=== PATIENT | female | born 1945 | race Caucasian/White ===

== ENCOUNTER → 2016-09-18 | Outpatient (CLI) | payer OTHER ==
[~2016-09-18] MED LIST: AMOX500T PO; AMOX875T PO; ASPEC81 PO; ATEN50TA8 PO; ATOR-24 PO; CEPH500C2 PO; ECRCR EXT; FLUT1INH7 INH; FRS/40 PO; LISI-788 PO; LSN20 PO; LVMI SC; METO-452 PO; NICO14DI5 TD; POTA10CA28 PO; SALI0.6510; SNTO30 EXT; VNTHFA/IN INH; VTMD1000 PO
--- NOTE | 2016-09-18 11:51 | DIAGNOSTIC IMAGING REPORT ---
CHEST 2 VIEWS ROUTINE CLINICAL HISTORY: COPD EXACT dyspnea COMPARISON STUDY: No previous studies for comparison. FINDINGS: Small bilateral pleural effusions. Mild cardia megaly. Lungs otherwise appear clear. IMPRESSION: Small bilateral pleural effusions. Mild cardia megaly. Electronically signed by: Humberto Hdz M.D. 09/18/2016 11:50 AM Dictated Date/Time: 09/18/2016 11:50 AM
[2016-09-18 12:50] LABS: BASO % 0.4 %; BASO ABS # 0.04 K/uL (0-0.2); EOS % 2.7 %; HEMATOCRIT 43.5 % (37-47); IG% 0.2 %; LYMPH % 8.7 %; LYMPH ABS # 0.85 K/uL (1.2-3.4); MEAN CELL VOLUME 92.6 fL (80-100); MEAN CORPUSCULAR HEMOGLOBIN 29.6 pg (25-34); MEAN PLATELET VOLUME 8.9 fL (7.4-10.4); MONO % 7.2 %; NEUT % 80.8 %; PLATELET COUNT 296 K/uL (130-400); WHITE BLOOD COUNT 9.81 K/uL (4.8-10.8)
[2016-09-18 13:14] LABS: COMPLETE YES
[2016-09-18 13:20] LABS: BLOOD UREA NITROGEN 9 mg/dl (7-18); GLUCOSE 68 mg/dl (70-99)
[2016-09-18 13:21] LABS: ALB/GLOB RATIO 0.8 (0.9-2); ALKALINE PHOSPHATASE 111 U/L (45-117); ALT/SGPT 25 U/L (12-78); AST/SGOT 28 U/L (15-37); BUN/CREATININE RATIO 18.2 (10-20); CALCIUM 8.2 mg/dl (8.5-10.1); CARBON DIOXIDE 24 mmol/L (21-32); CHLORIDE 99 mmol/L (98-107); CREATININE 0.48 mg/dl (0.60-1.20); POTASSIUM 4.6 mmol/L (3.5-5.1); SODIUM 134 mmol/L (136-145)
== END | disposition home or self-care (01) ==
LOC: C.LABPVFM 11:32
PROVIDERS: ATTEND Nurse Practitioner
DX: J44.1 Chronic obstructive pulmonary disease with (acute) exacerbation (principal); J90 Pleural effusion, not elsewhere classified

== ENCOUNTER 2016-09-19 13:29 | Inpatient (IN) | payer OTHER ==
[~2016-09-19] VITALS: Ht 160 cm; Wt 73.1 kg
[2016-09-19] MEDS ORDERED: FLUT1INH7 INH (13:53)
[2016-09-19] MEDS ORDERED: ATOR-24 PO (13:53)
[2016-09-19] MEDS ORDERED: LISI-788 PO (13:53)
[2016-09-19] MEDS ORDERED: LVMI SC (13:53)
[2016-09-19] MEDS ORDERED: VNTHFA/IN INH (13:53)
[2016-09-19] MEDS ORDERED: ATEN50TA8 PO (13:53)
[2016-09-19] MEDS ORDERED: SODIUM CHLORIDE 0.9% 1000ML 1,000 ML IV STA (13:55)
--- NOTE | 2016-09-19 13:59 | EMERGENCY ROOM VISIT NOTE ---
History Report prepared by Eric: Desire Gill Under the Supervision of: Dr. Kishan Bustillo M.D. First contact with patient: 13:45 Chief Complaint: REFERRED BY DOCTOR Stated Complaint: FAMILY DOCTOR SENT TO ER History of Present Illness The patient is a 71 year old female who presents to the Emergency Room with complaints of persistent bilateral leg swelling for the past two weeks. She currently rates her discomfort as a 5/10 in severity. The patient states that she feels fine other than the swelling in her legs. The patient's daughter states that the patient saw her PCP yesterday and was instructed to come to the emergency department for further evaluation. The patient states that she saw her PCP for her shortness of breath. She states that she has had a productive cough, noting white sputum. The patient's daughter states that the patient has ulcers to her legs, fluid on her lungs, and had an elevated d-dimer at 720. The patient states that she is diabetic and her blood glucose levels have been fluctuating. She reports that she is a smoker, and reports a history of COPD and emphysema. The patient states that she had diarrhea this morning. She reports normal fluid intake. The patient denies any fever, chest pain, nausea, vomiting, or abdominal pain. The patient denies being on any blood thinners. Source of History: patient, family (daughter) Onset: two weeks Position: leg (bilateral) Symptom Intensity: 5/10 Quality: other (swelling) Timing: other (persistent) Associated Symptoms: + SOB, + diarrhea, No fevers, No chest pain, No nausea , No vomiting, No abdominal pain Review of Systems See HPI for pertinent positives & negatives. A total of 10 systems reviewed and were otherwise negative. Past Medical & Surgical Medical Problems: (1) COPD (chronic obstructive pulmonary disease) (2) Diabetes (3) Emphysema lung (4) Shortness of breath Old medical records were reviewed. Nurse's notes were reviewed and I agree with. Family History No pertinent family history stated. Social History Smoking Status: Current Every Day Smoker Drug Use: none Marital Status: Current/Historical Medications Scheduled Atenolol (Tenormin), 50 MG PO QAM Atorvastatin (Lipitor), 40 MG PO DAILY Fluticasone Furoate-Vilanterol (Breo Ellipta 200-25 Mcg/INH), 2 PUFF INH BID Insulin Detemir (Levemir), 46 UNITS SC DAILY Lisinopril/Hctz (Zestoretic 20MG/25MG), 1 TAB PO DAILY Scheduled PRN Albuterol Hfa (Ventolin Hfa), 2-4 PUFFS INH Q6H PRN for Shortness of Breath Allergies Coded Allergies: No Known Allergies (Unverified , 09/19/16) Physical Exam Vital Signs Date Time Temp Pulse Resp B/P (MAP) Pulse Ox O2 Delivery O2 Flow Rate FiO2 09/19/16 17:10 82 18 140/92 98 Room Air 09/19/16 15:11 85 20 139/82 96 Room Air 09/19/16 14:25 86 09/19/16 13:36 37.1 74 17 130/76 94 Room Air Physical Exam General: Well developed well nourished chronically ill appearing older female in no acute distress, breathing comfortably on room air. Normal speech HEENT: Normal cephalic atraumatic. Pupils are equal round and reactive to light. Sclerae anicteric. Extraocular movements are intact. Oropharynx is pink with moist mucous membranes. No swelling of the mouth lips or tongue. Neck: Supple with a midline trachea. No meningeal signs or stiffness, no JVD or bruits. No Stridor. Chest: Clear to auscultation bilaterally. No wheezes or rhonchi. No increased work of breathing. Heart: regular rate and rhythm. Abdomen: Soft nontender, nondistended without rebound guarding or rigidity. Extremities: Mild swelling bilaterally with pinkish discoloration to both legs. Multiple ulcers. No clubbing. No calf tenderness or assymetry. She has a discoloration of both of her legs which is somewhat positional is difficult to feel a pulse. Spine/Back. Non tender to palpation. No CVA tenderness Skin: Good turgor without rashes. Neurologic exam: Cranial nerves two through 12 are intact. Motor and sensation are intact and symmetrical throughout. Medical Decision & Procedures ER Provider Diagnostic Interpretation: Radiology results as stated below per my review and radiologist interpretation: CHEST ONE VIEW PORTABLE HISTORY: Atypical CHEST PAIN COMPARISON: Chest 09/18/2016. FINDINGS: The heart remains mildly enlarged. Small bilateral pleural effusions, unchanged. No pneumothorax. No new focal lung consolidations. No evidence for pulmonary edema. IMPRESSION: No change in the mild cardiomegaly and small bilateral pleural effusions. Electronically signed by: Alvarado Moyer M.D. 09/19/2016 2:24 PM Dictated Date/Time: 09/19/2016 2:[address] ANGIOGRAM OF THE CHEST CLINICAL HISTORY: Difficulty breathing. COMPARISON STUDY: Chest x-ray dated 09/17/2016 TECHNIQUE: Following the IV administration of 93 mL of Optiray-320, CT angiogram of the thorax was performed from the thoracic inlet to the lung bases utilizing the pulmonary embolus protocol. Images are reviewed in the axial, sagittal, and coronal planes. IV contrast was administered without complication. MIP imaging was performed. CT DOSE: 572.56 mGy.cm FINDINGS: No pathologically enlarged axillary mediastinal or hilar lymph nodes were visualized. There is mild ectasia of the a sitting thoracic aorta which measures 36 mm. The heart is enlarged. There are coronary artery calcifications present. There were no pulmonary artery filling defects to indicate acute pulmonary embolism. There are small bilateral pleural effusions. There is lower lobe bronchial wall thickening and mucous plugging. There is edema within the left lateral chest wall. There are T5 and T7 vertebral body compression deformities. IMPRESSION: 1. No evidence of acute pulmonary embolism 2. Bilateral pleural effusions 3. Bronchial wall thickening and lower lobe mucus plugging Electronically signed by: Alexander Fernandez M.D. 09/19/2016 3:57 PM Dictated Date/Time: 09/19/2016 3:53 PM Laboratory Results 09/19/16 14:30 Red Blood Count 4.47, Mean Corpuscular Volume 90.4, Mean Corpuscular Hemoglobin 28.6, Mean Corpuscular Hemoglobin Concent 31.7, Mean Platelet Volume 8.6, Neutrophils (%) (Auto) 80.5, Lymphocytes (%) (Auto) 9.3, Monocytes (%) (Auto) 8.2, Eosinophils (%) (Auto) 1.7, Basophils (%) (Auto) 0.2, Neutrophils # (Auto) 6.66, Lymphocytes # (Auto) 0.77, Monocytes # (Auto) 0.68, Eosinophils # (Auto) 0.14, Basophils # (Auto) 0.02 09/19/16 14:30 Test 09/19/16 14:30 09/19/16 14:35 09/19/16 14:48 09/19/16 18:18 White Blood Count 8.28 K/uL (4.8-10.8) Red Blood Count 4.47 M/uL (4.2-5.4) Hemoglobin 12.8 g/dL (12.0-16.0) Hematocrit 40.4 % (37-47) Mean Corpuscular Volume 90.4 fL (80-100) Mean Corpuscular Hemoglobin 28.6 pg (25-34) Mean Corpuscular Hemoglobin Concent 31.7 g/dl (32-36) Platelet Count 335 K/uL (130-400) Mean Platelet Volume 8.6 fL (7.4-10.4) Neutrophils (%) (Auto) 80.5 % Lymphocytes (%) (Auto) 9.3 % Monocytes (%) (Auto) 8.2 % Eosinophils (%) (Auto) 1.7 % Basophils (%) (Auto) 0.2 % Neutrophils # (Auto) 6.66 K/uL (1.4-6.5) Lymphocytes # (Auto) 0.77 K/uL (1.2-3.4) Monocytes # (Auto) 0.68 K/uL (0.11-0.59) Eosinophils # (Auto) 0.14 K/uL (0-0.5) Basophils # (Auto) 0.02 K/uL (0-0.2) RDW Standard Deviation 51.5 fL (36.4-46.3) RDW Coefficient of Variation 15.6 % (11.5-14.5) Immature Granulocyte % (Auto) 0.1 % Immature Granulocyte # (Auto) 0.01 K/uL (0.00-0.02) Erythrocyte Sedimentation Rate 41 mm/hr (0-21) Anion Gap 8.0 mmol/L (3-11) Estimated GFR () 107.8 Estimated GFR (Non- 93.0 BUN/Creatinine Ratio 17.3 (10-20) Calcium Level 8.8 mg/dl (8.5-10.1) Total Bilirubin 1.6 mg/dl (0.2-1) Direct Bilirubin 0.5 mg/dl (0-0.2) Aspartate Amino Transf (AST/SGOT) 27 U/L (15-37) Alanine Aminotransferase (ALT/SGPT) 22 U/L (12-78) Alkaline Phosphatase 107 U/L (45-117) Total Protein 6.6 gm/dl (6.4-8.2) Albumin 3.0 gm/dl (3.4-5.0) Lipase 86 U/L (73-393) Bedside Lactic Acid Venous 1.15 mmol/L (0.90-1.70) Bedside D-Dimer > 450 ng/mlFEU (0-450) Bedside Troponin I < 0.030 ng/ml (0-0.045) LB-Kqh-N-Type Natriuretic Peptide 5560 pg/ml (0-900) Bedside Glucose 93 mg/dl (70-90) Laboratory studies as stated above per my review. Medications Administered Medications (Trade) Dose Ordered Sig/Kal Route Start Time Stop Time Status Last Admin Dose Admin Sodium Chloride 1,000 ml @ 999 mls/hr Q1H1M STAT IV 09/19/16 13:55 09/19/16 14:55 DC 09/19/16 15:10 999 MLS/HR Piperacillin Sod/ Tazobactam Sod (Zosyn Iv) 4.5 gm NOW STAT IV 09/19/16 16:28 09/19/16 16:30 DC 09/19/16 16:59 4.5 GM Insulin Detemir (Levemir Flexpen/ FlexTouch) 34 unit ONE STAT SC 09/19/16 16:35 09/19/16 16:37 DC 09/19/16 17:01 34 UNIT ECG Indication: SOB/dyspnea Rate (beats per minute): 86 Rhythm: normal sinus Findings: nonspecific-ST abn (Lateral), no acute ischemic change, prolonged QT (514) Comparison ECG Date: no prior available ED Course 1347: Past medical records reviewed. The patient was evaluated in room C8, and a complete history and physical examination were performed. 1355: Ordered Sodium Chloride 1000 ml @ 999 mls/hr IV. 1542: I reevaluated the patient and she is resting comfortably. 1620: I reevaluated the patient and she is resting comfortably. I discussed the exam findings with her and I discussed the treatment plan. She verbalized complete understanding and agreement. She will be evaluated for further treatment. 1628: Ordered Zosyn IV 4.5 gm IV. 1633: I discussed the patients case with Dr. Robertson [facility] [place]. He will evaluate the patient for further treatment. 1635: Ordered Insulin Detemir 34 unit SC. Medical Decision Differentials include, but are not limited to; cellulitis, diabetic complication , CHF, sepsis, electrolyte or metabolic abnormality. Medication Reconciliation: I attest that I have personally reviewed the patient' s current medication list. Blood pressure Screening: Patient was found to have normal blood pressure on screening and does not require follow-up. This patient comes in as described above. She's had several complaints. The main one is her legs she's also had some shortness of breath her doctor encouraged her to come here yesterday and she declined but didn't did show up today. I reviewed her workup from yesterday her d-dimer was mildly elevated. She's had bilateral small pleural effusions I repeated her workup here Her EKG does not suggest acute coronary event. She does have some bilateral pleural effusions. I did a chest CT and she has no evidence of PE but she has these effusions. She has no white count or a lactic acid elevation. She has no significant electrode or metabolic abnormalities. She was given Zosyn 4.5 g IV to cover the possibility of infection/cellulitis/ulcers. I think there is also vascular component and she may need further workup for this as well. these symptoms have been more subacute, I believe. She has no foot pain to suggest acute ischemic event. I have consulted the [facility] team to see her in the ER they will admit her for these measures. Consults Time Called: 1629 Consulting Physician: JULIA Leon Returned Call: 1633 I discussed the patients case with JULIA Leon. He will evaluate the patient for further treatment. Impression Primary Impression: Peripheral edema Additional Impressions: Cellulitis Lower extremity ulceration Diabetes Scribe Attestation The scribe's documentation has been prepared under my direction and personally reviewed by me in its entirety. I confirm that the note above accurately reflects all work, treatment, procedures, and medical decision making performed by me. Departure Information Dispostion Being Evaluated By Hospitalist Nya Chao M.D. (PCP) Problem Qualifiers
--- NOTE | 2016-09-19 14:26 | DIAGNOSTIC IMAGING REPORT ---
CHEST ONE VIEW PORTABLE HISTORY: Atypical CHEST PAIN COMPARISON: Chest 09/18/2016. FINDINGS: The heart remains mildly enlarged. Small bilateral pleural effusions, unchanged. No pneumothorax. No new focal lung consolidations. No evidence for pulmonary edema. IMPRESSION: No change in the mild cardiomegaly and small bilateral pleural effusions. Electronically signed by: Alvarado Moyer M.D. 09/19/2016 2:24 PM Dictated Date/Time: 09/19/2016 2:23 PM
[2016-09-19 14:55] LABS: BASO % 0.2 %; BASO ABS # 0.02 K/uL (0-0.2); COMPLETE YES; EOS % 1.7 %; HEMATOCRIT 40.4 % (37-47); IG% 0.1 %; LYMPH % 9.3 %; LYMPH ABS # 0.77 K/uL (1.2-3.4); MEAN CELL VOLUME 90.4 fL (80-100); MEAN CORPUSCULAR HEMOGLOBIN 28.6 pg (25-34); MEAN CORPUSCULAR HGB CONC 31.7 g/dl (32-36); MEAN PLATELET VOLUME 8.6 fL (7.4-10.4); MONO % 8.2 %; NEUT % 80.5 %; PLATELET COUNT 335 K/uL (130-400); RED BLOOD COUNT 4.47 M/uL (4.2-5.4); WHITE BLOOD COUNT 8.28 K/uL (4.8-10.8)
[2016-09-19 15:11] LABS: POINT OF CARE PRO-BNP 5560 pg/ml (0-900); POINT OF CARE TROPONIN I < 0.030 ng/ml (0-0.045)
[2016-09-19 15:22] LABS: ALT/SGPT 22 U/L (12-78); BLOOD UREA NITROGEN 10 mg/dl (7-18); BUN/CREATININE RATIO 17.3 (10-20); CALCIUM 8.8 mg/dl (8.5-10.1); CARBON DIOXIDE 29 mmol/L (21-32); CHLORIDE 99 mmol/L (98-107); GLUCOSE 109 mg/dl (70-99); POTASSIUM 4.1 mmol/L (3.5-5.1); SODIUM 136 mmol/L (136-145)
[2016-09-19 15:25] LABS: ALKALINE PHOSPHATASE 107 U/L (45-117); AST/SGOT 27 U/L (15-37)
[2016-09-19] MEDS ORDERED: OPTIRAY 320 IV PRN (15:30)
--- NOTE | 2016-09-19 15:59 | DIAGNOSTIC IMAGING REPORT ---
CT ANGIOGRAM OF THE CHEST CLINICAL HISTORY: Difficulty breathing. COMPARISON STUDY: Chest x-ray dated 09/17/2016 TECHNIQUE: Following the IV administration of 93 mL of Optiray-320, CT angiogram of the thorax was performed from the thoracic inlet to the lung bases utilizing the pulmonary embolus protocol. Images are reviewed in the axial, sagittal, and coronal planes. IV contrast was administered without complication. MIP imaging was performed. CT DOSE: 572.56 mGy.cm FINDINGS: No pathologically enlarged axillary mediastinal or hilar lymph nodes were visualized. There is mild ectasia of the a sitting thoracic aorta which measures 36 mm. The heart is enlarged. There are coronary artery calcifications present. There were no pulmonary artery filling defects to indicate acute pulmonary embolism. There are small bilateral pleural effusions. There is lower lobe bronchial wall thickening and mucous plugging. There is edema within the left lateral chest wall. There are T5 and T7 vertebral body compression deformities. IMPRESSION: 1. No evidence of acute pulmonary embolism 2. Bilateral pleural effusions 3. Bronchial wall thickening and lower lobe mucus plugging Electronically signed by: Alexander Fernandez M.D. 09/19/2016 3:57 PM Dictated Date/Time: 09/19/2016 3:53 PM
[2016-09-19] MEDS ORDERED: PIPERACILLIN/TAZOBACTAM 4.5 GM/100ML D5W IV STA (16:28)
[2016-09-19] MEDS ORDERED: INSULIN DETEMIR FLEXPEN/FLEX TOUCH 100 UNITS/ML 3ML SC STA (16:35)
--- NOTE | 2016-09-19 17:24 | History and Physical ---
History & Physical Date & Time of Service: Sep 19, 2016 at 17:22 Chief Complaint: Family Doctor Sent To Er Primary Care Physician: Nya Rodarte M.D. History of Present Illness Source: patient 71F with a PMHx of HTN, HLD, COPD, DM2 on insulin was sent over from her PCPs office for significant dyspnea on exertion and lower extremity ulcerations. Daughter and grandaughter are present at bedside and add to the history. For the past two weeks the patient has been having signficant dyspnea on exertion. According to the pt she was immobile because her left hip was hurting her and causing her to be out of breath. She can no longer go up her stairs at home without getting short of breath. She developed a new onset cough during this period. Pt has an over 60 pack year smoking history (1.5ppd x 40 years). She denies ever having heart problems in the past. Pt has chronic lower extremity ulcerations that have been there for a long time - they are because of her diabetes. Patient is able to ambulate on her own except in the past two weeks her ambulation has been severely limited. ROS: No chest pain, denies being in any pain anywhere, no palpitations, no fevers, no chills, no nausea, no vomiting, +diarrhea today, no dysuria, no rash. PMHx: Staph infection from a cat scratch PSHx: Denies Allergies: NKDA Meds: As documented. 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 Past Medical/Surgical History Medical Problems: (1) COPD (chronic obstructive pulmonary disease) Status: Chronic (2) Diabetes Status: Chronic (3) Emphysema lung Status: Chronic Social History Smoking Status: Current Every Day Smoker Marital Status: Allergies Coded Allergies: No Known Allergies (Unverified , 09/19/16) Home Medications Scheduled Atenolol (Tenormin), 50 MG PO QAM Atorvastatin (Lipitor), 40 MG PO DAILY Fluticasone Furoate-Vilanterol (Breo Ellipta 200-25 Mcg/INH), 2 PUFF INH BID Insulin Detemir (Levemir), 46 UNITS SC DAILY Lisinopril/Hctz (Zestoretic 20MG/25MG), 1 TAB PO DAILY Scheduled PRN Albuterol Hfa (Ventolin Hfa), 2-4 PUFFS INH Q6H PRN for Shortness of Breath Physical Exam Vital Signs Date Time Temp Pulse Resp B/P (MAP) Pulse Ox O2 Delivery O2 Flow Rate FiO2 09/19/16 17:10 82 18 140/92 98 Room Air 09/19/16 15:11 85 20 139/82 96 Room Air 09/19/16 14:25 86 09/19/16 13:36 37.1 74 17 130/76 94 Room Air General Appearance: WD/WN, no apparent distress, + obese Head: normocephalic, atraumatic Eyes: PERRL, EOMI Respiratory/Chest: chest non-tender, no respiratory distress, no accessory muscle use, + pertinent finding (slight crackling in the posterior lung beyer) Cardiovascular: regular rate, rhythm, no murmur, + JVD, + pertinent finding (1 + pitting edema in the LE, cannot palpate DP pulses bilaterally, cyanosis in the toes) Back: no CVA tenderness Extremities/Musculoskelatal: + pertinent finding (numerous circular weeping ulcerations over all aspects of the lower extremities. No tenderness to palpation below the knees bilaterally, ecchymosis over the left calf yet the area is non tender.) Neurologic/Psych: no motor/sensory deficits, alert, normal mood/affect, oriented x 3, + pertinent finding (intact sensation to light touch over the lower extremities bilaterally) Diagnostics Laboratory Results Results Past 24 Hours Test 09/19/16 14:22 09/19/16 14:30 09/19/16 14:35 09/19/16 14:48 Range/Units Bedside Glucose 112 70-90 mg/dl White Blood Count 8.28 4.8-10.8 K/uL Red Blood Count 4.47 4.2-5.4 M/uL Hemoglobin 12.8 12.0-16.0 g/dL Hematocrit 40.4 37-47 % Mean Corpuscular Volume 90.4 80-100 fL Mean Corpuscular Hemoglobin 28.6 25-34 pg Mean Corpuscular Hemoglobin Concent 31.7 32-36 g/dl Platelet Count 335 130-400 K/uL Mean Platelet Volume 8.6 7.4-10.4 fL Neutrophils (%) (Auto) 80.5 % Lymphocytes (%) (Auto) 9.3 % Monocytes (%) (Auto) 8.2 % Eosinophils (%) (Auto) 1.7 % Basophils (%) (Auto) 0.2 % Neutrophils # (Auto) 6.66 1.4-6.5 K/uL Lymphocytes # (Auto) 0.77 1.2-3.4 K/uL Monocytes # (Auto) 0.68 0.11-0.59 K/uL Eosinophils # (Auto) 0.14 0-0.5 K/uL Basophils # (Auto) 0.02 0-0.2 K/uL RDW Standard Deviation 51.5 36.4-46.3 fL RDW Coefficient of Variation 15.6 11.5-14.5 % Immature Granulocyte % (Auto) 0.1 % Immature Granulocyte # (Auto) 0.01 0.00-0.02 K/uL Sodium Level 136 136-145 mmol/L Potassium Level 4.1 3.5-5.1 mmol/L Chloride Level 99 98-107 mmol/L Carbon Dioxide Level 29 21-32 mmol/L Anion Gap 8.0 3-11 mmol/L Blood Urea Nitrogen 10 7-18 mg/dl Creatinine 0.60 0.60-1.20 mg/dl Estimated GFR () 107.8 Estimated GFR (Non- 93.0 BUN/Creatinine Ratio 17.3 10-20 Random Glucose 109 70-99 mg/dl Calcium Level 8.8 8.5-10.1 mg/dl Total Bilirubin 1.6 0.2-1 mg/dl Direct Bilirubin 0.5 0-0.2 mg/dl Aspartate Amino Transf (AST/SGOT) 27 15-37 U/L Alanine Aminotransferase (ALT/SGPT) 22 12-78 U/L Alkaline Phosphatase 107 45-117 U/L Total Protein 6.6 6.4-8.2 gm/dl Albumin 3.0 3.4-5.0 gm/dl Lipase 86 73-393 U/L Bedside Lactic Acid Venous 1.15 0.90-1.70 mmol/L Bedside D-Dimer > 450 0-450 ng/mlFEU Bedside Troponin I < 0.030 0-0.045 ng/ml YL-Rwc-G-Type Natriuretic Peptide 5560 0-900 pg/ml Microbiology Results 09/19/16 Blood Culture, Received Pending 09/19/16 Blood Culture, Received Pending Diagnostic Radiology CT ANGIOGRAM OF THE CHEST CLINICAL HISTORY: Difficulty breathing. COMPARISON STUDY: Chest x-ray dated 09/17/2016 TECHNIQUE: Following the IV administration of 93 mL of Optiray-320, CT angiogram of the thorax was performed from the thoracic inlet to the lung bases utilizing the pulmonary embolus protocol. Images are reviewed in the axial, sagittal, and coronal planes. IV contrast was administered without complication. MIP imaging was performed. CT DOSE: 572.56 mGy.cm FINDINGS: No pathologically enlarged axillary mediastinal or hilar lymph nodes were visualized. There is mild ectasia of the a sitting thoracic aorta which measures 36 mm. The heart is enlarged. There are coronary artery calcifications present. There were no pulmonary artery filling defects to indicate acute pulmonary embolism. There are small bilateral pleural effusions. There is lower lobe bronchial wall thickening and mucous plugging. There is edema within the left lateral chest wall. There are T5 and T7 vertebral body compression deformities. IMPRESSION: 1. No evidence of acute pulmonary embolism 2. Bilateral pleural effusions 3. Bronchial wall thickening and lower lobe mucus plugging CHEST ONE VIEW PORTABLE HISTORY: Atypical CHEST PAIN COMPARISON: Chest 09/18/2016. FINDINGS: The heart remains mildly enlarged. Small bilateral pleural effusions, unchanged. No pneumothorax. No new focal lung consolidations. No evidence for pulmonary edema. IMPRESSION: No change in the mild cardiomegaly and small bilateral pleural effusions. EKG Normal sinus rhythm T wave abnormality, consider lateral ischemia Prolonged QT Abnormal ECG No previous ECGs available Impression Assessment and Plan 71F with a PMHx of Diabetes (on insulin), HTN,HLD, COPD, Staph from Cat bite presents with 1-2 weeks of SOB, significant dyspnea on exertion. BNP >5000. D- Dimer is elevated. CT and X-ray of the chest showed pleural effusions. Pt has crackles in the lower lobes. Giving Lasix now, echo ordered, cards consult appreciated, Arterial dopplers orders, venous doppler ordered. Acute CHF - Fluid in lungs and LE bilaterally. Elevated BNP. - Lasix 20mg IV now + daily. (Lasix naive, only takes HCTZ for BP) - Cards consulted. (Dr. Trevino who's publication specialist for [facility]) - Echo ordered. - c/w Atenolol 50qAM - c/w Lipitor 40mg daily - adding Aspirin 81mg daily. - Monitor Is and Os. Peripheral Skin Ulcerations - Not painful to pt, but weeping and oozing, multiple sites bilaterally. - start Zosyn 3.375mg Q6H - wound care consult appreciated. - bilateral arterial US ordered - I expect significant vasculopathy, consider vascular consult pending results. Left Thigh Ecchymosis Pt has significant risk for clots due to immobility, pt reports new onset bruising in left thigh, will order left extremity US. DM2 - HBA1C was 7.9 in December, f/u HBA1C - Glycemic control consult. - will likely need to be discharged on Basal + Meal coverage for insulin, pt has two family members that are CRNAs that can advise on insulin dosing. COPD - c/w Fluticasone BID + Albuterol PRN for wheezing. Smoking - Time spent at bedside advising benefits of quitting, will order smoking cessation consult. - Consider nicotine patches. HTN - c/w Lisinopril 25mg daily / HCTZ 20mg daily Dispo: Tele, Full Admit, DM2 diet + Low Sodium, PT & OT, DC Planning Eval DVT Proph: Hep SQ TID Code: Full Mr. Magallon is an 87 y/o male with PMHx of GI Bleed 2/2 Gastric Ulcers (5 years ago and 1 year ago), CAD S/P Stent x1, DVT/PE S/P IVC Filter, R Kidney CA, HTN, BPH, and Seizure Disorder who presents to the ED complaining of generalized fatigue and abdominal pain x 3 days. I personally and independently interviewed and examined the patient I reviewed labs and imaging I agree with above mentioned physical exam, History and ROS I discussed and formulated the assessment and plan with Mrs. Mercado 71 F with a PMHx of Diabetes (on insulin), HTN and COPD, p/w 10 days of SOB and significant B/L lower ext cellulitis rest of ROS is as above PE obese, not in acute distress chestdecrease air entry B/L, heart S1/S2 normal abd soft ND NT ext B/L extensive cellulitis , mottling , unable to feel pulse with doppler assessment: Acute CHF unspecified B/L lower Ext cellulitis possible B/L chronic ischemia DMII on insulin HTN COPD Plan: IV lasix, gentle diuresis I/O labs in am empiric Abx for cellulitis consult Dr. Prieto consult ID US lower ext no dvt will do arterial study likely when stable will need MRI feet R/O osteomyelitis Sorin Vicente [facility] [place] Hospitalist Resident Involvement: Resident Care Provided Care Provided: Adult Hospital Medicine
[2016-09-19] MEDS ORDERED: ONDANSETRON INJ 2 MG/ML 2 ML VIAL IV PRN (18:00)
[2016-09-19] MEDS ORDERED: MAGNESIUM HYDROXIDE SUSP 30 ML UDC PO PRN (18:00)
[2016-09-19] MEDS ORDERED: ALUMINUM/MAGNESIUM/SIMETH (MAALOX MAX) 30 ML UDC PO PRN (18:00)
[2016-09-19] MEDS ORDERED: POLYETHYLENE (MIRALAX) 17 GM PACK PO PRN (18:00)
[2016-09-19] MEDS ORDERED: PHARMACY GLYCEMIC MGMT CONSULT PRN (18:17)
[2016-09-19 19:45] VITALS: O2SAT 97
--- NOTE | 2016-09-19 19:48 | DIAGNOSTIC IMAGING REPORT ---
ULTRASOUND BILATERAL LOWER EXTREMITY VENOUS CLINICAL HISTORY: Immobilized patient. Elevated d-dimer. COMPARISON STUDY: No priors. TECHNIQUE: Real-time, grayscale, and color Doppler sonography of the deep veins of the right and left lower extremity was performed from the inguinal crease to the calf. Compression and augmentation were utilized. FINDINGS: There is no sonographic evidence of deep venous thrombosis identified in the right or left lower extremity. The common femoral, superficial femoral, and popliteal veins are patent and normally compressible bilaterally. The greater saphenous vein and the profunda femoris vein at the junction with the common femoral vein are clear in both legs. The visualized calf veins are patent bilaterally. Subcutaneous soft tissue edema is present in both legs. IMPRESSION: There is no sonographic evidence of deep venous thrombosis identified in the right or left lower extremity. Electronically signed by: Vern Stanford M.D. 09/19/2016 7:46 PM Dictated Date/Time: 09/19/2016 7:45 PM
[2016-09-19] MEDS ORDERED: FUROSEMIDE INJ 20 MG in SYRINGE 0 ML IV ONE (20:00)
[2016-09-19] MEDS ORDERED: NICOTINE 7 MG/24 HR TDSY TD ONE (20:00)
[2016-09-19] MEDS ORDERED: PIPERACILL/TAZOBAC CONSULT ACTIVE PRN (20:00)
[2016-09-19 20:02] VITALS: BP 146/83; PULSE 89; TEMP 36.7; O2SAT 97; Ht 160 cm; Wt 73.1 kg
[2016-09-19] MEDS ORDERED: GLUCOSE 40% GEL 15 GM TUBE PO PRN (20:15)
[2016-09-19] MEDS ORDERED: GLUCOSE 10 TABS/TUBE PO PRN (20:15)
[2016-09-19] MEDS ORDERED: GLUCAGON FOR INJ 1 MG VIAL SQ PRN (20:15)
[2016-09-19] MEDS ORDERED: DEXTROSE 50% 50 ML SYR IV PRN (20:15)
[2016-09-19 20:22] LABS: PROTHROMBIN TIME (PATIENT) 11.1 SECONDS (9.0-12.0)
--- NOTE | 2016-09-19 20:34 | Pharmacy Progress Note ---
Glycemic Control Intl Consult Date of Service Sep 19, 2016. Scope Glycemic Pharmacist consulted on 09/19/16 for glycemic control and to write orders per [facility] inpatient glycemic control protocol Objective Weight (Kilograms): 77.700 Accuchecks BSG (last 24hrs): Test 09/19/16 14:22 09/19/16 14:30 09/19/16 18:18 Bedside Glucose 112 mg/dl (70-90) 93 mg/dl (70-90) Random Glucose 109 mg/dl (70-99) Laboratory Data (last 24hrs) Test 09/19/16 14:30 Anion Gap 8.0 mmol/L BUN/Creatinine Ratio 17.3 Blood Urea Nitrogen 10 mg/dl Creatinine 0.60 mg/dl Potassium Level 4.1 mmol/L Sodium Level 136 mmol/L White Blood Count 8.28 K/uL Red Blood Count 4.47 M/uL Hemoglobin 12.8 g/dL Hematocrit 40.4 % Mean Corpuscular Volume 90.4 fL Mean Corpuscular Hemoglobin 28.6 pg Mean Corpuscular Hemoglobin Concent 31.7 g/dl Platelet Count 335 K/uL Mean Platelet Volume 8.6 fL Neutrophils (%) (Auto) 80.5 % Lymphocytes (%) (Auto) 9.3 % Monocytes (%) (Auto) 8.2 % Eosinophils (%) (Auto) 1.7 % Basophils (%) (Auto) 0.2 % Neutrophils # (Auto) 6.66 K/uL Lymphocytes # (Auto) 0.77 K/uL Monocytes # (Auto) 0.68 K/uL Eosinophils # (Auto) 0.14 K/uL Basophils # (Auto) 0.02 K/uL HbA1c Test 09/19/16 14:30 Recent Pertinent Medications Outpatient Anti-diabetic Regimen: * Levemir 46 u daily @1630 * A1c = 7.9 % 12/2015 (per MD's note) The patient is currently receiving: * Basal insulin: Levemir 34 units X 1 in the ER @1630 Risk Factors for Insulin Resistance: * Diet Assessment & Plan ASSESSMENT: * 71 yo diabetic F admitted with acute CHF exacerbation * In ER BSG 93 mg/dL and admitting MD gave one time dose of Levemir 34 units ( reduced from home regimen of 46 units) * Per patient, she always takes her Levemir with supper * Most recent A1c from December, A1c with labs for tomorrow * Plan will be to initiate basal/bolus regimen utilizing patient's weight and known outpatient dosing * ADA & AACE recommend a goal blood sugar range 140-180 mg/dl for the majority of critically ill & non-critically ill patients. However, more stringent targets may be selected in individual cases. PLAN FOR INPATIENT GLYCEMIC CONTROL: * Basal insulin with LEVEMIR 24 units SQ daily@1630 * Correctional Insulin with NOVOLOG per scale ACHS or Q6hrs while NPO * Goal Range: Low 140 mg/dL - High 180 mg/dL (may need tightened tomorrow based on A1c and BSG trend) * Correction Factor: 35 mg/dL/unit * Nutritional / Prandial insulin per carb ratio of 1 unit per 12 grams CHO consumed * Please note that the plan above was derived based on current level of insulin resistance and hospital stress. These recommendations are appropriate for inpatient admission only. Plan of care upon discharge will need to be reassessed to avoid potential outpatient hypo/hyperglycemia. Thank you.
[2016-09-19] MEDS: INSULIN ASPART 100 UNITS/ML 3 ML PEN SC SCH (20:37)
--- NOTE | 2016-09-19 21:29 | Pharmacy Progress Note ---
Pharmacy Abx Initial Consult Date of Service Sep 19, 2016. Pharmacy Dosing Scope Date of Consult: 09/19/16 Pharmacy is consulted to initiate Vancomycin/Zosyn IV dosing therapy, order appropriate labs and adjust drug dose/frequency. Subjective The patient is a 71 year old female admitted on Sep 19, 2016 at 18:17. Objective Height (Feet): 5 Height (Inches): 3.00 Weight (Kilograms): 77.700 Vital Signs (Past 12Hrs) Vital Signs Past 12 Hours Date Time Temp Pulse Resp B/P (MAP) Pulse Ox O2 Delivery O2 Flow Rate FiO2 09/19/16 20:02 36.7 89 18 146/83 97 Room Air 09/19/16 19:00 80 18 140/96 98 Room Air 09/19/16 17:10 82 18 140/92 98 Room Air 09/19/16 15:11 85 20 139/82 96 Room Air 09/19/16 14:25 86 09/19/16 13:36 37.1 74 17 130/76 94 Room Air Lab Results (24Hrs) Laboratory Tests (24 Hours) Test 09/19/16 14:30 Erythrocyte Sedimentation Rate 41 mm/hr (0-21) H White Blood Count 8.28 K/uL (4.8-10.8) Red Blood Count 4.47 M/uL (4.2-5.4) Hemoglobin 12.8 g/dL (12.0-16.0) Hematocrit 40.4 % (37-47) Mean Corpuscular Volume 90.4 fL (80-100) Mean Corpuscular Hemoglobin 28.6 pg (25-34) Mean Corpuscular Hemoglobin Concent 31.7 g/dl (32-36) L Platelet Count 335 K/uL (130-400) Mean Platelet Volume 8.6 fL (7.4-10.4) Neutrophils (%) (Auto) 80.5 % Lymphocytes (%) (Auto) 9.3 % Monocytes (%) (Auto) 8.2 % Eosinophils (%) (Auto) 1.7 % Basophils (%) (Auto) 0.2 % Neutrophils # (Auto) 6.66 K/uL (1.4-6.5) H Lymphocytes # (Auto) 0.77 K/uL (1.2-3.4) L Monocytes # (Auto) 0.68 K/uL (0.11-0.59) H Eosinophils # (Auto) 0.14 K/uL (0-0.5) Basophils # (Auto) 0.02 K/uL (0-0.2) Micro Results Date/Time Source Procedure Growth Status 09/19/16 14:35 Blood Blood Culture Pending Received 09/19/16 14:30 Blood Blood Culture Pending Received Assessment & Plan Assessment 71 year old female initiated on Vancomycin/Zosyn IV for skin/soft tissue infection. Blood cultures pending. Plan Vancomycin IV * Loading dose: 1900 mg (25 mg/kg) * Maintenance dose: 1000 mg IV (~13-15 mg/kg) every 12 hours * Goal trough level for cellulitis: ~15 mcg/mL * Trough level ordered for 09/21/16 @0930 prior to the 1000 dose. Piperacillin/tazobactam * 4.5 g bolus administered over 30 minutes in the ED, then 3.375 g IV extended infusion every 8 hours for CrCl greater than 20 mL/min Pharmacy will continue to follow and will adjust dose/frequency as necessary. Thank you.
[2016-09-19] MEDS ORDERED: VANCOMYCIN CONSULT ACTIVE PRN (21:30)
[2016-09-19] MEDS ORDERED: VANCOMYCIN INJ 1,900 MG in SODIUM CHLORIDE 0.9% 500ML 500 ML IV ONE (21:30)
[2016-09-19] MEDS: PIPERACILL/TAZOBAC IV 3.375 GM in DEXTROSE 5% 100ML 100 ML IV SCH (22:13)
[2016-09-19] MEDS: HEPARIN SOD 5000 UNIT/0.5 ML CARP SQ SCH (22:13)
[2016-09-19 23:42] VITALS: BP 122/66; PULSE 82; TEMP 36.9; O2SAT 95
[2016-09-20] VITALS (11 sets, daily range): BP systolic 120–157; BP diastolic 69–81; PULSE 77–91; TEMP 36.4–37.1; O2SAT 91–97
[2016-09-20] MEDS ORDERED: PIPERACILL/TAZOBAC IV 3.375 GM in DEXTROSE 5% 100ML 100 ML IV SCH ×2
[2016-09-20] MEDS ORDERED: BREO-ELLIPTA~ORDER AWAITING ACTION SCH
[2016-09-20 00:50] LABS: CKMB/CK RATIO 2.1 (0-3.0)
[2016-09-20] MEDS ORDERED: NURSING DECISION MEDICATION ORDER SCH (03:45)
[2016-09-20] MEDS ORDERED: SODIUM CHLORIDE 0.65% NA SOLN 45 ML (OCEAN) ONE (04:03)
[2016-09-20] MEDS: ALBUTEROL HFA 8 GM INHALER INH PRN ×3 (04:05→23:54)
[2016-09-20] MEDS ORDERED: SODIUM CHLORIDE 0.65% NA SOLN 45 ML (OCEAN) PRN (04:30)
[2016-09-20] MEDS: PIPERACILL/TAZOBAC IV 3.375 GM in DEXTROSE 5% 100ML 100 ML IV SCH ×3 (05:35→22:13)
[2016-09-20] MEDS: HEPARIN SOD 5000 UNIT/0.5 ML CARP SQ SCH ×3 (05:43→22:16)
[2016-09-20 06:15] LABS: ESTIMATED AVERAGE GLUCOSE 105 mg/dl; HA1C FLAG Normal (Normal)
[2016-09-20] MEDS ORDERED: PERFLUTREN LIPID MICROSPHERE (DEFINITY) IV ONE (07:17)
[2016-09-20] MEDS: NICOTINE 14 MG/24 HR TDSY TD SCH (07:50)
[2016-09-20] MEDS: ATORVASTATIN 40 MG TAB PO SCH (07:51)
[2016-09-20] MEDS: FLUTICASONE FUROATE-VILANTEROL 200/25 MCG INH INH SCH ×2 (07:51→21:04)
[2016-09-20] MEDS: FUROSEMIDE INJ 20 MG in SYRINGE 0 ML IV SCH (07:51)
[2016-09-20] MEDS: ASPIRIN 81 MG ECTAB PO SCH (07:51)
[2016-09-20 08:05] LABS: BASO % 0.3 %; BASO ABS # 0.02 K/uL (0-0.2); COMPLETE YES; EOS % 2.3 %; HEMATOCRIT 41.1 % (37-47); IG% 0.2 %; LYMPH % 9.7 %; LYMPH ABS # 0.64 K/uL (1.2-3.4); MEAN CELL VOLUME 91.9 fL (80-100); MEAN CORPUSCULAR HEMOGLOBIN 29.3 pg (25-34); MEAN CORPUSCULAR HGB CONC 31.9 g/dl (32-36); MONO % 9.9 %; NEUT % 77.6 %; PLATELET COUNT 290 K/uL (130-400); RED BLOOD COUNT 4.47 M/uL (4.2-5.4); WHITE BLOOD COUNT 6.58 K/uL (4.8-10.8)
[2016-09-20] MEDS: INSULIN ASPART 100 UNITS/ML 3 ML PEN SC SCH ×4 (08:05→21:00)
[2016-09-20 08:37] LABS: ALT/SGPT 23 U/L (12-78); AST/SGOT 27 U/L (15-37); BLOOD UREA NITROGEN 10 mg/dl (7-18); BUN/CREATININE RATIO 15.3 (10-20); CALCIUM 8.9 mg/dl (8.5-10.1); CARBON DIOXIDE 29 mmol/L (21-32); CHLORIDE 98 mmol/L (98-107); CHOLESTEROL 132 mg/dl (0-200); CREATININE 0.68 mg/dl (0.60-1.20); GLUCOSE 101 mg/dl (70-99); MAGNESIUM 2.1 mg/dl (1.8-2.4); POTASSIUM 3.8 mmol/L (3.5-5.1); SODIUM 134 mmol/L (136-145); TRIGLYCERIDES 108 mg/dl (0-150); VERY LOW DENSITY LIPOPROT CALC 22 mg/dl
[2016-09-20 08:40] LABS: ALB/GLOB RATIO 0.8 (0.9-2); ALKALINE PHOSPHATASE 89 U/L (45-117); CHOLESTEROL/HDL RATIO 2.4; CKMB/CK RATIO 2.2 (0-3.0); HDL CHOLESTEROL 56 mg/dl; LDL CHOLESTEROL CALCULATED 54 mg/dl; PHOSPHORUS 3.7 mg/dl (2.5-4.9)
[2016-09-20] MEDS: ALBUT/IPRATROP 3MG/0.5MG NEB 3 ML VIAL INH SCH ×4 (08:56→19:02)
[2016-09-20] MEDS ORDERED: POTASSIUM CHLORIDE 10 MEQ TABCR PO SCH (09:00)
[2016-09-20] MEDS ORDERED: LISINOPRIL/HCTZ 20/25MG TAB PO SCH (09:00)
[2016-09-20] MEDS: ACETAMINOPHEN 325 MG TAB PO PRN (09:05)
[2016-09-20] MEDS: VANCOMYCIN INJ 1,000 MG in SODIUM CHLORIDE 0.9% 250ML 250 ML IV SCH ×2 (09:53→22:13)
--- NOTE | 2016-09-20 10:14 | Clinical Documentation Query ---
QUERY 1 OF [address] DIANA, Please document specificity on CHF once ECHO results are obtained. In your clinical opinion is this patient being managed for: ( ) Acute diastolic CHF ( ) Acute systolic CHF (x ) Acute combined systolic and diastolic CHF ( ) Other explanation of clinical findings (Please Explain) ( ) Unable to determine (Please Define) ( ) Need to Discuss ( ) Not Agree The medical record reflects the following clinical findings, treatment, and risk factors. Clinical Indicators: 71 yo female presenting with persistent bilateral LE edema and shortness of breath. Diagnosed with acute CHF. Treatment: IV lasix, tele, I/O, ECHO results are pending Risk Factors: age, HTN, DM, COPD QUERY 2 OF 2 In your clinical opinion is this patient being managed for: (x ) Chronic kidney disease, stage 1-2 ( ) Other explanation of clinical findings (Please Explain) ( ) Unable to determine (Please Define) ( ) Need to Discuss ( ) Not Agree The medical record reflects the following clinical findings, treatment, and risk factors. Clinical Indicators: Review of historical GFR revealed range of 66.2-100.1, also has hx of urine microalbumin of 36.9-142.6 between 02/2009-09/2011. Treatment: monitor PRP's, pt had been chronically on zestoretic as an outpatient, treat and manage comorbid diseases Risk Factors: DM, COPD, HTN Please clarify and document your clinical opinion in the progress notes and discharge summary. Terms such as "probable", "suspected", "likely", "questionable", "possible", or "still to be ruled out" are acceptable. IF IN AGREEMENT, YOU MUST DOCUMENT ABOVE DIAGNOSTIC STATEMENT IN DAILY PROGRESS NOTES AND DISCHARGE SUMMARY. This document is not part of the patient's record. Thank You, Brynn Grier, GREG [phone]
--- NOTE | 2016-09-20 10:33 | Medical Consult ---
Consultation Date of Consultation: Sep 20, 2016. Attending Physician: Tamara Chakraborty MD Reason for Consultation: Cellulitis History of Present Illness Patient is a 71-year-old female with history of COPD, diabetes, and peripheral arterial disease who presented to the emergency department with complaints of shortness of breath, dyspnea on exertion, edema of the bilateral lower extremities, and lesions on the bilateral lower extremities. She has been having increasing pain in her lower extremities prior to admission as well. The patient has noted a cough. Since admission, the patient did have a chest x- ray which showed mild cardiomegaly and small bilateral pleural effusions. She did have a chest CTA at which showed no evidence of acute PE, but did show bilateral pleural effusions, bronchial wall thickening, and lower lobe mucus plugging. Venous Doppler of the bilateral lower extremities showed no evidence DVT. Blood cultures are pending. Her white blood count on admission was 8.28. ESR was 41, and creatinine was 0.60. She was placed on empiric antibiotic therapy with IV vancomycin and Zosyn. Past Medical/Surgical History Medical Problems: (1) Cellulitis Status: Acute (2) Diabetes Status: Chronic (3) Lower extremity ulceration Status: Acute (4) Peripheral edema Status: Acute Medical Problems: (1) COPD (chronic obstructive pulmonary disease) (2) Diabetes (3) Emphysema lung (4) Shortness of breath Family History Noncontributory Social History Smoking Status: Current Every Day Smoker Drug Use: none Marital Status: Allergies Coded Allergies: No Known Allergies (Unverified , 09/19/16) Home Medications Reported Home Medications Medications Dose Route/Sig Max Daily Dose Days Date Category Ventolin Hfa (Albuterol) 200 Puffs/61565 Mcg Aers 2-4 Puffs INH Q6H PRN 09/19/16 Reported Breo Ellipta 200-25 Mcg/INH (Fluticasone Furoate-Vilanterol) 1 Inh Inh 2 Puff INH BID 09/19/16 Reported Tenormin (Atenolol) 50 Mg Tab 50 Mg PO QAM 09/19/16 Reported Zestoretic 20MG/25MG (HCTZ/Lisinopril) Tab 1 Tab PO DAILY 09/19/16 Reported Lipitor (Atorvastatin Calcium) 40 Mg Tab 40 Mg PO DAILY 09/19/16 Reported Levemir (Insulin Detemir) 100 Units/Ml Inj 46 Units SC DAILY 09/19/16 Reported Current Inpatient Medications Current Inpatient Medications Medications (Trade) Dose Ordered Sig/Kal Route Start Time Stop Time Status Last Admin Dose Admin Ioversol (Optiray 320) 100 ml UD PRN IV 09/19/16 15:30 09/23/16 15:29 Furosemide 20 mg/ Syringe 2 ml @ 4 mls/min DAILY@09 IV 09/20/16 09:00 10/20/16 08:59 09/20/16 07:51 4 MLS/MIN Potassium Chloride (Klor-Con M10) 10 meq QAM PO 09/20/16 09:00 10/20/16 08:59 09/20/16 07:51 10 MEQ Heparin Sodium (Porcine) (Heparin Sq 5000 Unit/0.5ml) 5,000 unit Q8 SQ 09/19/16 22:00 10/19/16 21:59 09/20/16 05:43 5,000 UNIT Acetaminophen (Tylenol Tab) 650 mg Q4H PRN PO 09/19/16 18:00 10/19/16 17:59 09/20/16 09:05 650 MG Al Hydrox/Mg Hydrox/Simethicone (Maalox Max Susp) 15 ml Q4H PRN PO 09/19/16 18:00 10/19/16 17:59 Magnesium Hydroxide (Milk Of Magnesia Susp) 30 ml Q6H PRN PO 09/19/16 18:00 10/19/16 17:59 Polyethylene (Miralax Powder Packet) 17 gm DAILY PRN PO 09/19/16 18:00 10/19/16 17:59 Ondansetron HCl (Zofran Inj) 4 mg Q6H PRN IV 09/19/16 18:00 10/19/16 17:59 09/19/16 20:27 4 MG Albuterol (Ventolin Hfa Inhaler) 2 puffs Q6H PRN INH 09/19/16 18:15 10/19/16 18:14 09/20/16 04:05 2 PUFFS Atenolol (Tenormin Tab) 50 mg QAM PO 09/20/16 09:00 10/20/16 08:59 09/20/16 07:51 50 MG Atorvastatin Calcium (Lipitor Tab) 40 mg DAILY PO 09/20/16 09:00 7/23/17 08:59 09/20/16 07:51 40 MG HCTZ/Lisinopril (Prinzide 20-25MG Tab) 1 tab DAILY PO 09/20/16 09:00 10/20/16 08:59 09/20/16 07:51 1 TAB Miscellaneous Information (Consult Glycemic Management Pharmacy) 1 ea UD PRN N/A 09/19/16 18:17 10/19/16 18:16 Aspirin (Ecotrin Tab) 81 mg DAILY PO 09/20/16 09:00 10/20/16 08:59 09/20/16 07:51 81 MG Piperacillin Sod/ Tazobactam Sod 3.375 gm/Dextrose 115 ml @ 28.75 mls/ hr Q8H IV 09/19/16 22:00 09/29/16 21:59 09/20/16 05:35 28.75 MLS/HR Nicotine (Nicoderm Cq 14MG Patch) 1 patch QAM TD 09/20/16 09:00 10/20/16 08:59 09/20/16 07:50 1 PATCH Miscellaneous (Remove Nicoderm Patch) 1 ea HS N/A 09/20/16 21:00 10/20/16 20:59 Piperacillin Sod/ Tazobactam Sod (Consult) 1 ea UD PRN N/A 09/19/16 20:00 10/19/16 19:59 Insulin Aspart (novoLOG ASPART) SLIDING SCALE ACHS SC 09/19/16 21:00 10/19/16 20:59 09/20/16 08:05 2 UNITS Glucose (Glucose 40% Gel) 15-30 GRAMS 15 GRAMS... UD PRN PO 09/19/16 20:15 10/19/16 20:14 Glucose (Glucose Chew Tab) 4-8 Tablets 4 Tabl... UD PRN PO 09/19/16 20:15 10/19/16 20:14 Dextrose (Dextrose 50% 50ML Syringe) 25-50ML OF 50% DW IV FOR... UD PRN IV 09/19/16 20:15 10/19/16 20:14 Glucagon (Glucagon Inj) 1 mg UD PRN SQ 09/19/16 20:15 10/19/16 20:14 Insulin Detemir (Levemir Flexpen/ FlexTouch) 24 unit DAILY@1630 SC 09/20/16 16:30 10/20/16 16:29 Vancomycin HCl 1000 mg/Sodium Chloride 270 ml @ 125 mls/hr Q12H IV 09/20/16 10:00 09/30/16 09:59 09/20/16 09:53 125 MLS/HR Vancomycin HCl (Consult) 1 ea UD PRN N/A 09/19/16 21:30 10/19/16 21:29 Fluticasone/ Vilanterol (Breo Ellipta 200-25 Mcg/Inh) 2 inha BID INH 09/20/16 09:00 10/20/16 08:59 09/20/16 07:51 2 INHA Albuterol/ Ipratropium (Duoneb) 3 ml QIDR INH 09/20/16 08:00 10/20/16 07:59 09/20/16 08:56 3 ML Sodium Chloride (Banner Nasal Atkinson) 1 sprays PRN PRN NA 09/20/16 04:30 10/20/16 04:29 Review of Systems Constitutional: + weakness, + fatigue, No fever, No chills Eyes: No worsening of vision ENT: No hearing loss Respiratory: + cough, + shortness of breath, + dyspnea on exertion ([employer]ING [employer]- now improved) Cardiovascular: No chest pain, No palpitations Abdomen: + diarrhea (yesterday- none today), No pain, No nausea, No vomiting Musculoskeletal: + swelling (b/l LE), No joint pain, No muscle pain Integumentary: + color change (erythema b/l LE, new skin ulcerations, drainage) Physical Exam Date Time Temp Pulse Resp B/P (MAP) Pulse Ox O2 Delivery O2 Flow Rate FiO2 09/20/16 08:56 91 18 94 Room Air 09/20/16 08:00 94 Room Air 09/20/16 07:25 36.4 81 18 135/75 (95) 94 Room Air 09/20/16 04:25 37.1 77 18 120/69 (86) 95 Room Air 09/20/16 04:00 Room Air 09/20/16 00:00 Room Air 09/19/16 23:42 36.9 82 20 122/66 (84) 95 Room Air 09/19/16 20:02 36.7 89 18 146/83 97 Room Air 09/19/16 19:45 97 Room Air 09/19/16 19:00 80 18 140/96 98 Room Air 09/19/16 17:10 82 18 140/92 98 Room Air 09/19/16 15:11 85 20 139/82 96 Room Air 09/19/16 14:25 86 09/19/16 13:36 37.1 74 17 130/76 94 Room Air General Appearance: no apparent distress, + obese Head: normocephalic, atraumatic Eyes: normal inspection, sclerae normal ENT: hearing grossly normal Neck: supple, trachea midline Respiratory/Chest: chest non-tender, lungs clear, no respiratory distress, no accessory muscle use, + decreased breath sounds (b/l LE) Cardiovascular: regular rate, rhythm Abdomen/GI: normal bowel sounds, non tender, soft Back: normal inspection Extremities/Musculoskelatal: + swelling (mild edema of the b/l LE and feet. No tenderness to palpation) Neurologic/Psych: alert, normal mood/affect Skin: + pertinent finding (Multiple skin ulcerations of the bilateral lower extremities- likely component of vascular disease, but multiple draining ulcerations, pustule on the right anterior tibial surface, and greenish eschar on some.) Laboratory Results ULTRASOUND BILATERAL LOWER EXTREMITY VENOUS CLINICAL HISTORY: Immobilized patient. Elevated d-dimer. COMPARISON STUDY: No priors. TECHNIQUE: Real-time, grayscale, and color Doppler sonography of the deep veins of the right and left lower extremity was performed from the inguinal crease to the calf. Compression and augmentation were utilized. FINDINGS: There is no sonographic evidence of deep venous thrombosis identified in the right or left lower extremity. The common femoral, superficial femoral, and popliteal veins are patent and normally compressible bilaterally. The greater saphenous vein and the profunda femoris vein at the junction with the common femoral vein are clear in both legs. The visualized calf veins are patent bilaterally. Subcutaneous soft tissue edema is present in both legs. IMPRESSION: There is no sonographic evidence of deep venous thrombosis identified in the right or left lower extremity. CT ANGIOGRAM OF THE CHEST CLINICAL HISTORY: Difficulty breathing. COMPARISON STUDY: Chest x-ray dated 09/17/2016 TECHNIQUE: Following the IV administration of 93 mL of Optiray-320, CT angiogram of the thorax was performed from the thoracic inlet to the lung bases utilizing the pulmonary embolus protocol. Images are reviewed in the axial, sagittal, and coronal planes. IV contrast was administered without complication. MIP imaging was performed. CT DOSE: 572.56 mGy.cm FINDINGS: No pathologically enlarged axillary mediastinal or hilar lymph nodes were visualized. There is mild ectasia of the a sitting thoracic aorta which measures 36 mm. The heart is enlarged. There are coronary artery calcifications present. There were no pulmonary artery filling defects to indicate acute pulmonary embolism. There are small bilateral pleural effusions. There is lower lobe bronchial wall thickening and mucous plugging. There is edema within the left lateral chest wall. There are T5 and T7 vertebral body compression deformities. IMPRESSION: 1. No evidence of acute pulmonary embolism 2. Bilateral pleural effusions 3. Bronchial wall thickening and lower lobe mucus plugging Item Value Date Time Blood Culture Received 09/19/16 1435 Blood Pending Blood Culture Received 09/19/16 1430 Blood Pending Last 24 Hours Test 09/19/16 14:22 09/19/16 14:30 09/19/16 14:35 09/19/16 14:48 Bedside Glucose 112 mg/dl White Blood Count 8.28 K/uL Red Blood Count 4.47 M/uL Hemoglobin 12.8 g/dL Hematocrit 40.4 % Mean Corpuscular Volume 90.4 fL Mean Corpuscular Hemoglobin 28.6 pg Mean Corpuscular Hemoglobin Concent 31.7 g/dl Platelet Count 335 K/uL Mean Platelet Volume 8.6 fL Neutrophils (%) (Auto) 80.5 % Lymphocytes (%) (Auto) 9.3 % Monocytes (%) (Auto) 8.2 % Eosinophils (%) (Auto) 1.7 % Basophils (%) (Auto) 0.2 % Neutrophils # (Auto) 6.66 K/uL Lymphocytes # (Auto) 0.77 K/uL Monocytes # (Auto) 0.68 K/uL Eosinophils # (Auto) 0.14 K/uL Basophils # (Auto) 0.02 K/uL RDW Standard Deviation 51.5 fL RDW Coefficient of Variation 15.6 % Immature Granulocyte % (Auto) 0.1 % Immature Granulocyte # (Auto) 0.01 K/uL Erythrocyte Sedimentation Rate 41 mm/hr Prothrombin Time 11.1 SECONDS Prothromb Time International Ratio 1.0 Sodium Level 136 mmol/L Potassium Level 4.1 mmol/L Chloride Level 99 mmol/L Carbon Dioxide Level 29 mmol/L Anion Gap 8.0 mmol/L Blood Urea Nitrogen 10 mg/dl Creatinine 0.60 mg/dl Estimated GFR () 107.8 Estimated GFR (Non- 93.0 BUN/Creatinine Ratio 17.3 Random Glucose 109 mg/dl Estimated Average Glucose 105 mg/dl Hemoglobin A1c 5.3 % Calcium Level 8.8 mg/dl Total Bilirubin 1.6 mg/dl Direct Bilirubin 0.5 mg/dl Aspartate Amino Transf (AST/SGOT) 27 U/L Alanine Aminotransferase (ALT/SGPT) 22 U/L Alkaline Phosphatase 107 U/L Total Protein 6.6 gm/dl Albumin 3.0 gm/dl Lipase 86 U/L Bedside Lactic Acid Venous 1.15 mmol/L Bedside D-Dimer > 450 ng/mlFEU Bedside Troponin I < 0.030 ng/ml BR-Nyi-M-[id number] Natriuretic Peptide 5560 pg/ml Test 09/19/16 18:18 09/19/16 20:37 09/20/16 00:05 09/20/16 05:51 Bedside Glucose 93 mg/dl 88 mg/dl 93 mg/dl Total Creatine Kinase 178 U/L Creatine Kinase MB 3.7 ng/ml Creatine Kinase MB Ratio 2.1 Troponin I 0.019 ng/ml Test 09/20/16 07:13 09/20/16 07:46 Bedside Glucose 139 mg/dl White Blood Count 6.58 K/uL Red Blood Count 4.47 M/uL Hemoglobin 13.1 g/dL Hematocrit 41.1 % Mean Corpuscular Volume 91.9 fL Mean Corpuscular Hemoglobin 29.3 pg Mean Corpuscular Hemoglobin Concent 31.9 g/dl Platelet Count 290 K/uL Mean Platelet Volume 9.0 fL Neutrophils (%) (Auto) 77.6 % Lymphocytes (%) (Auto) 9.7 % Monocytes (%) (Auto) 9.9 % Eosinophils (%) (Auto) 2.3 % Basophils (%) (Auto) 0.3 % Neutrophils # (Auto) 5.11 K/uL Lymphocytes # (Auto) 0.64 K/uL Monocytes # (Auto) 0.65 K/uL Eosinophils # (Auto) 0.15 K/uL Basophils # (Auto) 0.02 K/uL RDW Standard Deviation 53.6 fL RDW Coefficient of Variation 15.9 % Immature Granulocyte % (Auto) 0.2 % Immature Granulocyte # (Auto) 0.01 K/uL Sodium Level 134 mmol/L Potassium Level 3.8 mmol/L Chloride Level 98 mmol/L Carbon Dioxide Level 29 mmol/L Anion Gap 7.0 mmol/L Blood Urea Nitrogen 10 mg/dl Creatinine 0.68 mg/dl Est Creatinine Clear Calc Drug Dose 77.7 ml/min Estimated GFR () 103.4 Estimated GFR (Non- 89.2 BUN/Creatinine Ratio 15.3 Random Glucose 101 mg/dl Calcium Level 8.9 mg/dl Phosphorus Level 3.7 mg/dl Magnesium Level 2.1 mg/dl Total Bilirubin 1.7 mg/dl Aspartate Amino Transf (AST/SGOT) 27 U/L Alanine Aminotransferase (ALT/SGPT) 23 U/L Alkaline Phosphatase 89 U/L Total Creatine Kinase 187 U/L Creatine Kinase MB 4.2 ng/ml Creatine Kinase MB Ratio 2.2 Troponin I < 0.015 ng/ml Total Protein 6.7 gm/dl Albumin 3.0 gm/dl Globulin 3.7 gm/dl Albumin/Globulin Ratio 0.8 Triglycerides Level 108 mg/dl Cholesterol Level 132 mg/dl HDL Cholesterol 56 mg/dl LDL Cholesterol, Calculated 54 mg/dl VLDL Cholesterol, Calculated 22 mg/dl Cholesterol/HDL Ratio 2.4 Assessment & Plan Patient with acute CHF, multiple skin ulcerations of the bilateral lower extremities, and bilateral lower extremity mild cellulitis. Blood cultures are pending. Patient is currently on IV Zosyn and Vancomycin. This is appropriate pending further workup and improvement. Will order wound cultures of right and left lower extremity lesions that are weeping to see if we can isolate an organism/organisms. Feel that she likely will need at least 1-2 more days of IV abx therapy and then PO therapy for at least 7-10 days. We will follow. Case reviewed and agree with above assessment
--- NOTE | 2016-09-20 11:00 | Pharmacy Progress Note ---
Glycemic Control Progress Note Date of Service Sep 20, 2016. Scope Glycemic Pharmacist consulted for glycemic control to write orders per [facility] inpatient glycemic control protocol. Objective Accuchecks BSG (last 24hrs): Test 09/19/16 14:22 09/19/16 14:30 09/19/16 18:18 09/19/16 20:37 Bedside Glucose 112 mg/dl (70-90) 93 mg/dl (70-90) 88 mg/dl (70-90) Random Glucose 109 mg/dl (70-99) Test 09/20/16 05:51 09/20/16 07:13 09/20/16 07:46 Bedside Glucose 93 mg/dl (70-90) 139 mg/dl (70-90) Random Glucose 101 mg/dl (70-99) HbA1c: Test 09/19/16 14:30 Hemoglobin A1c 5.3 % (4.5-5.6) Recent Pertinent Medications The patient is currently receiving: * Basal insulin: Levemir 34 units every 24 hours give at 1630 * Correctional Insulin: Novolog Correction per scale ACHS Goal Range: Low 140 mg/dL - High 180 mg/dL Correction Factor: 35 mg/dL/unit * Prandial insulin: Per carb ratio of 1 unit per 12 grams CHO consumed Outpatient Anti-Diabetic Meds Basal Insulin Assessment & Plan ASSESSMENT: * See progress note from 09/19/16 for more background info, in short: * Pt receiving SQ basal bolus insulin regimen for hyperglycemia secondary to baseline DM , stress/infection, * Pt with excellent outpatient control per recent A1c. Pt may be experiencing hypoglycemia as an outpatient? * Patient is currently receiving an average of 36 units of insulin per day * 34 units of basal insulin * 2 units of prandial/correctional insulin * BSGs ranging 88 - 139 mg/dl over the past 24hrs * Changes needed to insulin regimen: * AM Fasting BSG = 101, 139 mg/dl. This slightly below goal range for patient based on inpatient targets and co-morbidities. Therefore Basal insulin needs decreased * Post-prandial BSGs are in range therefore no changes needed to CF/CR. Pt with tight glycemic control as an outpatient, therefore, lower goal range is warranted. * Total daily dose = 36 units. May need to evenly re-distribute regimen 50%:50 % basal:prandial to prevent hypo/hyperglycemia. Most of regimen is basal insulin but pt with little PO intake since admission. PLAN FOR INPATIENT GLYCEMIC CONTROL: * Basal insulin * Slightly decrease, Levemir 30 units SQ daily at 1630 * Bolus insulin * NovoLog per scale ACHS or Q6hrs while NPO * Goal Range: Low 110 mg/dL - High 140 mg/dL * Correction Factor: 35 mg/dL/unit * Nutritional / Prandial insulin per carb ratio of 1 unit per 12 grams CHO consumed * Please note that the plan above was derived based on current level of insulin resistance and hospital stress. These recommendations are appropriate for inpatient admission only. Plan of care upon discharge will need to be reassessed to avoid potential outpatient hypo/hyperglycemia. Thank you.
--- NOTE | 2016-09-20 11:12 | DIAGNOSTIC IMAGING REPORT ---
CHEST ONE VIEW PORTABLE CLINICAL HISTORY: Congestive failure COMPARISON STUDY: 09/17/2016 FINDINGS: The heart remains mildly enlarged. There are persistent small bilateral pleural effusions. There is no focal pulmonary consolidation. There is no overt failure. There are persistent bibasilar opacities, likely atelectatic[ IMPRESSION: Stable findings. Mild cardiomegaly. Small bilateral pleural effusions. Bibasilar opacities likely atelectatic Electronically signed by: Alexander Fernandez M.D. 09/20/2016 11:10 AM Dictated Date/Time: 09/20/2016 11:09 AM
--- NOTE | 2016-09-20 12:07 | Surgery Consultation ---
Consultation Date of Service Sep 20, 2016. Chief Complaint PAD BLE with ulcers History of Present Illness The patient is a 71 year old female with hx of COPD, HTN, DMII, admitted with SOB and increased cough, seen in consultation today for BLE arterial disease with ulcerations/cellulitis. Pt states these have been present for past few weeks and her son has been taking care of them and dressing them daily, since he is an EMT. She has not sought medical care for these, is not seeing wound care. States she had a "lump" in left proximal thigh about 2 weeks ago and a few days later developed ecchymosis of left thigh/leg. No known injury per pt. No hx of arterial disease in past. Denies claudication or rest pain, however , states she has only been walking "a few steps" for past 2-3 weeks and is unable to give a reason why. Denies pain at this time, KING, fever, chills, chest pain, SOB presently, abd pain, N/V, other complaints. Pt smokes 1 PPD and has multiple pets at home. Vitals Vital Signs Past 12 Hours Date Time Temp Pulse Resp B/P (MAP) Pulse Ox O2 Delivery O2 Flow Rate FiO2 09/20/16 11:05 80 18 94 Room Air 09/20/16 08:56 91 18 94 Room Air 09/20/16 08:00 94 Room Air 09/20/16 07:25 36.4 81 18 135/75 (95) 94 Room Air 09/20/16 04:25 37.1 77 18 120/69 (86) 95 Room Air 09/20/16 04:00 Room Air 09/20/16 00:00 Room Air Allergies Coded Allergies: No Known Allergies (Unverified , 09/19/16) Home Medications Scheduled Atenolol (Tenormin), 50 MG PO QAM Atorvastatin (Lipitor), 40 MG PO DAILY Fluticasone Furoate-Vilanterol (Breo Ellipta 200-25 Mcg/INH), 2 PUFF INH BID Insulin Detemir (Levemir), 46 UNITS SC DAILY Lisinopril/Hctz (Zestoretic 20MG/25MG), 1 TAB PO DAILY Scheduled PRN Albuterol Hfa (Ventolin Hfa), 2-4 PUFFS INH Q6H PRN for Shortness of Breath Problem List Medical Problems: (1) COPD (chronic obstructive pulmonary disease) (2) Diabetes (3) Emphysema lung (4) Shortness of breath Surgical / Medical History Hx Cardiac Surgery: No Hx Abdominal Surgery: No Hx Cancer Surgery: No Hx Thoracic Surgery: No Hx Orthopedic: No Hx Urinary Tract Surgery: No HX Other Surgery: No Past Medical/Surgical History: COPD, Diabetes, Heart Disease, High Cholesterol , Hypertension Family History + HTN, diabetes Social History Smoking Status: Current Every Day Smoker Hx Tobacco Use In Past Year?: Yes Hx Alcohol Use - Type & Amnt: No Hx Substance Use -Type & Amnt: No Review of Systems Constitutional: + malaise, No chills, No fever Skin: + change in color Eyes: No visual changes ENMT: No sore throat Respiratory: + cough, + GUILLEN, + orthopnea, + short of breath, No hemoptysis Cardiovascular: + edema, No chest pain, No chest pressure, No palpitations, No syncope, No intermittent claudication Gastrointestinal: No abdominal pain, No nausea, No vomiting Genitourinary - Female: No dysuria, No hematuria Neurologic: No dizziness, No headache, No numbness, No tingling Physical Exam Constitutional: General Apperance: well-nourished, well-developed, obese Level of Distress: NAD, chronically ill Psychiatric: Mental Status: active & alert, normal mood, normal affect Orientation: oriented except where noted, to time, to place, to person Memory: recent memory normal (vague), remote memory normal Head: normocephalic, atraumatic Eyes: EOM: EOMI ENMT: normal ENT inspection, hearing grossly normal Neck: supple, trachea midline Lungs: Respiratory effort: no dyspnea Auscultation: no rhonchi, decreased breath sounds, expiratory wheezing Cardiovascular: Apical Impulse: not displaced Heart Auscultation: RRR, no rubs, no gallops Peripheral Pulses: Pulses: full and equal, in all extremities except if noted Bruits: none appreciated Carotid Pulse: normal on the left, normal on the right Brachial Pulses: normal on the left, normal on the right Femoral Pulse: decreased on the left, decreased on the right Posterior Tibialis Pulse: pertinent finding (nonpalpable BLE) Dorsalis Pedis Pulse: pertinent finding (Nonpalpable BLE) Abdomen: Bowel Sounds: normal Inspection & Palpation: soft, non-distended, no tenderness, guarding & rebound Musculoskeletal: normal strength (5/5 throughout), normal tone Extremities: Upper Right: no cyanosis, no edema, no varicosities Upper Left: no cyanosis, no edema, no varicosities Lower Right: ulcers, pertinent finding (Mottling and cool toes, delayed cap refill 6 sec. +2 edema to knee. multiple shallow ulcerations with clear drainage, some with animal hair in them. + local cellulitis to all ulcerations. ) Lower Left: ulcers, mottling, pertinent finding (toes cool, delayed cap refill at 6 sec, 2nd toe with dried drainage covered in animal hair. Malodorous , soiled feet. L knee and leg with punctate lesions covered with eschar and periwound erythema. +3 pitting edema from thigh to ankle, old ecchymosis from thigh to lower leg. No hematoma noted ) Neurologic: Cranial Nerves: grossly intact Sensation: grossly intact Assessment and Plan ASSESSMENT and PLAN: Significant PAD Ulcerations/cellulitis BLE Pt with clinical appearance of PAD, although denying sx at this time. Infected lesions/ulcers to be addressed by wound care, abx per medicine/ID. Will review US results before making further recommendations. Pt states she will not have ANY surgery. Will discuss options further after US.
--- NOTE | 2016-09-20 14:00 | ECHOCARDIOGRAM REPORT ---
*NOTICE TO RECEIVING [employer] This information is strictly Confidential and protected under [place] law. [place] law prohibits you from making any further disclosure of this information unless further disclosure is expressly permitted by the written consent of the person to whom it pertains or is authorized by law. A general authorization for the release of medical or other information is not sufficient for this purpose. Hospital accepts no responsibility if the information is made available to any other person, INCLUDING THE PATIENT. Interpretation Summary * Name: CONTRERAS ODEN Study Date: 09/20/2016 06:40 AM BP: 120/69 mmHg * Patient Location: [facility]\S\N280\S\1 HR: 77 * : 1945 (M/d/yyyy) Gender: Female Height: 63 in * Age: 71 yrs Ethnicity: DC * Ordering Physician: Humberto Graham * Referring Physician: Nya Rodarte * Performed By: Jelly Gonzales RDCS * * Reason For Study: CHF * -- Conclusions -- * Left ventricular systolic function is severely reduced. * Grade I diastolic dysfunction, (abnormal relaxation pattern). * The right ventricular systolic function is normal as assessed by tricuspid annular plane systolic excursion (TAPSE) (normal >1.5 cm). Procedure Details * A complete two-dimensional transthoracic echocardiogram was performed (2D, M-mode, Doppler and color flow Doppler). * A contrast injection of Definity was performed to improve assessment of LV function. * Contrast was injected into an intravenous site in the left arm. * One vial of Definity ultrasound contrast was diluted in normal saline to a total volume of 10 ml. A total of '2' ml of solution was administered during imaging. * Lot # [id number] of Definity utilized for procedure. * Expiration date 1 OCT 15. * The attending nurse who injected the contrast agent was Nilsa Antonio RN. Left Ventricle * The left ventricle is normal in size. * There is normal left ventricular wall thickness. * Ejection Fraction = 30-35%. * Left ventricular systolic function is severely reduced. * Grade I diastolic dysfunction, (abnormal relaxation pattern). * There is moderate to severe global hypokinesis of the left ventricle. Right Ventricle * The right ventricle is not well visualized. * The right ventricular systolic function is normal as assessed by tricuspid annular plane systolic excursion (TAPSE) (normal >1.5 cm). Atria * The left atrial size is normal. * Right atrium not well visualized. Mitral Valve * The mitral valve leaflets appear thickened, but open well. * There is no mitral valve stenosis. * Significant mitral regurgitation is absent. Tricuspid Valve * The tricuspid valve is not well visualized. * There is mild tricuspid regurgitation. * Right ventricular systolic pressure is elevated at 30-40mmHg. Aortic Valve * The aortic valve is not well visualized. * No hemodynamically significant valvular aortic stenosis. * There is no significant aortic regurgitation. Pericardium/Pleural * There is no pericardial effusion. MMode 2D Measurements and Calculations IVSd 1.3 cm LVIDd 4.4 cm LVIDs 3.8 cm LVPWd 1.1 cm IVS/LVPW 1.2 FS 13.8 % EDV(Teich) 86.7 ml ESV(Teich) 61.0 ml EF(Teich) 29.6 % EDV(cubed) 84.0 ml ESV(cubed) 53.8 ml EF(cubed) 35.9 % LV mass(C)d 197.4 grams SV(Teich) 25.7 ml SV(cubed) 30.2 ml ACS 2.0 cm asc Aorta Diam 3.2 cm LVAd ap4 40.3 cm\S\2 LVLd ap4 9.2 cm EDV(MOD-sp4) 139.5 ml EDV(sp4-el) 149.3 ml LVAs ap4 32.3 cm\S\2 LVLs ap4 8.4 cm ESV(MOD-sp4) 100.7 ml ESV(sp4-el) 105.6 ml EF(MOD-sp4) 27.8 % EF(sp4-el) 29.3 % LVAd ap2 38.3 cm\S\2 LVLd ap2 9.5 cm EDV(MOD-sp2) 122.5 ml EDV(sp2-el) 131.6 ml LVAs ap2 29.8 cm\S\2 LVLs ap2 8.6 cm ESV(MOD-sp2) 81.3 ml ESV(sp2-el) 87.5 ml EF(MOD-sp2) 33.6 % EF(sp2-el) 33.5 % LVLd %diff 2.6 % EDV(MOD-bp) 134.1 ml LVLs %diff 2.6 % ESV(MOD-bp) 92.2 ml EF(MOD-bp) 31.2 % SV(MOD-sp4) 38.8 ml SV(MOD-sp2) 41.2 ml SV(MOD-bp) 41.9 ml SV(sp4-el) 43.7 ml SV(sp2-el) 44.1 ml Doppler Measurements and Calculations MV E max alysa 102.3 cm/sec MV A max alysa 107.7 cm/sec MV E/A 0.95 MV dec time 0.19 sec Ao V2 max 95.0 cm/sec Ao max PG 3.6 mmHg Ao max PG (full) 1.2 mmHg LV V1 max PG 2.4 mmHg LV V1 max 78.1 cm/sec PA V2 max 70.6 cm/sec PA max PG 2.0 mmHg PA acc slope 316.8 cm/sec\S\2 PA acc time 0.11 sec TR max alysa 258.1 cm/sec PA pr(Accel) 31.5 mmHg
--- NOTE | 2016-09-20 14:26 | DIAGNOSTIC IMAGING REPORT ---
BILATERAL LOWER EXTREMITY ARTERIAL DOPPLER STUDY HISTORY: Leg pain. Evidence of significant peripheral vascular disease COMPARISON STUDY: None. FINDINGS: The right ankle-brachial index measured with the posterior to right leg was 1.1 mm and the dorsalis pedis artery is 1.0. The left ankle-brachial index measured with the posterior tibial artery was 0.84 and the dorsalis pedis artery was 0.93. There are triphasic to biphasic waveforms seen throughout the entire right lower extremity arterial system. Elevated peak systolic velocities within the right superficial femoral artery of 252 cm/s and the dorsalis pedis artery of 306 cm/s. However, these areas do not appear to be significantly stenosed on the images. Biphasic normal velocity waveforms seen within the left common femoral artery. There is focal area of elevated velocities within the distal left superficial femoral artery of 260 cm/s. Biphasic waveforms with slightly diminished velocities within the left popliteal artery. Monophasic waveforms with normal to low velocities within the left anterior tibial, posterior tibial, peroneal and dorsalis pedis arteries. IMPRESSION: 1. Monophasic normal to low velocities within the left calf/foot arteries consistent with diffuse atherosclerotic disease. 2. Suggestion of a focal area of mild stenosis within the distal left superficial femoral artery. 3. Elevated velocities within the proximal right superficial femoral artery and right dorsalis pedis artery. This may be artifact. The provided images do not suggest significant stenosis. Electronically signed by: Alvarado Moyer M.D. 09/20/2016 2:25 PM Dictated Date/Time: 09/20/2016 2:17 PM
[2016-09-20] MEDS ORDERED: INSULIN DETEMIR FLEXPEN/FLEX TOUCH 100 UNITS/ML 3ML SC SCH ×3 (16:30)
--- NOTE | 2016-09-20 17:53 | CARDIOLOGY CONSULTATION ---
DATE OF CONSULTATION: 09/20/2016 REFERRING PHYSICIAN: Dr. Tamara Chakraborty. CHIEF COMPLAINT: Dyspnea. HISTORY OF PRESENT ILLNESS: Mrs. Jalyn Giles is a 71-year-old woman without a known history of cardiac disease who has been experiencing progressive symptoms of lower extremity edema and shortness of breath for several months. It seems these symptoms themselves have accelerated over the past 2 weeks. These symptoms involve the development of significant lower extremity swelling as well as ulcers and sores on her legs bilaterally. The patient has also been progressively more short of breath to the point where even with conversation, she has dyspnea. She has been sleeping in a recliner for several months due to an inability to lay flat. With lying flat, she has significant dyspnea. She denied over dizziness or lightheadedness. She has not had any symptoms of chest discomfort. She has not been aware of any palpitations. Her diet generally consists of Sinhala fries and hotdogs. Interestingly, she stopped her medications several months ago over concerns of these medicines interacting with her nebulizers and inhaled medications. Since yesterday, the patient states that her symptoms have improved. She states that the breathing is much better and she has noticed a significant improvement in her lower extremities as well. She has not reported symptoms of fevers or chills. She has been coughing and has a cough productive of some discolored sputum. She reports having had an element of anorexia until today where her appetite improved significantly. PAST MEDICAL HISTORY: Significant for: 1. COPD. 2. 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 3. Hyperlipidemia. 4. Hypertension. SOCIAL HISTORY: The patient currently lives with her son. She is a current smoker. She denies any alcohol use. FAMILY HISTORY: The patient is adopted. OUTPATIENT MEDICATIONS: 1. Aspirin. 2. Atenolol. 3. Atorvastatin. 4. Insulin. 5. Lisinopril/hydrochlorothiazide. It should be noted that the patient has not been taking her medications for several months. MEDICAL ALLERGIES: No known medical allergies. REVIEW OF SYSTEMS: A complete review of systems was performed and the pertinent positives noted in the history of present illness and the remainder being negative. PHYSICAL EXAMINATION: GENERAL: The patient does not appear in acute distress. She is a pleasant individual who is alert and oriented. Mood and affect appeared normal. She answered all questions appropriately. VITAL SIGNS: Currently included a blood pressure of 157/81 with pulse of 82. HEENT: Sclerae are anicteric. Pupils are equal, reactive to light and accommodation. Extraocular movements were intact. NECK: Palpation of submandibular region did not reveal any significant lymphadenopathy. Carotids are palpable bilaterally. I do not appreciate any bruits on auscultation. There is no evidence of thyromegaly. NEUROLOGIC: Evaluation revealed cranial nerves to be intact. Oral evaluation revealed poor dentition overall. LUNGS: Auscultation of both lungs revealed distant breath sounds with poor excursion. There were crackles at the bases bilaterally. There is no expiratory wheezing. CARDIAC: Revealed her to be in a regular rhythm. I did not appreciate any murmurs on examination. PMI was not markedly displaced on palpation. She did appear to be markedly kyphotic with a barrel chest. ABDOMEN: Distended but no tenderness was appreciated. EXTREMITIES: Evaluation of both wrists revealed radial pulses that were equal in intensity. I do not appreciate any cyanosis or clubbing, although she did have discoloration of her nails, presumably due to tobacco use. Evaluation of her lower extremities revealed tense edema to the hip. There was some erythema in the tibial areas and multiple ulcers on both legs. LABORATORY STUDIES: Obtained today included a sodium 134, potassium of 3.8, BUN was 10, and creatinine was 0.68. Cardiac troponins were less than detectable limit. N-terminal ProBNP was greater than 5000. White cell count was 6.5, hemoglobin was 13.1 and platelet count was 290. IMAGING DATA: The patient did have a CT scan as well as a chest x-ray obtained since admission. There is no evidence of pulmonary embolus. The patient did have bilateral small pleural effusions. There was evidence of cardiomegaly. Venous duplex of the legs did not demonstrate any thrombus. Echocardiogram was performed today which revealed reduced LV systolic function without significant valvular heart disease. ASSESSMENT AND PLAN: 1. Acute on chronic decompensated left ventricular failure: The patient has a long history of progressive pulmonary and peripheral congestion. I believe this is likely secondary to her poor left ventricular systolic function. Her dyspnea and orthopnea certainly consistent with pulmonary vascular congestion. Objective findings would include her elevated N-terminal ProBNP. She has had some improvement with diuresis over the course of the past 24 hours. The patient had previously been on a beta mago and RADHA inhibitor, but stopped these several months ago. At this point, it would seem reasonable to reinstitute her standard heart failure regimen to include lisinopril and Toprol-XL. I think the patient would benefit from continued diuresis. If she has responded well to a daily dose of Lasix, this can be continued until she is obviously euvolemic. The etiology of her heart failure is unclear. She certainly has multiple risk factors for coronary artery disease. She did not, however, report symptoms of chest discomfort leading up to these events and she has no regional wall motion abnormalities on her echocardiogram. It is very possible that this represents a nonischemic etiology. She did not endorse a history of alcohol abuse. I doubt if she has a significant sleep apnea. I will check her thyroid studies in the morning. Certainly, there is the possibility of infiltrative process but this is less likely. I think once the patient is euvolemic, we will obtain an ischemic evaluation likely with perfusion imaging. At this point, I think continued diuresis and institution of medical therapy is the best approach followed by outpatient evaluation.
[2016-09-21] VITALS (9 sets, daily range): BP systolic 122–153; BP diastolic 68–85; PULSE 86–92; TEMP 36.7–36.8; O2SAT 96–98
--- NOTE | 2016-09-21 | Hospitalist Progress Note ---
Hospitalist Progress Note Date of Service Sep 20, 2016. Subjective Pt evaluation today including: conversation w/ patient, conversation w/ family , conversation w/ party plan sales consultant (Cardiology), review of inpatient medication list Pt feeling markedly improved since admission. Much less SOB, can lie flat for the first time in 2 months, legs half the size they were yesterday. Constitutional: No fever Abdomen: No pain All Other Systems: Reviewed and Negative Objective Vital Signs Date Time Temp Pulse Resp B/P (MAP) Pulse Ox O2 Delivery O2 Flow Rate FiO2 09/20/16 20:00 Room Air 09/20/16 19:38 36.7 89 16 138/80 (99) 94 Room Air 09/20/16 19:02 84 16 91 Room Air 09/20/16 16:05 36.8 87 18 124/71 (88) 97 Room Air 09/20/16 16:00 Room Air 09/20/16 12:00 95 Room Air 09/20/16 11:53 36.7 82 18 157/81 (106) 95 Room Air 09/20/16 11:05 80 18 94 Room Air 09/20/16 08:56 91 18 94 Room Air 09/20/16 08:00 94 Room Air 09/20/16 07:25 36.4 81 18 135/75 (95) 94 Room Air 09/20/16 04:25 37.1 77 18 120/69 (86) 95 Room Air 09/20/16 04:00 Room Air 09/20/16 00:00 Room Air 09/19/16 23:42 36.9 82 20 122/66 (84) 95 Room Air Physical Exam General Appearance: no apparent distress, + pertinent finding (smells very strongly of cigarette smoke, is unkempt) Eyes: normal inspection, sclerae normal ENT: hearing grossly normal Neck: trachea midline Respiratory/Chest: no respiratory distress, no accessory muscle use, + crackles (at bases bilat, diminished BS throughout) Cardiovascular: regular rate, rhythm, + pertinent finding (2+ pitting edema all the way from legs to abdomen) Abdomen: normal bowel sounds, non tender, soft ( and obese) Extremities: + swelling (edema as noted baove) Neurologic/Psychiatric: alert, normal mood/affect, oriented x 3 Skin: + rash (multiple superficial open sores on legs and a few on arms and hands with surrounding erythema, no active drainage) Laboratory Results Last 24 Hours Test 09/20/16 00:05 09/20/16 04:50 09/20/16 05:19 09/20/16 05:51 Total Creatine Kinase 178 U/L Creatine Kinase MB 3.7 ng/ml Creatine Kinase MB Ratio 2.1 Troponin I 0.019 ng/ml Bedside Glucose 37 mg/dl 67 mg/dl 93 mg/dl Test 09/20/16 07:13 09/20/16 07:46 09/20/16 11:30 09/20/16 16:41 Bedside Glucose 139 mg/dl 100 mg/dl 133 mg/dl White Blood Count 6.58 K/uL Red Blood Count 4.47 M/uL Hemoglobin 13.1 g/dL Hematocrit 41.1 % Mean Corpuscular Volume 91.9 fL Mean Corpuscular Hemoglobin 29.3 pg Mean Corpuscular Hemoglobin Concent 31.9 g/dl Platelet Count 290 K/uL Mean Platelet Volume 9.0 fL Neutrophils (%) (Auto) 77.6 % Lymphocytes (%) (Auto) 9.7 % Monocytes (%) (Auto) 9.9 % Eosinophils (%) (Auto) 2.3 % Basophils (%) (Auto) 0.3 % Neutrophils # (Auto) 5.11 K/uL Lymphocytes # (Auto) 0.64 K/uL Monocytes # (Auto) 0.65 K/uL Eosinophils # (Auto) 0.15 K/uL Basophils # (Auto) 0.02 K/uL RDW Standard Deviation 53.6 fL RDW Coefficient of Variation 15.9 % Immature Granulocyte % (Auto) 0.2 % Immature Granulocyte # (Auto) 0.01 K/uL Sodium Level 134 mmol/L Potassium Level 3.8 mmol/L Chloride Level 98 mmol/L Carbon Dioxide Level 29 mmol/L Anion Gap 7.0 mmol/L Blood Urea Nitrogen 10 mg/dl Creatinine 0.68 mg/dl Est Creatinine Clear Calc Drug Dose 77.7 ml/min Estimated GFR () 103.4 Estimated GFR (Non- 89.2 BUN/Creatinine Ratio 15.3 Random Glucose 101 mg/dl Calcium Level 8.9 mg/dl Phosphorus Level 3.7 mg/dl Magnesium Level 2.1 mg/dl Total Bilirubin 1.7 mg/dl Aspartate Amino Transf (AST/SGOT) 27 U/L Alanine Aminotransferase (ALT/SGPT) 23 U/L Alkaline Phosphatase 89 U/L Total Creatine Kinase 187 U/L Creatine Kinase MB 4.2 ng/ml Creatine Kinase MB Ratio 2.2 Troponin I < 0.015 ng/ml Total Protein 6.7 gm/dl Albumin 3.0 gm/dl Globulin 3.7 gm/dl Albumin/Globulin Ratio 0.8 Triglycerides Level 108 mg/dl Cholesterol Level 132 mg/dl HDL Cholesterol 56 mg/dl LDL Cholesterol, Calculated 54 mg/dl VLDL Cholesterol, Calculated 22 mg/dl Cholesterol/HDL Ratio 2.4 Test 09/20/16 20:03 09/20/16 22:12 Bedside Glucose 128 mg/dl 201 mg/dl Assessment and Plan This pt is a 71 yo female with a PMHx of Diabetes mellitus II (on insulin), HTN , HLD, COPD, current smoker, who presents with 1-2 weeks of progressively worsening SOB, significant dyspnea on exertion, and leg swelling with development of multiple open sores on legs--> anasarca. She is admitted with new onset acute systolic CHF and LE cellulitis BNP >5000. D-Dimer is elevated. CT chest and chest X-ray showed pleural effusions and cardiomegaly. CTA Chest neg for PE Acute systolic and diastolic CHF- ECHO with EF 30-35%, Grade 1 diastolic dysfunction. 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 -tele monitoring for arrhythmias -eventually will need ischemic evaluation as outpatient -start lisinopril and metoprolol -appreciate Cardiology consult -diurese with lasix IV -replace lytes as needed -continue statin - started Aspirin 81mg daily. - Monitor Is and Os, daily weights Leg wounds secondary to PAD, venous insufficiency, LE edema, with cellulitis. - arterial Doppler with focal stenosis left SFA. Bilateral venous Doppler negative for DVT. No sepsis on admission - continue Zosyn and Vanc and eventually switch to po abx -follow wound cultures -appreciate ID consult - wound care consult appreciated -Appreciate Vascular consult-will see if recommend intervention -continue IV diuresis DM2 - HBA1C 5.3%-very well controlled - Glycemic control consult placed on admission -continue Lantus COPD-stable - c/w Breo Ellipta + Albuterol PRN for wheezing. Smoking - cessation counseling given - Consider nicotine patches. HTN - c/w Lisinopril 25mg daily / HCTZ 20mg daily Spinal compression fractures, Osteoporosis-asymptomatic, seen on chest CT -check Vit D level Dispo: tele currently DVT Proph: Hep SQ TID Code: Full
[2016-09-21] MEDS: HEPARIN SOD 5000 UNIT/0.5 ML CARP SQ SCH ×3 (05:43→21:59)
[2016-09-21 05:44] LABS: HEMATOCRIT 39.8 % (37-47); MEAN CELL VOLUME 91.3 fL (80-100); MEAN CORPUSCULAR HEMOGLOBIN 29.8 pg (25-34); MEAN CORPUSCULAR HGB CONC 32.7 g/dl (32-36); MEAN PLATELET VOLUME 8.8 fL (7.4-10.4); PLATELET COUNT 283 K/uL (130-400); RED BLOOD COUNT 4.36 M/uL (4.2-5.4); WHITE BLOOD COUNT 6.21 K/uL (4.8-10.8)
[2016-09-21] MEDS: PIPERACILL/TAZOBAC IV 3.375 GM in DEXTROSE 5% 100ML 100 ML IV SCH ×3 (05:45→21:54)
[2016-09-21 06:11] LABS: BUN/CREATININE RATIO 22.3 (10-20); CREATININE 0.68 mg/dl (0.60-1.20); MAGNESIUM 1.9 mg/dl (1.8-2.4); POTASSIUM 3.9 mmol/L (3.5-5.1)
[2016-09-21 06:22] LABS: THYROID STIMULATING HORMONE 1.08 uIu/ml (0.300-4.500)
[2016-09-21] MEDS: ALBUT/IPRATROP 3MG/0.5MG NEB 3 ML VIAL INH SCH ×2 (07:04→11:49)
[2016-09-21] MEDS: ATORVASTATIN 40 MG TAB PO SCH (08:06)
[2016-09-21] MEDS: ASPIRIN 81 MG ECTAB PO SCH (08:06)
[2016-09-21] MEDS: LISINOPRIL 20 MG TAB PO SCH (08:07)
[2016-09-21] MEDS: METOPROLOL SUCC 25MG EXT REL TAB PO SCH (08:07)
[2016-09-21] MEDS: FLUTICASONE FUROATE-VILANTEROL 200/25 MCG INH INH SCH ×2 (08:08→21:00)
[2016-09-21] MEDS: FUROSEMIDE INJ 20 MG in SYRINGE 0 ML IV SCH ×3 (08:08→17:49)
[2016-09-21] MEDS: NICOTINE 14 MG/24 HR TDSY TD SCH (08:08)
[2016-09-21] MEDS: INSULIN ASPART 100 UNITS/ML 3 ML PEN SC SCH ×4 (08:35→21:00)
[2016-09-21] MEDS ORDERED: MAGNESIUM SULFATE 1GM / D5W 1 GM in PREMIXED IN D5W 100 ML IV SCH (09:00)
[2016-09-21] MEDS ORDERED: NURSING VERBAL MED ORDER STA (09:14)
[2016-09-21] MEDS ORDERED: VANCOMYCIN TROUGH SCH (09:30)
[2016-09-21] MEDS: COLLAGENASE OINT 30 GM TUBE EXT SCH ×2 (09:41→21:43)
[2016-09-21] MEDS: POTASSIUM CHLORIDE 10 MEQ TABCR PO SCH (09:41)
[2016-09-21] MEDS ORDERED: NURSING VERBAL MED ORDER ONE (10:00)
--- NOTE | 2016-09-21 10:52 | Pharmacy Progress Note ---
Glycemic Control Progress Note Date of Service Sep 21, 2016. Scope Glycemic Pharmacist consulted for glycemic control to write orders per [facility] inpatient glycemic control protocol. Objective Accuchecks BSG (last 24hrs): Test 09/20/16 11:30 09/20/16 16:41 09/20/16 20:03 09/20/16 22:12 Bedside Glucose 100 mg/dl (70-90) 133 mg/dl (70-90) 128 mg/dl (70-90) 201 mg/dl (70-90) Test 09/21/16 05:10 09/21/16 07:24 Random Glucose 76 mg/dl (70-99) Bedside Glucose 78 mg/dl (70-90) HbA1c: Test 09/19/16 14:30 Hemoglobin A1c 5.3 % (4.5-5.6) Recent Pertinent Medications The patient is currently receiving: * Basal insulin: Levemir 30 units every 24 hours give at 1630 * Correctional Insulin: Novolog Correction per scale ACHS Goal Range: Low 110 mg/dL - High 140 mg/dL Correction Factor: 35 mg/dL/unit * Prandial insulin: Per carb ratio of 1 unit per 12 grams CHO consumed Outpatient Anti-Diabetic Meds Basal Insulin --> is likely covering some prandial needs though Assessment & Plan ASSESSMENT: * See progress note from 09/19/16 for more background info, in short: * Pt receiving SQ basal bolus insulin regimen for hyperglycemia secondary to baseline DM , stress/infection, * Pt with excellent outpatient control per recent A1c. Pt may be experiencing hypoglycemia as an outpatient? * Patient is currently receiving an average of 40 units of insulin per day * 30 units of basal insulin * 10 units of prandial/correctional insulin * BSGs ranging 78 - 139 mg/dl over the past 24hrs * Changes needed to insulin regimen: * AM Fasting BSG = 78 mg/dl. This slightly below goal range for patient based on inpatient targets and co-morbidities. Therefore Basal insulin needs decreased * Post-prandial BSGs are in range therefore no changes needed to CF/CR. Pt with tight glycemic control as an outpatient, therefore, lower goal range is warranted. * Total daily dose = 40 units. Working to re-distribute regimen 50%:50% basal: prandial to prevent hypo/hyperglycemia. Most of regimen is basal insulin but pt with little PO intake since admission. PLAN FOR INPATIENT GLYCEMIC CONTROL: * Basal insulin * Slightly decrease, Levemir 27 units SQ daily at 1630 * Bolus insulin * No change, continue: * NovoLog per scale ACHS or Q6hrs while NPO * Goal Range: Low 110 mg/dL - High 140 mg/dL * Correction Factor: 35 mg/dL/unit * Nutritional / Prandial insulin per carb ratio of 1 unit per 12 grams CHO consumed * Please note that the plan above was derived based on current level of insulin resistance and hospital stress. These recommendations are appropriate for inpatient admission only. Plan of care upon discharge will need to be reassessed to avoid potential outpatient hypo/hyperglycemia. Thank you.
[2016-09-21] MEDS: VANCOMYCIN INJ 1,000 MG in SODIUM CHLORIDE 0.9% 250ML 250 ML IV SCH (11:07)
[2016-09-21] MEDS ORDERED: ALBUT/IPRATROP 3MG/0.5MG NEB 3 ML VIAL INH PRN (12:15)
--- NOTE | 2016-09-21 13:15 | Pharmacy Progress Note ---
Pharmacy Abx Dose Progress Nt Date of Service Sep 21, 2016. Pharmacy Dosing Scope The patient is currently receiving the following antimicrobial agents per Pharmacy consult: Vancomycin 1000 mg (~15mg/kg) IV/PO every 12 hours for cellulitis Objective Height (Feet): 5 Height (Inches): 3.00 Weight (Kilograms): 75.300 Vital Signs (Past 12Hrs) Vital Signs Past 12 Hours Date Time Temp Pulse Resp B/P (MAP) Pulse Ox O2 Delivery O2 Flow Rate FiO2 09/21/16 13:04 36.7 88 18 127/68 (87) 97 Room Air 09/21/16 12:10 Room Air 09/21/16 11:49 92 16 96 Room Air 09/21/16 08:20 Room Air 09/21/16 07:58 36.7 86 20 153/85 (107) 98 Room Air 09/21/16 07:04 86 16 96 Room Air 09/21/16 05:03 36.7 91 20 148/78 (101) 97 Room Air 09/21/16 04:00 Room Air Lab Results (24Hrs) Laboratory Tests (24 Hours) Test 09/21/16 05:10 White Blood Count 6.21 K/uL (4.8-10.8) Micro Results Date/Time Source Procedure Growth Status 09/19/16 14:35 Blood Blood Culture - Preliminary NO GROWTH TO DATE. Resulted 09/19/16 14:30 Blood Blood Culture - Preliminary NO GROWTH TO DATE. Resulted 09/20/16 11:15 Ulcer Leg Right Lower Gram Stain - Final Resulted 09/20/16 11:15 Wound Culture - Preliminary Staphylococcus Aureus Resulted 09/20/16 11:15 Ulcer Leg Lower Left Gram Stain - Final Resulted 09/20/16 11:15 Wound Culture - Preliminary Staphylococcus Aureus Resulted Risk Factors for Resistance * Diabetes Type II * Current smoker * COPD Assessment & Plan Assessment 71 year old female receiving Vancomycin for treatment of cellulitis Day # 3 of antimicrobial therapy Plan Vancomycin IV * Trough level of 18 mcg/mL is supratherapeutic. * Change to 900 mg (~12mg/kg) IV every 12 hours * Trough level slightly supratherapeutic prior to serum concentrations reaching steady state; therefore, Vancomycin dose was decreased by 10% in order to decrease serum concentrations to therapeutic levels and prevent Vancomycin accumulation and toxicity. * Goal trough level for cellulitis : ~15 mcg/mL * Trough or random level ordered for: 09/22/16 ~30 minutes before the 2200 dose Pharmacy will continue to follow and will adjust dose/frequency as necessary. Thank you.
[2016-09-21] MEDS: ACETAMINOPHEN 325 MG TAB PO PRN (16:19)
[2016-09-21] MEDS: IPRATROPIUM BROMIDE/ALBUTEROL respimat INH INH SCH ×3 (16:20→21:43)
[2016-09-21] MEDS ORDERED: INSULIN DETEMIR FLEXPEN/FLEX TOUCH 100 UNITS/ML 3ML SC SCH (16:30)
[2016-09-21] MEDS ORDERED: CHOLECALCIFEROL 1000 INTER.UNIT TAB PO ONE (16:51)
--- NOTE | 2016-09-21 17:02 | Hospitalist Progress Note ---
Hospitalist Progress Note Date of Service Sep 21, 2016. Subjective Pt evaluation today including: conversation w/ patient, conversation w/ family Pt very anxious to go home but is willing to stay one more day. She feels much improved, no CP or SOB, leg swelling improved. application security specialist requested Santyl as there are some wounds that have animal hair in them that she can't get out. Pt not motivated to quit smoking, but daughter that lives with her is going to quit and encourage mom to do so as well. ENT: + problem reported (headache and neck pain from the soft pillow, now going away with Tylenol) All Other Systems: Reviewed and Negative Objective Vital Signs Date Time Temp Pulse Resp B/P (MAP) Pulse Ox O2 Delivery O2 Flow Rate FiO2 09/21/16 13:04 36.7 88 18 127/68 (87) 97 Room Air 09/21/16 12:10 Room Air 09/21/16 11:49 92 16 96 Room Air 09/21/16 08:20 Room Air 09/21/16 07:58 36.7 86 20 153/85 (107) 98 Room Air 09/21/16 07:04 86 16 96 Room Air 09/21/16 05:03 36.7 91 20 148/78 (101) 97 Room Air 09/21/16 04:00 Room Air 09/21/16 00:00 Room Air 09/20/16 23:43 36.5 88 18 124/78 (93) 96 Room Air 09/20/16 20:00 Room Air 09/20/16 19:38 36.7 89 16 138/80 (99) 94 Room Air 09/20/16 19:02 84 16 91 Room Air Physical Exam General Appearance: no apparent distress, + pertinent finding (unkempt) Eyes: normal inspection, sclerae normal ENT: hearing grossly normal, + pertinent finding (poor dentition) Neck: trachea midline Respiratory/Chest: no respiratory distress, no accessory muscle use, + decreased breath sounds (significantly throughout, no wheeze) Cardiovascular: regular rate, rhythm, no murmur, + pertinent finding (1-2+ pitting edema bilat LEs to thighs) Abdomen: normal bowel sounds, non tender, soft Extremities: no calf tenderness Neurologic/Psychiatric: alert, normal mood/affect Skin: + rash (multiple superficial wounds on legs, some weeping clear fluid, with minimal surrounding erythema) Laboratory Results Last 24 Hours Test 09/20/16 20:03 09/20/16 22:12 09/21/16 05:10 09/21/16 07:24 Bedside Glucose 128 mg/dl 201 mg/dl 78 mg/dl White Blood Count 6.21 K/uL Red Blood Count 4.36 M/uL Hemoglobin 13.0 g/dL Hematocrit 39.8 % Mean Corpuscular Volume 91.3 fL Mean Corpuscular Hemoglobin 29.8 pg Mean Corpuscular Hemoglobin Concent 32.7 g/dl RDW Standard Deviation 52.4 fL RDW Coefficient of Variation 15.7 % Platelet Count 283 K/uL Mean Platelet Volume 8.8 fL Sodium Level 136 mmol/L Potassium Level 3.9 mmol/L Chloride Level 100 mmol/L Carbon Dioxide Level 31 mmol/L Anion Gap 5.0 mmol/L Blood Urea Nitrogen 15 mg/dl Creatinine 0.68 mg/dl Est Creatinine Clear Calc Drug Dose 77.7 ml/min Estimated GFR () 103.4 Estimated GFR (Non- 89.2 BUN/Creatinine Ratio 22.3 Random Glucose 76 mg/dl Calcium Level 9.0 mg/dl Magnesium Level 1.9 mg/dl 25-Hydroxy Vitamin D Total 8.3 ng/ml Thyroid Stimulating Hormone (TSH) 1.080 uIu/ml Test 09/21/16 09:41 09/21/16 11:21 Vancomycin Level Trough 18.0 mcg/ml Bedside Glucose 114 mg/dl Assessment and Plan This pt is a 71 yo female with a PMHx of Diabetes mellitus II (on insulin), HTN , HLD, COPD, current smoker, who presents with 1-2 weeks of progressively worsening SOB, significant dyspnea on exertion, and leg swelling with development of multiple open sores on legs--> anasarca. She is admitted with new onset acute systolic CHF and LE cellulitis BNP >5000. D-Dimer is elevated. CT chest and chest X-ray showed pleural effusions and cardiomegaly. CTA Chest neg for PE Acute systolic and diastolic CHF- ECHO with EF 30-35%, Grade 1 diastolic dysfunction. 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 I/Os not likely true reflextion of fluid balance. Weight has decreased by almost 4 kg in 24 hrs. Clinically improved -continue tele monitoring for arrhythmias -eventually will need ischemic evaluation as outpatient -started lisinopril and metoprolol -appreciate Cardiology consult -continue to diurese with lasix IV and increase to bid -pt demands to go home tomorrow, will send out with lasix 40mg po qAM -replace potassium daily -continue statin - started Aspirin 81mg daily. - Monitor Is and Os, daily weights Leg wounds secondary to PAD, venous insufficiency, LE edema, with cellulitis. - arterial Doppler with focal stenosis left SFA. Bilateral venous Doppler negative for DVT. No sepsis on admission. Improving with abx Growing Staph from wound cxs, awaiting sensitivities - continue Zosyn in case of mixed organisms in other wounds considering animal hair in wounds, continue Vanc and eventually switch to po abx on discharge tomorrow -follow wound cultures -appreciate ID consult - wound care consult appreciated and will need outpatient Wound Care visits -Appreciate Vascular consult-will see if recommend intervention--> since pt wants to go home tomorrow, will arrange outpatient Vascular f/u -continue diuresis to improve healing DM2 - HBA1C 5.3%-very well controlled - Glycemic control consult placed on admission -continue Lantus COPD-stable - c/w Breo Ellipta + Albuterol PRN for wheezing. Smoking - cessation counseling given again today, she is not quite ready to quit HTN - c/w Lisinopril 20mg daily, started Toprol Spinal compression fractures, Osteoporosis, Vitamin D deficiency-asymptomatic, seen on chest CT; Vit D level severely low at 8 -start Vit D 2000 units daily -will need osteoporosis tx as outpt with PCP Dispo: tele currently, wants to go home tomorrow DVT Proph: Hep SQ TID Code: Full
[2016-09-21] MEDS: EUCERIN CR 120 GM JAR EXT SCH (21:43)
[2016-09-21] MEDS: VANCOMYCIN INJ 900 MG in SODIUM CHLORIDE 0.9% 250ML 250 ML IV SCH (21:53)
[2016-09-22] MEDS: ACETAMINOPHEN 325 MG TAB PO PRN ×2 (00:05→09:47)
[2016-09-22 04:02] VITALS: BP 151/82; PULSE 90; TEMP 36.4; O2SAT 96
[2016-09-22 06:03] LABS: HEMATOCRIT 40.3 % (37-47); MEAN CELL VOLUME 91.6 fL (80-100); MEAN CORPUSCULAR HEMOGLOBIN 30.2 pg (25-34); PLATELET COUNT 303 K/uL (130-400)
[2016-09-22] MEDS: PIPERACILL/TAZOBAC IV 3.375 GM in DEXTROSE 5% 100ML 100 ML IV SCH ×2 (06:07→13:44)
[2016-09-22] MEDS: HEPARIN SOD 5000 UNIT/0.5 ML CARP SQ SCH ×2 (06:10→13:44)
[2016-09-22 06:34] LABS: BUN/CREATININE RATIO 22.5 (10-20); CREATININE 0.7 mg/dl (0.60-1.20); MAGNESIUM 2.1 mg/dl (1.8-2.4)
[2016-09-22 07:14] LABS: CALCIUM 8.9 mg/dl (8.5-10.1)
[2016-09-22 07:29] VITALS: BP 145/84; PULSE 85; TEMP 36.7; O2SAT 96
[2016-09-22 08:00] VITALS: O2SAT 96
[2016-09-22 08:30] VITALS: BP 144/77; PULSE 97
[2016-09-22] MEDS: ASPIRIN 81 MG ECTAB PO SCH (08:33)
[2016-09-22] MEDS: ATORVASTATIN 40 MG TAB PO SCH (08:33)
[2016-09-22] MEDS: METOPROLOL SUCC 25MG EXT REL TAB PO SCH (08:34)
[2016-09-22] MEDS: POTASSIUM CHLORIDE 10 MEQ TABCR PO SCH (08:34)
[2016-09-22] MEDS: FUROSEMIDE INJ 20 MG in SYRINGE 0 ML IV SCH (08:35)
[2016-09-22] MEDS: IPRATROPIUM BROMIDE/ALBUTEROL respimat INH INH SCH ×2 (08:35→12:39)
[2016-09-22] MEDS: NICOTINE 14 MG/24 HR TDSY TD SCH (08:37)
[2016-09-22] MEDS: LISINOPRIL 20 MG TAB PO SCH (08:37)
[2016-09-22] MEDS: FLUTICASONE FUROATE-VILANTEROL 200/25 MCG INH INH SCH (08:38)
[2016-09-22] MEDS: INSULIN ASPART 100 UNITS/ML 3 ML PEN SC SCH ×2 (08:41→12:05)
[2016-09-22] MEDS ORDERED: CHOLECALCIFEROL 1000 INTER.UNIT TAB PO SCH (09:00)
[2016-09-22] MEDS ORDERED: METO-452 PO (09:15)
[2016-09-22] MEDS ORDERED: LSN20 PO (09:15)
[2016-09-22] MEDS ORDERED: ECRCR EXT (09:15)
[2016-09-22] MEDS ORDERED: POTA10CA28 PO (09:15)
[2016-09-22] MEDS ORDERED: AMOX875T PO (09:15)
[2016-09-22] MEDS ORDERED: SALI0.6510 (09:15)
[2016-09-22] MEDS ORDERED: NICO14DI5 TD (09:15)
[2016-09-22] MEDS ORDERED: VTMD1000 PO (09:15)
[2016-09-22] MEDS ORDERED: ASPEC81 PO (09:15)
[2016-09-22] MEDS ORDERED: LVMI SC (09:15)
[2016-09-22] MEDS ORDERED: SNTO30 EXT (09:15)
[2016-09-22] MEDS ORDERED: FRS/40 PO (09:26)
--- NOTE | 2016-09-22 09:26 | Discharge Instructions ---
Discharge Instructions Date of Service Sep 22, 2016. Admission Reason for Admission: CHF,Cellulitis Discharge Discharge Diagnosis / Problem: CHF,cellulitis legs Discharge Goals Goal(s): Improve disease control, Diagnostic testing, Therapeutic intervention Activity Recommendations Activity Limitations: resume your previous activity Exercise/Sports Limitations: gradually increase as tolerated Shower/Bathe: no limitations . Instructions / Follow-Up Instructions / Follow-Up You were admitted with congestive heart failure. You were started on several medications to make your heart healthier and to get rid of excess fluid. It is important that you follow up with your new Community Service Technician for further evaluation. You will eventually need a stress test of the heart as well. You also had cellulitis (infection of the skin and soft tissues) of the legs from multiple wounds. You need to change the dressings daily on your leg wounds and apply creams as prescribed. You will also have a visiting RN and should get follow up with the [facility] as well. You were found to have decreased blood flow in the left leg mostly due to plaque buildup in your leg arteries. You need to follow up with the Vascular Surgeon Dr. Jeffries in his office to further discuss any necessary procedures that need to be done to restore your blood flow to improve wound healing. All of these appointments will be made for you by our Nurse Navigator Jessica Fajardo Jd when she returns on Friday-you should be getting a call from her. THE BEST THING YOU CAN DO FOR YOUR HEALTH IS TO QUIT SMOKING IMMEDIATELY. Please discuss this with your PCP and you can continue to use Nicotine patches. Call your Primary Care doctor if any of the following symptoms or problems start or get worse: * Shortness of breath or difficulty breathing * Wake up at night short of breath * Chest pain * Cough * Swelling of your hands, feet, or legs * More fatigued or tired with your normal activity * Palpitations - sudden fast heart beats WEIGHT * Weigh yourself every morning after using the bathroom. * Use the same scale. * Wear the same amount of clothing. * Write your weight down on a chart. * Call your Primary Care doctor if you gain more than 2-3 pounds in 1-2 days. MEDICATIONS * Use this discharge instruction sheet for medication instructions. * Take your medications at the time your doctor ordered. * Do not skip a dose of your medicines. * If you miss a dose of medicine, take it as soon as possible, but DO NOT DOUBLE A DOSE. * Read your medicine information when you get home. * Know all of the side effects of your medicine. If in doubt, ask your pharmacist * Call your Primary Care doctor's office if you have any side effects. * Be sure all of your doctors know what medicine and herbs you take (including cold, flu, and herbal medicine). Take the following with you to your follow-up doctor appointments: * Weight Chart * Medication List * List of questions Do not drink excessive alcohol, beer or wine. Current Hospital Diet Patient's current hospital diet: Low Sodium Diet (2gm Na), Diabetes Type 2 Diet Discharge Diet Recommended Diet: Low Sodium Diet (2gm Na), Diabetes Type 2 Diet Fluid Restriction: 1500 ml (6 cups) Procedures Procedures Performed: Arterial Doppler lower extremities Venous Doppler lower extremities Echocardiogram Chest xray CT scan chest Pending Studies Studies pending at discharge: no Laboratory Results Last 24 Hours Test 09/21/16 09:41 09/21/16 11:21 09/21/16 16:58 09/21/16 20:19 Vancomycin Level Trough 18.0 mcg/ml Bedside Glucose 114 mg/dl 127 mg/dl 70 mg/dl Test 09/21/16 21:37 09/22/16 05:22 09/22/16 07:07 Bedside Glucose 117 mg/dl 103 mg/dl White Blood Count 7.20 K/uL Red Blood Count 4.40 M/uL Hemoglobin 13.3 g/dL Hematocrit 40.3 % Mean Corpuscular Volume 91.6 fL Mean Corpuscular Hemoglobin 30.2 pg Mean Corpuscular Hemoglobin Concent 33.0 g/dl RDW Standard Deviation 52.3 fL RDW Coefficient of Variation 15.7 % Platelet Count 303 K/uL Mean Platelet Volume 9.0 fL Sodium Level 137 mmol/L Potassium Level 4.0 mmol/L Chloride Level 97 mmol/L Carbon Dioxide Level 33 mmol/L Anion Gap 7.0 mmol/L Blood Urea Nitrogen 16 mg/dl Creatinine 0.70 mg/dl Est Creatinine Clear Calc Drug Dose 72.7 ml/min Estimated GFR () 102.5 Estimated GFR (Non- 88.4 BUN/Creatinine Ratio 22.5 Random Glucose 84 mg/dl Calcium Level 8.9 mg/dl Magnesium Level 2.1 mg/dl Hemoglobin A1c Test 09/19/16 14:30 Range/Units Estimated Average Glucose 105 mg/dl Hemoglobin A1c 5.3 4.5-5.6 % Lipid Panel Test 09/20/16 07:46 Range/Units Triglycerides Level 108 0-150 mg/dl Cholesterol Level 132 0-200 mg/dl HDL Cholesterol 56 mg/dl Cholesterol/HDL Ratio 2.4 LDL Cholesterol, Calculated 54 mg/dl Medical Emergencies . Who to Call and When: Call 911 or go to the Emergency Room if: * If at any time you feel your situation is an emergency * You have tightness or pain in your chest that does not go away with rest or Nitroglycerin * You are very short of breath even with rest . Non-Emergent Contact Non-Emergency issues call your: Primary Care Provider, Community Service Technician Call Non-Emergent contact if: you have a fever, wound has increased drainage, wound has increased redness, wound has increased pain, you have any medication questions . . "Provider Documentation" section prepared by Tamara Chakraborty. . VTE Core Measure Inpt VTE Proph given/why not?: Unfractionated heparin SQ
[2016-09-22] MEDS: VANCOMYCIN INJ 900 MG in SODIUM CHLORIDE 0.9% 250ML 250 ML IV SCH (09:43)
[2016-09-22] MEDS: COLLAGENASE OINT 30 GM TUBE EXT SCH (09:44)
[2016-09-22] MEDS: EUCERIN CR 120 GM JAR EXT SCH (09:44)
[2016-09-22 11:04] VITALS: TEMP 36.7; O2SAT 96
[2016-09-22 11:27] VITALS: BP 135/77; PULSE 88; O2SAT 98
--- NOTE | 2016-09-22 11:39 | Cardiology Follow-Up ---
Subjective Subjective Date of Service: Sep 22, 2016. Pt evaluation today including: conversation w/ patient, physical exam, chart review, lab review, review of studies, conversation w/ nursing consultant, review of inpatient medication list Additional Details: Breathing improved. No chest pain. Swelling improving in lower extremities. Tele reviewed -- no events overnight. Problem List Medical Problems: (1) Cellulitis Status: Acute (2) Diabetes Status: Chronic (3) Lower extremity ulceration Status: Acute (4) Peripheral edema Status: Acute Review of Systems Constitutional: No fever ENT: + problem reported (headache and neck pain from the soft pillow, now going away with Tylenol) Respiratory: No cough Cardiac: No chest pain Abdomen: No pain Heme: No abnormal bleeding/bruising Objective Vital Signs Last Vital Signs Documentation Date Time Temp Pulse Resp B/P (MAP) Pulse Ox O2 Delivery O2 Flow Rate FiO2 09/22/16 11:04 36.7 97 18 96 Room Air 09/22/16 08:30 144/77 (99) Physical Exam: General Appearance: no apparent distress, + pertinent finding (unkempt) ENT: hearing grossly normal, + pertinent finding (poor dentition) Neck: trachea midline Respiratory/Chest: no respiratory distress, no accessory muscle use, + decreased breath sounds (at bases bilaterally right > left) Cardiovascular: regular rate, rhythm, no murmur, + pertinent finding (1-2+ pitting edema bilat LEs to thighs) Abdomen: normal bowel sounds, non tender, soft Extremities: no calf tenderness Neurologic/Psychiatric: alert, normal mood/affect Skin: + rash (multiple superficial wounds on legs, some weeping clear fluid, with minimal surrounding erythema) Assessment and Plan 1. Acute systolic heart failure 2. Severe LV dysfunction EF 30-35% 3. DM2 on insulin 4. Hypertension 5. PAD 6. LE ulcerations Well perfused, weight down 6Kg, respiratory symptoms much improved. Residual pulmonary and systemic venous congestion on exam. Patient strongly prefers to be discharged today. Will need close cardiac follow-up -- Continue lisinopril, toprol XL --> agree with increasing to 50mg daily -- Home on PO lasix 40 mg daily -- F/u with heart failure clinic later this week -- Discussed daily weights, salt restriction -- Plan for outpatient stress at some point. -- Continued wound care as an outpatient. If slow healing in the future, post adequate diuresis may need additional eval for chronic venous insufficiency. Mild arterial insufficiency by ABIs, perfusion should be sufficient for wound healing. -- Continue ASA, statin, smoking cessation. Medications: Current Inpatient Medications Medications (Trade) Dose Ordered Sig/Kal Route Start Time Stop Time Status Last Admin Dose Admin Ioversol (Optiray 320) 100 ml UD PRN IV 09/19/16 15:30 09/23/16 15:29 Heparin Sodium (Porcine) (Heparin Sq 5000 Unit/0.5ml) 5,000 unit Q8 SQ 09/19/16 22:00 10/19/16 21:59 09/22/16 06:10 5,000 UNIT Acetaminophen (Tylenol Tab) 650 mg Q4H PRN PO 09/19/16 18:00 10/19/16 17:59 09/22/16 09:47 650 MG Al Hydrox/Mg Hydrox/Simethicone (Maalox Max Susp) 15 ml Q4H PRN PO 09/19/16 18:00 10/19/16 17:59 Magnesium Hydroxide (Milk Of Magnesia Susp) 30 ml Q6H PRN PO 09/19/16 18:00 10/19/16 17:59 Polyethylene (Miralax Powder Packet) 17 gm DAILY PRN PO 09/19/16 18:00 10/19/16 17:59 Ondansetron HCl (Zofran Inj) 4 mg Q6H PRN IV 09/19/16 18:00 10/19/16 17:59 09/19/16 20:27 4 MG Albuterol (Ventolin Hfa Inhaler) 2 puffs Q6H PRN INH 09/19/16 18:15 10/19/16 18:14 09/20/16 23:54 2 PUFFS Atorvastatin Calcium (Lipitor Tab) 40 mg DAILY PO 09/20/16 09:00 10/20/16 08:59 09/22/16 08:33 40 MG Miscellaneous Information (Consult Glycemic Management Pharmacy) 1 ea UD PRN N/A 09/19/16 18:17 10/19/16 18:16 Aspirin (Ecotrin Tab) 81 mg DAILY PO 09/20/16 09:00 10/20/16 08:59 09/22/16 08:33 81 MG Piperacillin Sod/ Tazobactam Sod 3.375 gm/Dextrose 115 ml @ 28.75 mls/ hr Q8H IV 09/19/16 22:00 09/29/16 21:59 09/22/16 06:07 28.75 MLS/HR Nicotine (Nicoderm Cq 14MG Patch) 1 patch QAM TD 09/20/16 09:00 10/20/16 08:59 09/21/16 08:08 1 PATCH Miscellaneous (Remove Nicoderm Patch) 1 ea HS N/A 09/20/16 21:00 10/20/16 20:59 09/21/16 21:00 1 EA Piperacillin Sod/ Tazobactam Sod (Consult) 1 ea UD PRN N/A 09/19/16 20:00 10/19/16 19:59 Insulin Aspart (novoLOG ASPART) SLIDING SCALE ACHS SC 09/19/16 21:00 10/19/16 20:59 09/22/16 08:41 2 UNITS Glucose (Glucose 40% Gel) 15-30 GRAMS 15 GRAMS... UD PRN PO 09/19/16 20:15 10/19/16 20:14 Glucose (Glucose Chew Tab) 4-8 Tablets 4 Tabl... UD PRN PO 09/19/16 20:15 10/19/16 20:14 Dextrose (Dextrose 50% 50ML Syringe) 25-50ML OF 50% DW IV FOR... UD PRN IV 09/19/16 20:15 10/19/16 20:14 Glucagon (Glucagon Inj) 1 mg UD PRN SQ 09/19/16 20:15 10/19/16 20:14 Vancomycin HCl (Consult) 1 ea UD PRN N/A 09/19/16 21:30 10/19/16 21:29 Fluticasone/ Vilanterol (Breo Ellipta 200-25 Mcg/Inh) 2 inha BID INH 09/20/16 09:00 10/20/16 08:59 09/21/16 08:08 2 INHA Sodium Chloride ([place] Nasal [place]) 1 sprays PRN PRN NA 09/20/16 04:30 10/20/16 04:29 Lisinopril (Zestril Tab) 20 mg QAM PO 09/21/16 09:00 10/21/16 08:59 09/22/16 08:37 20 MG Metoprolol Succinate (Toprol Xl Tab) 25 mg QAM PO 09/21/16 09:00 10/21/16 08:59 09/22/16 08:34 25 MG Potassium Chloride (Klor-Con M10) 20 meq QAM PO 09/21/16 09:00 10/20/16 08:59 09/22/16 08:34 20 MEQ Furosemide 20 mg/ Syringe 2 ml @ 4 mls/min BID17 IV 09/21/16 09:00 10/20/16 08:59 09/22/16 08:35 4 MLS/MIN Collagenase (Santyl Oint) 1 appln BID EXT 09/21/16 09:30 10/21/16 09:29 09/22/16 09:44 1 APPLN Multi-Ingredient Ointment (Eucerin Unscented Cr) 1 appln BID EXT 09/21/16 21:00 10/21/16 20:59 09/22/16 09:44 1 APPLN Vancomycin HCl 900 mg/Sodium Chloride 268 ml @ 125 mls/hr Q12H IV 09/21/16 22:00 09/29/16 21:59 09/22/16 09:43 125 MLS/HR Albuterol/ Ipratropium (Combivent Respimat Inh) 1 puffs QID INH 09/21/16 16:00 10/21/16 15:59 09/22/16 08:35 1 PUFFS Albuterol/ Ipratropium (Duoneb) 3 ml Q2H PRN INH 09/21/16 12:15 10/21/16 12:14 Cholecalciferol (Vitamin D Tab) 2,000 inter.unit QAM PO 09/22/16 09:00 10/22/16 08:59 09/22/16 08:34 2,000 INTER.UNIT Insulin Detemir (Levemir Flexpen/ FlexTouch) 24 unit DAILY@1630 SC 09/22/16 16:30 10/22/16 16:29 Lab Results: 09/22/16 05:22 09/22/16 05:22 Test 09/22/16 05:22 09/22/16 11:18 Red Blood Count 4.40 M/uL (4.2-5.4) Mean Corpuscular Volume 91.6 fL (80-100) Mean Corpuscular Hemoglobin 30.2 pg (25-34) Mean Corpuscular Hemoglobin Concent 33.0 g/dl (32-36) RDW Standard Deviation 52.3 fL (36.4-46.3) RDW Coefficient of Variation 15.7 % (11.5-14.5) Mean Platelet Volume 9.0 fL (7.4-10.4) Anion Gap 7.0 mmol/L (3-11) Est Creatinine Clear Calc Drug Dose 72.7 ml/min Estimated GFR () 102.5 Estimated GFR (Non- 88.4 BUN/Creatinine Ratio 22.5 (10-20) Calcium Level 8.9 mg/dl (8.5-10.1) Magnesium Level 2.1 mg/dl (1.8-2.4) Bedside Glucose 94 mg/dl (70-90)
[2016-09-22] MEDS ORDERED: INSULIN DETEMIR FLEXPEN/FLEX TOUCH 100 UNITS/ML 3ML SC SCH (16:30)
[2016-09-22] MEDS ORDERED: VANCOMYCIN TROUGH SCH (21:30)
--- NOTE | 2016-10-06 16:25 | Discharge Summary ---
Discharge Summary Date of Service Sep 22, 2016. Discharge Summary Admission Date: Sep 19, 2016 at 18:17 Discharge Date: Sep 22, 2016 Discharge Disposition: Home with services Principal Diagnosis: Acute combined systolic and diastolic CHF, Lower extremity cellulitis Problems/Secondary Diagnoses: Diabetes mellitus II on insulin HTN HLD COPD Current smoker Pleural effusions PAD-focal stenosis left SFA Venous insufficiency Leg wounds infected with MSSA, Enterococcus, and GBS Spinal compression fractures Osteoporosis Vitamin D deficiency Procedures: Echo: * Left ventricular systolic function is severely reduced. LVEF 30-35% * Grade I diastolic dysfunction, (abnormal relaxation pattern). * The right ventricular systolic function is normal as assessed by tricuspid annular plane systolic excursion (TAPSE) (normal >1.5 cm). CTA Chest Chest xrays Venous Doppler lower extremities Arterial Doppler Lower extremities Consultations: Cardiology Infectious Disease Medication Reconciliation New Medications: Amoxicillin & Pot Clavulanate (Augmentin 875-125 mg) 1 Tab Tab 875 MG PO BID for 11 Days, #22 TAB Furosemide (Lasix) 40 Mg Tab 40 MG PO QAM for 30 Days, #30 TAB Metoprolol Succinate (Toprol Xl) 50 Mg Tab 1 TAB PO DAILY for 30 Days, #30 TAB 0 Refills Aspirin (Aspirin EC Low Dose) 81 Mg Ectab 81 MG PO DAILY for 30 Days, #30 TAB OTC Cholecalciferol (Vitamin D3) 1,000 Inter.unit Tab 2000 INTER.UNIT PO QAM for 30 Days, TAB OTC Collagenase (Santyl) 250 Unit/Gm Oin 1 APPLN EXT BID for 30 Days, #1 EA Eucerin (Hydrocerin) 360 Appln/120 Gm Cr 1 APPLN EXT BID for 30 Days, #1 EA Lisinopril (Lisinopril) 20 Mg Tab 20 MG PO QAM for 30 Days, #30 TAB Nicotine (Nicoderm Cq 14MG Patch) 14 Mg/24 Hr Dis 1 PATCH TD QAM for 14 Days, #14 EA OTC Potassium Chloride (Micro-K Ext Rel) 10 Meq Capcr 10 MEQ PO QAM for 30 Days, #30 CAP Saline ([place] Nasal [place]) 0.65 % Spr 1 SPRAYS NA PRN PRN for DRYNESS for 30 Days, #1 BTL Changed Medications: Insulin Detemir (Levemir) 100 Units/Ml Inj 25 UNITS SC DAILY for 30 Days (Changed from: 46 UNITS) Continued Medications: Albuterol Hfa (Ventolin Hfa) 200 Puffs/30103 Mcg Aers 2-4 PUFFS INH Q6H PRN for Shortness of Breath Atorvastatin (Lipitor) 40 Mg Tab 40 MG PO DAILY Fluticasone Furoate-Vilanterol (Breo Ellipta 200-25 Mcg/INH) 1 Inh Inh 2 PUFF INH BID Discontinued Medications: Atenolol (Tenormin) 50 Mg Tab 50 MG PO QAM Lisinopril/Hctz (Zestoretic 20MG/25MG) Tab 1 TAB PO DAILY Referrals At Discharge Follow up Referrals: [facility] Transfer[facility] Referral - Within 2 Weeks with William Grier MD Family Practice Referral - Within 1 Week with Nya Rodarte M.D. Surgery Referral - Within a Month with Tom Jeffries M.D. Discharge Exam Feeling much better, has diuresed 6 kg of BW, legs much less swollen but very anxious to get home today. Home health being arranged. Afebrile, denies SOB. Physical Exam General Appearance: no apparent distress, + pertinent finding (unkempt), very pleasant Eyes: normal inspection, sclerae normal ENT: hearing grossly normal, + pertinent finding (poor dentition) Neck: trachea midline Respiratory/Chest: no respiratory distress, no accessory muscle use, + decreased breath sounds ( throughout but improved from previous, no wheeze or crackles) Cardiovascular: regular rate, rhythm, no murmur, + pertinent finding (1-2+ pitting edema bilat LEs to thighs and abdomen) Abdomen: normal bowel sounds, non tender, soft Extremities: no calf tenderness, unable to palpate pedal pulses Neurologic/Psychiatric: alert, normal mood/affect Skin: + rash (multiple superficial wounds on legs, some weeping clear fluid, with minimal surrounding erythema that is improved from previous) Review of Systems: Constitutional: No fever Eyes: No problem reported ENT: No problem reported Respiratory: + cough, No shortness of breath Cardiovascular: + edema, No chest pain Abdomen: No pain, No nausea, No vomiting Musculoskeletal: No problem reported Genitourinary - Female: No problem reported Neurologic: No problem reported Psychiatric: No problem reported Endocrine: No problem reported Hematologic / Lymphatic: No problem reported Integumentary: No problem reported Hospital Course This pt is a 71 yo female with a PMHx of Diabetes mellitus II (on insulin), HTN , HLD, COPD, current smoker, who presents with 1-2 weeks of progressively worsening SOB, significant dyspnea on exertion, and leg swelling with development of multiple open sores on legs--> anasarca. She is admitted with new onset acute systolic CHF and LE cellulitis BNP >5000. D-Dimer is elevated. CT chest and chest X-ray showed pleural effusions and cardiomegaly. CTA Chest neg for PE Acute systolic and diastolic CHF- ECHO with EF 30-35%, Grade 1 diastolic dysfunction. 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 I/Os not likely true reflection of fluid balance. Weight has decreased by 6kg in 48 hrs. Clinically improved -no significant events on tele monitoring for arrhythmias -eventually will need ischemic evaluation as outpatient--> f/u with Cardiology -started lisinopril and metoprolol -appreciate Cardiology consult --diuresed with lasix IV and will dc on po lasix -replace potassium -continue statin - started Aspirin 81mg daily. - daily weights at home, low Na+ diet, fluid restrict Leg wounds secondary to PAD, venous insufficiency, LE edema, with cellulitis. - arterial Doppler with focal stenosis left SFA. Bilateral venous Doppler negative for DVT. No sepsis on admission. Improving with abx Growing MSSA, Enterococcus faecalis, and Gr B Strep from wound cxs - received Zosyn and Vanc while inpatient and will switch to po Augmentin on discharge -appreciate ID consult - wound care consult appreciated and will need outpatient Wound Care visits -Appreciate Vascular consult-will see if recommend intervention--> since pt wants to go home, will arrange outpatient Vascular f/u -continue diuresis to improve healing DM2 - HBA1C 5.3%-very well controlled - Glycemic control consult placed on admission -continue Lantus COPD-stable - c/w Breo Ellipta + Albuterol PRN for wheezing. Smoking - cessation counseling given again today, she is not quite ready to quit HTN - c/w Lisinopril 20mg daily, started Toprol Spinal compression fractures, Osteoporosis, Vitamin D deficiency-asymptomatic, seen on chest CT; Vit D level severely low at 8 -start Vit D 2000 units daily -will need osteoporosis tx as outpt with PCP Dispo: to home DVT Proph: Hep SQ TID provided Code: Full Total Time Spent: Greater than 30 minutes This includes examination of the patient, discharge planning, medication reconciliation, and communication with other providers. Discharge Instructions Please refer to the electronic Patient Visit Report (Discharge Instructions) for additional information. Follow-Up PCP within 1 week Cardiology within 2 weeks Vascular Surgery within 2 weeks Wound Care Clinic within 1 week Additional Copies To Nya Rodarte M.D.; William Grier MD; Humberto Parisi, DO; Tom Jeffries M.D.
[2016-10-10] MEDS ORDERED: AMOX500T PO (11:18)
[2016-10-14] MEDS ORDERED: CEPH500C2 PO (07:46)
== END 2016-09-22 13:00 | disposition home health service (06) | DRG 292 ==
LOC: C.EDB 13:30 → C.MED 18:17 → ENRESERV 18:57
PROVIDERS: ADMIT Internal Medicine; ATTEND Family Medicine
DX: I11.0 Hypertensive heart disease with heart failure (principal); L03.115 Cellulitis of right lower limb; L97.929 Non-pressure chronic ulcer of unspecified part of left lower leg with unspecified severity; L97.919 Non-pressure chronic ulcer of unspecified part of right lower leg with unspecified severity; L03.116 Cellulitis of left lower limb; M80.08XA Age-related osteoporosis with current pathological fracture, vertebra(e), initial encounter for fracture; J44.1 Chronic obstructive pulmonary disease with (acute) exacerbation; I50.41 Acute combined systolic (congestive) and diastolic (congestive) heart failure; I73.9 Peripheral vascular disease, unspecified; E11.622 Type 2 diabetes mellitus with other skin ulcer; E78.5 Hyperlipidemia, unspecified; E11.319 Type 2 diabetes mellitus with unspecified diabetic retinopathy without macular edema; Z79.4 Long term (current) use of insulin; Z79.899 Other long term (current) drug therapy; F17.200 Nicotine dependence, unspecified, uncomplicated

== ENCOUNTER 2019-07-26 03:09 | Inpatient (IN) ==
[2019-07-26] MEDS ORDERED: ALBUT/IPRATROP 3MG/0.5MG NEB 3 ML VIAL NEB STA (03:19)
--- NOTE | 2019-07-26 03:27 | Emergency Department Note ---
History of Present Illness General Chief complaint: Hypoglycemia Stated complaint: Hypoglycemia Time Seen by Provider: 07/26/19 03:18 Source: patient and EMS Mode of arrival: EMS Limitations: patient cooperation History of Present Illness Provider complaint: Hypoglycemia, altered mental status Onset (ago): hour(s) Severity: similar to prior episodes Relieved By: + none Exacerbated By: + movement Associated symptoms: + confusion and + shortness of breath Treatments prior to arrival: other (Oral glucose and IV dextrose solution by EMS) This is a 74-year-old female from home who presents via EMS to an episode of hypoglycemia. Patient here last night for a similar episode and signed out AGAINST MEDICAL ADVICE despite recurrent episodes of hypoglycemia. EMS states family reported to them that they were closely monitoring her all day. She ate supper around 6:00, and sometime after that took her usual dose of insulin. Later on tonight then they began to notice that she seemed slightly confused, and checked her sugar again. EMS reports that her blood sugar at the time they called EMS was 13. Initially BLS gave her 1 tube of oral glucose. They then began transporting the patient and rendezvoused with the paid intern who gave her 250 mL's of D10. He states a recheck of her blood sugar is now 110. Patient awake, alert, and oriented on arrival here. Patient states "the same thing happened". Patient denies any prodromal symptoms to suggest low blood sugar s uch as lightheadedness or dizziness, weakness or fatigue. Patient states she feels slightly short of breath again right now similar to last night and feels she needs a nebulizer treatment. Patient is a current smoker, with a history of COPD, does not wear home oxygen. With movement patient has increased back pain secondary to a fall from 3 weeks ago that she disclosed to me last night. Patient refused any additional imaging last night to rule out other trauma. Patient also refused any other imaging of her chest due to my concern for possible pleural effusions. Pt seen during a time of high acuity and national emergency pandemic while wearing PPE. Home Medications Home Medications Medication Instructions Recorded Confirmed Type insulin syringe-needle U-100 0.5 See Rx Instructions .ROUTE 03/04/19 07/26/19 Rx mL 31 gauge x 5/16" .COMPLEX #90 unspecified amlodipine 5 mg tablet 5 mg PO DAILY #30 tab 06/15/19 07/26/19 Rx furosemide 40 mg tablet 20 mg PO DAILY #15 tab 06/15/19 07/26/19 Rx ipratropium 20 mcg-albuterol 100 1 puffs INH QID #4 gm MDD 6 06/15/19 07/26/19 Rx mcg/actuation mist for inhalation puffs/day metoprolol succinate 50 mg 50 mg PO DAILY #30 tab 06/15/19 07/26/19 Rx tablet,extended release 24 hr potassium chloride 10 mEq 10 meq PO BID #60 cap 06/15/19 07/26/19 Rx capsule,extended release albuterol sulfate 1 - 2 puff INHALATION DIRECTED 07/25/19 07/26/19 History PRN atorvastatin 40 mg PO DAILY 07/25/19 07/26/19 History insulin detemir U-100 [Levemir 43 unit SUBCUT DAILY 07/26/19 07/26/19 History U-100 Insulin] Allergies Allergy/AdvReac Type Severity Reaction Status Date / Time No Known Allergies Allergy Unverified 07/26/19 03:38 Past Med/Surg History Medical History Leg ulcer Tobacco abuse (Acute) Surgical History No history of previous surgery Family History Other No history of previous surgery Social History Preferred Language: Yemeni Communication Ability: Impaired [employer] Required: No Beliefs That Will Affect Care: None Current Living Situation: Family Current Living Situation Comment: lives with son sandi Other Information That Helps Us Care for You: No Feels Safe at Home: Yes Safety Concerns: Feels Safe At This Time Smoking Status: Current every day smoker Tobacco Type: cigarettes ; Do You Dip or Chew Tobacco: No ; Second Hand Exposure: Yes ; Tobacco Cessation Education Requested by Patient: No Hx Alcohol Use: No Hx Substance Use: No Review of Systems See HPI for pertinent positives & negatives. and A total of 10 systems reviewed and were otherwise negative Physical Exam Vital Signs Vital Signs - 24 hr 07/26/19 06:12 Pulse Rate [Right Finger] 117 H Respiratory Rate 28 H Respiratory Effort / Characteristics Labored Respiratory Pattern Agonal Blood Pressure [Right Arm] 191/134 H Blood Pressure Mean [Right Arm] 153 Blood Pressure Position [Right Arm] Lying Pulse Oximetry 96 Oxygen Delivery Method Nasal Cannula Oxygen Flow Rate 3 GENERAL: alert, ill appearing, well nourished, mild distress EYE EXAM: normal conjunctiva, PERRL and EOM's grossly intact OROPHARYNX: no exudate, no erythema, lips, buccal mucosa, and tongue normal and mucous membranes are dry, edentulous NECK: supple, no nuchal rigidity, no adenopathy, non-tender LUNGS: Markedly decreased to auscultation. Normal chest wall mechanics, no w/r/r, mildly increased work of breathing HEART: no murmurs, S1 normal and S2 normal ABDOMEN: abdomen soft, non-tender, normo-active bowel sounds, no masses, no rebound or guarding. BACK: Back is symmetrical on inspection and there is no deformity, no midline tenderness, no CVA tenderness. Kyphosis noted. SKIN: no rashes and no bruising UPPER EXTREMITIES: upper extremities are grossly normal. FROM, nml pulses b/l. Contusion noted to the proximal left upper extremity. No deformity, no bony tenderness. LOWER EXTREMITIES: No pitting edema. FROM, nml pulses b/l. Chronic appearing skin changes noted bilateral lower extremities consistent with recent edema. Slightly increased edema to the left lower extremity compared to the right. Appearance of healing ulcerative lesion noted to the dorsal aspect of the left foot over the left third, fourth, and fifth MTP area. Mild surrounding erythema. No active drainage or bleeding. Cyanosis noted to bilateral toes. Compartments soft bilaterally. No evidence of acute trauma to bilateral lower extremities. NEURO EXAM: Normal sensorium, cranial nerves II-XII grossly intact, normal speech, no gross weakness of arms, no gross weakness of legs. Gross sensation intact. No facial droop. Patient alert and oriented. Course Course 0344: Nursing staff recheck the patient's blood sugar and found it was down to 28. Patient to be given an amp of D50. Pt hypertensive. Pt placed on oxygen via NC. 0435: Pt send to CT. VS stable prior to transport. 0515: Pt returned from CT. VS stable, granddaughter at bedside. CT read pen ding. Pt seems more somnolent. Mildly tachypneic yet. 0540: UPdated pt and granddaughter on results. Patient awake, tracking me with her eyes, will not talk. Patient mildly tachypneic although oxygen saturations 96% on 2 L. Will order repeat BSG and stat ABG. 0555: Called Tanya Jesus the patient's daughter and listed next of kin. She states patient would not want to be intubated, could otherwise be resuscitated with CPR, defibrillation, and medications if need be. Administered Medications Dextrose (Dextrose 50%) 25 - 50 ml IV UD PRN; Protocol PRN Reason: Hypoglycemia Protocol Stop: 08/25/19 09:18 Last Admin: 07/26/19 14:25 Dose: 25 ml Documented by: [id number] Admin: 07/26/19 11:56 Dose: 25 ml Documented by: [id number] Admin: 07/26/19 11:35 Dose: 50 ml Documented by: [id number] Heparin Sodium (Porcine) (Heparin Sodium (Porcine)) 5,000 units SQ Q12 LUCAS Stop: 08/25/19 20:59 Last Admin: 07/26/19 20:10 Dose: 5,000 units Documented by: [id number] Cosigned by: [id number] Furosemide 40 mg/ Albumin (Human) 54 mls @ 54 mls/hr IV BID LUCAS Stop: 07/28/19 20:59 Last Infusion: 07/26/19 21:37 Dose: 0 mls/hr Documented by: [id number] Admin: 07/26/19 20:35 Dose: 54 mls/hr Documented by: [id number] Cefepime HCl 2,000 mg/ Syringe 20 mls @ 5.5 mls/min IV Q8H LUCAS; Protocol Stop: 07/28/19 19:59 Last Admin: 07/27/19 03:42 Dose: 5.5 mls/min Documented by: [id number] Admin: 07/26/19 20:03 Dose: 5.5 mls/min Documented by: [id number] Acetaminophen (Ofirmev) 1,000 mg in 100 mls @ 400 mls/hr IV Q8H PRN PRN Reason: Pain or Fever Stop: 07/29/19 19:43 Last Infusion: 07/26/19 20:37 Dose: 0 mls/hr Documented by: [id number] Admin: 07/26/19 20:15 Dose: 400 mls/hr Documented by: [id number] Ioversol (Optiray 320 125ml) 125 ml IV ONCE PRN PRN Reason: Interaction Checking Stop: 07/30/19 04:57 Last Admin: 07/26/19 04:58 Dose: 118 ml Documented by: [id number] Discontinued Medications Albuterol (Duoneb) 3 ml NEB NOW STA Stop: 07/26/19 03:20 Last Admin: 07/26/19 03:35 Dose: 3 ml Documented by: [id number] Aspirin (Aspirin) 300 mg OK ONE ONE Stop: 07/26/19 19:39 Last Admin: 07/26/19 20:04 Dose: 300 mg Documented by: [id number] Dextrose (Dextrose 50%) 50 ml IV NOW ONE Stop: 07/26/19 03:44 Last Admin: 07/26/19 03:47 Dose: 50 ml Documented by: [id number] Dextrose (Dextrose 50%) 50 ml IV NOW ONE Stop: 07/26/19 04:53 Last Admin: 07/26/19 05:00 Dose: 50 ml Documented by: [id number] Furosemide (Lasix) Confirm Administered Dose 40 mg IV .STK-MED ONE Stop: 07/26/19 09:59 Last Admin: 07/26/19 10:07 Dose: 40 mg Documented by: [id number] Glucagon (Glucagen) 1 mg SQ ONE STA Stop: 07/26/19 13:59 Last Admin: 07/26/19 15:45 Dose: 1 mg Documented by: [id number] Sodium Chloride (Nss 1000ml) 1,000 mls @ 125 mls/hr IV .Q8H LUCAS Stop: 08/25/19 03:29 Last Admin: 07/26/19 19:09 Dose: Not Given Documented by: [id number] Potassium Chloride 10 meq/ (Dextrose/Sodium Chloride) 1,005 mls @ 100 mls/hr IV .Q10H3M LUCAS Stop: 08/25/19 03:44 Last Infusion: 07/26/19 09:40 Dose: 0 mls/hr Documented by: [id number] Infusion: 07/26/19 04:54 Dose: 150 mls/hr Documented by: [id number] Admin: 07/26/19 03:59 Dose: 100 mls/hr Documented by: [id number] Dextrose (D5w) 1,000 mls @ 50 mls/hr IV .Q20H LUCAS Stop: 08/25/19 06:29 Last Infusion: 07/26/19 09:40 Dose: 0 mls/hr Documented by: [id number] Admin: 07/26/19 06:38 Dose: 50 mls/hr Documented by: [id number] Furosemide 20 mg/ Syringe 2 mls @ 4 mls/min IV ONE ONE Stop: 07/26/19 09:46 Last Admin: 07/26/19 12:56 Dose: Not Given Documented by: [id number] Furosemide 40 mg/ Albumin (Human) 54 mls @ 54 mls/hr IV ONE STA Stop: 07/26/19 10:55 Last Infusion: 07/26/19 12:59 Dose: 0 mls/hr Documented by: [id number] Admin: 07/26/19 10:30 Dose: 54 mls/hr Documented by: [id number] Potassium Chloride (K Alessandro / Wtr) 10 meq in 100 mls @ 100 mls/hr IV Q1H LUCAS Stop: 07/26/19 12:44 Last Infusion: 07/26/19 16:48 Dose: 0 mls/hr Documented by: [id number] Admin: 07/26/19 15:20 Dose: 100 mls/hr Documented by: [id number] Infusion: 07/26/19 13:56 Dose: 100 mls/hr Documented by: [id number] Admin: 07/26/19 12:56 Dose: 100 mls/hr Documented by: [id number] Potassium Chloride (K Alessandro / Wtr) 10 meq in 100 mls @ 100 mls/hr IV Q1H LUCAS Stop: 07/26/19 17:14 Last Infusion: 07/26/19 19:08 Dose: 0 mls/hr Documented by: [id number] Admin: 07/26/19 17:39 Dose: 100 mls/hr Documented by: [id number] Infusion: 07/26/19 17:39 Dose: 100 mls/hr Documented by: [id number] Admin: 07/26/19 16:48 Dose: 100 mls/hr Documented by: [id number] Vancomycin HCl 1,500 mg/ (Sodium Chloride) 530 mls @ 200 mls/hr IV NOW ONE Stop: 07/26/19 22:38 Last Infusion: 07/26/19 22:52 Dose: 0 mls/hr Documented by: [id number] Admin: 07/26/19 20:04 Dose: 200 mls/hr Documented by: [id number] Potassium Chloride (K Alessandro / Wtr) Confirm Administered Dose 10 meq IV .STK-MED ONE Stop: 07/26/19 03:48 Last Admin: 07/26/19 03:49 Dose: Not Given Documented by: [id number] Potassium Chloride (Klor-Con M20) 20 meq PO BID LUCAS Stop: 08/27/19 09:59 Last Admin: 07/26/19 16:59 Dose: Not Given Documented by: [id number] Critical Care Time Critical Care Time: Yes Total Critical Care Time: 72 Critical care of 72 min performed to assess and manage high likelihood of life-threatening hypoglycemia, dyspnea, altered mental status, involving labs and imaging performed with assessment to evaluate hypoglycemia/hypoxia/ams diagnosis with frequent reassessment. This time includes bedside time, treatment discussions with patient/family/consultants, documentation time and excludes procedure time. Medical Decision Making Differential Diagnosis Differential Diagnosis includes but is not limited to dehydration, stroke, anemia, hypoglycemia, hyponatremia, hypernatremia, urinary tract infection, pneumonia, bronchitis, sepsis, gastroenteritis, additional abdominal pathology, metabolic abnormalities and infections, pneumonia, bronchitis, COPD/Asthma exacerbation, pneumothorax, pulmonary embolism, congestive heart failure, acute coronary syndrome Medical Records Attestation: I reviewed the patient's medical records. Home Medications Current Medication List: was personally reviewed by me Laboratory Data Attestation: I reviewed the patient's lab results. Result diagrams: 07/26/19 03:35 07/26/19 18:34 Lab Results 07/26/19 07/26/19 07/26/19 Range/Units 03:35 03:35 03:38 WBC 8.79 (4.8-10.8) K/uL RBC 4.26 (4.2-5.4) M/uL Hgb 12.4 (12.0-16.0) g/dL Hct 39.0 (37-47) % MCV 91.5 (80-100) fL MCH 29.1 (25-34) pg MCHC 31.8 L (32-36) g/dL RDW Std Deviation 53.5 H (36.4-46.3) fL RDW Coeff of Sonny 16.6 H (11.5-14.5) % Plt Count 258 (130-400) K/uL MPV 9.1 (7.4-10.4) fL Immature Gran % (Auto) 0.3 % Neut % (Auto) 84.7 % Lymph % (Auto) 4.1 % Garland % (Auto) 10.6 % Eos % (Auto) 0.3 % Baso % (Auto) 0.0 % Immature Gran # (Auto) 0.03 H (0.00-0.02) K/uL Neut # (Auto) 7.44 H (1.4-6.5) K/uL Lymph # (Auto) 0.36 L (1.2-3.4) K/uL Garland # (Auto) 0.93 H (0.11-0.59) K/uL Eos # (Auto) 0.03 (0-0.5) K/uL Baso # (Auto) 0.00 (0-0.2) K/uL Specimen Type POC pH (7.35-7.45) POC pCO2 (35-46) mmHg POC pO2 (80-95) mmHg POC HCO3 (19-24) gill/L POC Total CO2 (24-31) mmol/L POC Base Excess (-9-1.8) gill/L POC ABG O2 Sat (90-95) % Sodium 142 (136-145) mmol/L Potassium 3.6 D (3.5-5.1) mmol/L Chloride 105 (98-107) mmol/L Carbon Dioxide 31 (21-32) mmol/L Anion Gap 6.0 (3-11) BUN 17 (7-18) mg/dl Creatinine 0.48 L (0.6-1.2) mg/dl Est Cr Clr Drug Dosing 94.0 ml/min Est GFR ( Amer) 113.6 Est GFR (Non-Af Amer) 98.0 BUN/Creatinine Ratio 36.1 H (10-20) Glucose 5 L* (70-99) mg/dl POC Glucose 28 L* (70-99) mg/dl Calcium 8.6 (8.5-10.1) mg/dl Magnesium 2.2 (1.8-2.4) mg/dl Total Bilirubin 0.7 (0.2-1) mg/dl AST 152 H (15-37) U/L ALT 51 (12-78) U/L Alkaline Phosphatase 227 H (45-117) U/L Troponin I < 0.015 (0-0.045) ng/ml NT-Pro-B Natriuret Pep 795 (0-900) pg/ml Total Protein 7.6 (6.4-8.2) gm/dl Albumin 2.2 L (3.4-5.0) gm/dl Globulin 5.4 H (2.5-4.0) gm/dl Albumin/Globulin Ratio 0.4 L (0.9-2) 07/26/19 07/26/19 07/26/19 Range/Units 03:39 04:03 04:50 WBC (4.8-10.8) K/uL RBC (4.2-5.4) M/uL Hgb (12.0-16.0) g/dL Hct (37-47) % MCV (80-100) fL MCH (25-34) pg MCHC (32-36) g/dL RDW Std Deviation (36.4-46.3) fL RDW Coeff of Sonny (11.5-14.5) % Plt Count (130-400) K/uL MPV (7.4-10.4) fL Immature Gran % (Auto) % Neut % (Auto) % Lymph % (Auto) % Garland % (Auto) % Eos % (Auto) % Baso % (Auto) % Immature Gran # (Auto) (0.00-0.02) K/uL Neut # (Auto) (1.4-6.5) K/uL Lymph # (Auto) (1.2-3.4) K/uL [place]land # (Auto) (0.11-0.59) K/uL Eos # (Auto) (0-0.5) K/uL Baso # (Auto) (0-0.2) K/uL Specimen Type POC pH (7.35-7.45) POC pCO2 (35-46) mmHg POC pO2 (80-95) mmHg POC HCO3 (19-24) gill/L POC Total CO2 (24-31) mmol/L POC Base Excess (-9-1.8) gill/L POC ABG O2 Sat (90-95) % Sodium (136-145) mmol/L Potassium (3.5-5.1) mmol/L Chloride (98-107) mmol/L Carbon Dioxide (21-32) mmol/L Anion Gap (3-11) BUN (7-18) mg/dl Creatinine (0.6-1.2) mg/dl Est Cr Clr Drug Dosing ml/min Est GFR ( Amer) Est GFR (Non-Af Amer) BUN/Creatinine Ratio (10-20) Glucose (70-99) mg/dl POC Glucose 33 L* 179 H 58 L* (70-99) mg/dl Calcium (8.5-10.1) mg/dl Magnesium (1.8-2.4) mg/dl Total Bilirubin (0.2-1) mg/dl AST (15-37) U/L ALT (12-78) U/L Alkaline Phosphatase (45-117) U/L Troponin I (0-0.045) ng/ml NT-Pro-B Natriuret Pep (0-900) pg/ml Total Protein (6.4-8.2) gm/dl Albumin (3.4-5.0) gm/dl Globulin (2.5-4.0) gm/dl Albumin/Globulin Ratio (0.9-2) 07/26/19 07/26/19 07/26/19 Range/Units 05:20 05:46 06:05 WBC (4.8-10.8) K/uL RBC (4.2-5.4) M/uL Hgb (12.0-16.0) g/dL Hct (37-47) % MCV (80-100) fL MCH (25-34) pg MCHC (32-36) g/dL RDW Std Deviation (36.4-46.3) fL RDW Coeff of Sonny (11.5-14.5) % Plt Count (130-400) K/uL MPV (7.4-10.4) fL Immature Gran % (Auto) % Neut % (Auto) % Lymph % (Auto) % Garland % (Auto) % Eos % (Auto) % Baso % (Auto) % Immature Gran # (Auto) (0.00-0.02) K/uL Neut # (Auto) (1.4-6.5) K/uL Lymph # (Auto) (1.2-3.4) K/uL Garland # (Auto) (0.11-0.59) K/uL Eos # (Auto) (0-0.5) K/uL Baso # (Auto) (0-0.2) K/uL Specimen Type Arterial POC pH 7.32 L (7.35-7.45) POC pCO2 65 H (35-46) mmHg POC pO2 71 L (80-95) mmHg POC HCO3 33 H (19-24) gill/L POC Total CO2 35 H (24-31) mmol/L POC Base Excess 7.0 H (-9-1.8) gill/L POC ABG O2 Sat 92.0 (90-95) % Sodium (136-145) mmol/L Potassium (3.5-5.1) mmol/L Chloride (98-107) mmol/L Carbon Dioxide (21-32) mmol/L Anion Gap (3-11) BUN (7-18) mg/dl Creatinine (0.6-1.2) mg/dl Est Cr Clr Drug Dosing ml/min Est GFR ( Amer) Est GFR (Non-Af Amer) BUN/Creatinine Ratio (10-20) Glucose (70-99) mg/dl POC Glucose 175 H 153 H (70-99) mg/dl Calcium (8.5-10.1) mg/dl Magnesium (1.8-2.4) mg/dl Total Bilirubin (0.2-1) mg/dl AST (15-37) U/L ALT (12-78) U/L Alkaline Phosphatase (45-117) U/L Troponin I (0-0.045) ng/ml NT-Pro-B Natriuret Pep (0-900) pg/ml Total Protein (6.4-8.2) gm/dl Albumin (3.4-5.0) gm/dl Globulin (2.5-4.0) gm/dl Albumin/Globulin Ratio (0.9-2) 07/26/19 Range/Units 06:22 WBC (4.8-10.8) K/uL RBC (4.2-5.4) M/uL Hgb (12.0-16.0) g/dL Hct (37-47) % MCV (80-100) fL MCH (25-34) pg MCHC (32-36) g/dL RDW Std Deviation (36.4-46.3) fL RDW Coeff of Sonny (11.5-14.5) % Plt Count (130-400) K/uL MPV (7.4-10.4) fL Immature Gran % (Auto) % Neut % (Auto) % Lymph % (Auto) % Garland % (Auto) % Eos % (Auto) % Baso % (Auto) % Immature Gran # (Auto) (0.00-0.02) K/uL Neut # (Auto) (1.4-6.5) K/uL Lymph # (Auto) (1.2-3.4) K/uL Garland # (Auto) (0.11-0.59) K/uL Eos # (Auto) (0-0.5) K/uL Baso # (Auto) (0-0.2) K/uL Specimen Type POC pH (7.35-7.45) POC pCO2 (35-46) mmHg POC pO2 (80-95) mmHg POC HCO3 (19-24) gill/L POC Total CO2 (24-31) mmol/L POC Base Excess (-9-1.8) gill/L POC ABG O2 Sat (90-95) % Sodium (136-145) mmol/L Potassium (3.5-5.1) mmol/L Chloride (98-107) mmol/L Carbon Dioxide (21-32) mmol/L Anion Gap (3-11) BUN (7-18) mg/dl Creatinine (0.6-1.2) mg/dl Est Cr Clr Drug Dosing ml/min Est GFR ( Amer) Est GFR (Non-Af Amer) BUN/Creatinine Ratio (10-20) Glucose (70-99) mg/dl POC Glucose 72 (70-99) mg/dl Calcium (8.5-10.1) mg/dl Magnesium (1.8-2.4) mg/dl Total Bilirubin (0.2-1) mg/dl AST (15-37) U/L ALT (12-78) U/L Alkaline Phosphatase (45-117) U/L Troponin I (0-0.045) ng/ml NT-Pro-B Natriuret Pep (0-900) pg/ml Total Protein (6.4-8.2) gm/dl Albumin (3.4-5.0) gm/dl Globulin (2.5-4.0) gm/dl Albumin/Globulin Ratio (0.9-2) Imaging Data Radiologist's Impression: CT head: The study is limited by motion. Severe chronic small vessel ischemic change. 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 No ICH, mass-effect, or edema. No evidence of acute cortical stroke. Bilateral mastoid effusions. Radiologist: Sharath Reeves MD CTA chest: Comparison: Chest CT dated 09/19/2016 and chest x-ray dated 07/24/2016 No evidence of pulmonary embolism. Large left pleural effusion, increased compared to the prior chest CT. Moderate to large right pleural effusion. Fluid is of intermediate density suggesting possible exudate. Left lower lobe atelectasis. Lesser degree of compressive atelectasis of the right lower lobe and lingula. Heart size is normal. Coronary vessel calcifications. No significant pericardial effusion. No evidence of aortic dissection or aneurysm. Cholelithiasis. Hepatomegaly and free fluid seen. Radiologist: Sharath Reeves MD Addendum: Added by Sharath Reeves MD on 07/26/2019 at 0 5:31 AM Diffuse osteopenia. Compression fractures of T7, T10 and T12 are seen. The T7 fracture was previously seen. The T10 and T12 fractures are new compared to the prior study. T12 fracture may be subacute to chronic. The T10 fracture may be acute. At T10 there are multiple areas of lucencies concerning for pathologic fracture/underlying metastasis considering malignancy in the abdomen and pelvis. Consider further evaluation with MRI. CT abdomen and pelvis with contrast. 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 This is adjacent to the rectum, cannot exclude rectal involvement. No evidence of bowel obstruction. T10 vertebral body fracture with multiple areas of lucency and minimal posterior buckling. Please see chest CT discussion. T12 compression fracture which may be chronic but new compared to the chest CT from 2017. Cholelithiasis. Hepatomegaly. Small amount of free fluid. Bilateral renal cysts. Pancreas and spleen are unremarkable. Extensive subcutaneous edema seen which may reflect a degree of anasarca. Compression deformity of T12. The appendix is unremarkable. No free air. Radiologist: Sharath Reeves MD ECG Data Attestation: I personally reviewed and interpreted this ECG as follows: Indication: + SOB/dyspnea Rate (beats per minute): 114 Rhythm: + sinus tachycardia ECG Intervals/blocks: + Normal QRS and + Normal QT ECG [place]: + Normal ECG ST segments: + Nonspecific ST abnormalities ECG Findings: + Q waves (V2) Additional Comments: low voltage, no significant change compared to last night Blood Pressure Blood Pressure Findings: Elevated blood pressure Blood Pressure Disposition: further management by hospitalist LESA Narrative Elderly female returns the emergency room this evening for hypoglycemia and altered mental status. Patient was here with similar presentation the night before and refused some testing and eventually left AMA despite multiple attempts by myself and the patient's granddaughter to convince her to stay. Patient apparently had a similar episode this evening where she became hypoglycemic and altered requiring family to call 911. Patient presents here awake and alert, sugar improved after administration of dextrose prehospital, with slightly increased work of breathing similar to last night. Patient is a current smoker with a history of COPD and is requesting a nebulizer treatment. My initial conversation with the patient at bedside was again out of significant concern for her condition given recurrent hypoglycemia and no clear cause yet as to this etiology. Patient was agreeable with my plan for repeat labs and now CT imaging which she had refused to undergo last night. Patient again became hypoglycemic here, and was started on a dextrose containing solution as well as given additional IV dextrose. Upon patient's return from CT, patient began to become more somnolent and less alert. Patient was had eyes open, no seizure- like activity, and repeat check of her sugar was normal. As CT readings began to roll back, he was quickly apparent that there were multiple abnormalities noted with underlying complicated pathology. Initially several report sent with addendum was made to the stat read CT reports and then they called to discuss the case. I then immediately went to discuss the findings with the patient and granddaughter bedside. At this point the patient still had her eyes open and was breathing on her own but was tachypneic, however would not follow commands and would not answer questions. I advised the granddaughter to contact [facility] family immediately due to the evolving and concerning change in her condition as well as the new CT findings which were conveyed to both of them at bedside. I ordered a repeat BSG and stat ABG given concern for her change in mental status. I then sat down and called the patient's daughter who is also listed as a next of kin. I had a long conversation with her regarding her [id number] ER presentations and additional findings from bambi. We did discuss patient's CODE STATUS and she stated patient would not want to be intubated however they would want additional resuscitative efforts met at this time. Patient's daughter was clearly upset regarding the new diagnoses that were found on CT that I explained to her. I did discuss with her the critical nature and unstable condition of her mother and encouraged her to come see her in the hospital as soon as was possible. Case was then discussed with the hospitalist and I continued to reevaluate the patient at bedside. Patient did not have any improvement in her mentation. After discussion with the hospitalist they ordered additional labs. Urine was still pending. Advised the granddaughter of my concern for her critical status at this time and the granddaughter asked if she could go bring family to bedside as not everyone was able to drive. An order was placed for continuous cardiac monitoring. The monitor shows a rate of 110 with sinus tachycardia rhythm. Impression & Plan Hypoglycemia, COPD (chronic obstructive pulmonary disease), PAD (peripheral ar brett disease), Hypertension, Tobacco abuse, Hypoxia, Acute alteration in mental status, Pleural effusion, Pelvic mass in female, Tachycardia Discharge Plan Visit Data *Final* Discharge Date/Time: 07/26/19 07:00 Chief Complaint: Hypoglycemia Stated Complaint: Hypoglycemia ED Provider: Ольга Paz Discharge Problem: Hypoglycemia, COPD (chronic obstructive pulmonary disease), PAD (peripheral artery disease), Hypertension, Tobacco abuse, Hypoxia, Acute alteration in mental status, Pleural effusion, Pelvic mass in female, Tachycardia Patient Disposition: Admitted As Inpatient Discharge Instructions Interventions: ED Discharge Assessment Last Done: 07/26/19 07:00 Discharge Problem: COPD (chronic obstructive pulmonary disease) Qualifiers: COPD type: unspecified COPD Qualified Code(s): J44.9 - Chronic obstructive pulmonary disease, unspecified Hypertension Qualifiers: Hypertension type: essential hypertension Qualified Code(s): I10 - Essential (primary) hypertension
[2019-07-26] MEDS ORDERED: SODIUM CHLORIDE 0.9% 1000ML 1,000 ML IV SCH (03:30)
[2019-07-26] MEDS ORDERED: DEXTROSE 50% 50 ML SYRINGE IV ONE ×2 (03:43→04:52)
[2019-07-26] MEDS ORDERED: POTASSIUM CHLORIDE 10 MEQ in D5W AND 1/2NSS 1,000 ML IV SCH (03:45)
[2019-07-26] MEDS ORDERED: POTASSIUM CHLORIDE 10 MEQ / 100ML WTR IV ONE (03:47)
[2019-07-26 03:51] LABS: Eosinophils # (auto) 0.03 K/uL (0-0.5); Eosinophils % (auto) 0.3 %; Hemoglobin 12.4 g/dL (12.0-16.0); Immature Granulocytes # (auto) 0.03 K/uL (0.00-0.02); Immature Granulocytes % (auto) 0.3 %; Lymphocytes # (auto) 0.36 K/uL (1.2-3.4); Lymphocytes % (auto) 4.1 %; Mean Corpuscular Hemoglobin 29.1 pg (25-34); Mean Corpuscular Hgb Conc 31.8 g/dL (32-36); Mean Corpuscular Volume 91.5 fL (80-100); Mean Platelet Volume 9.1 fL (7.4-10.4); Monocytes # (auto) 0.93 K/uL (0.11-0.59); Monocytes % (auto) 10.6 %; Neutrophils # (auto) 7.44 K/uL (1.4-6.5); Neutrophils % (auto) 84.7 %; Platelet Count 258 K/uL (130-400); RDW Coefficient of Variation 16.6 % (11.5-14.5); RDW Standard Deviation 53.5 fL (36.4-46.3); Red Blood Count 4.26 M/uL (4.2-5.4); White Blood Count 8.79 K/uL (4.8-10.8)
[2019-07-26 04:24] LABS: Alanine Aminotransferase 51 U/L (12-78); Albumin Level 2.2 gm/dl (3.4-5.0); Alkaline Phosphatase 227 U/L (45-117); Aspartate Aminotransferase 152 U/L (15-37); BUN Creatinine Ratio 36.1 (10-20); Bilirubin,Total 0.7 mg/dl (0.2-1); Blood Urea Nitrogen 17 mg/dl (7-18); Calcium 8.6 mg/dl (8.5-10.1); Carbon Dioxide 31 mmol/L (21-32); Chloride 105 mmol/L (98-107); Est GFR (African American) 113.6; Globulin 5.4 gm/dl (2.5-4.0); Glucose 5 mg/dl (70-99); Magnesium 2.2 mg/dl (1.8-2.4); NT Pro B Type Natriuretic Pept 795 pg/ml (0-900); Potassium 3.6 mmol/L (3.5-5.1); Sodium 142 mmol/L (136-145); Total Protein 7.6 gm/dl (6.4-8.2); Troponin I < 0.015 ng/ml (0-0.045)
[2019-07-26 04:42] LABS: Albumin Globulin Ratio 0.4 (0.9-2)
[2019-07-26] MEDS ORDERED: OPTIRAY 320 125ml IV PRN (04:58)
--- NOTE | 2019-07-26 06:25 | History & Physical Report ---
Date of Service July 26, 2019 Assessment & Plan (1) Abdominal mass: Jalyn Giles is a critically ill 74yo F with a past medical history of COPD, type 2 diabetes mellitus on evening insulin, CHF and heart failure with reduced ejection fraction of 30 to 35%, hyperlipidemia, hypertension who presents with a glucose of 5. Goals of care: Jalyn is a critically ill 74-year-old female who presents with a large abdominal mass and repeated episodes of severe hypoglycemia. She presented by ambulance after a hypoglycemic episode to 5, with increased to approximately 115 following dextrose administration. While in the emergency department her mental status is declined, her feet have become mottled, and her clinical condition has deteriorated. Her new neoplasm and condition was discussed with her granddaughter at bedside who has also gone to get the patient's daughter to return to the hospital for a goals of care discussion. Given patient's clinical condition, rapid deterioration, and overall picture she may be in the active phase of dying. Altered mental status 2/2 hypoglycemia Patient with persistent hypoglycemic episodes over the last week, family reports blood sugars frequently in the 30s Suspect paraneoplastic in the setting of new abdominal mass as noted below ABG at bedside 7.319/64.9/71/33.3 C-peptide & insulin pending, patient and family endorse that she has not changed brand, type, timing, or dose of her insulin and takes it reliably in the evening -Lactate pending 2 peripheral IVs, D5 half-normal saline at 100/h and D5 at 50 cc/h running -Glucose checks every hour Hold long-acting insulin at this time Abdominal mass CT abdomen shows a 10.8 x 13.9 x 11.1 cm new abdominal mass suspicious for ovarian neoplasm. Multiple new T10-T12 vertebral compression fractures appreciated suspicious for pathologic fracture Palliative care consult placed Oncology consult held pending goals of care discussion Bilateral pleural effusions Increased Hounsfield density on CT, suspicious for exudate No signs of fluid overload in the pulmonary vasculature, no leg swelling. Fluids are suspicious for a malignant effusion Pulmonary consulted for palliative thoracentesis Heart failure with reduced ejection fraction of approximately 30%, CAD No peripheral fluid overload, no JVD at bedside Per family patient had not been taking amlodipine, atorvastatin, or Lasix for at least several weeks prior to admission Hold p.o. meds due to mental status COPD Supplemental O2/BiPAP as needed DuoNebs, albuterol as needed Hypertension Cardiac medications held as above DVT prophylaxis: SCDs CODE STATUS: Discussed with patient's granddaughter, and daughter via phone. Patient would want a trial of CPR, shock, and ACLS medications but would not want intubation during a code or for declining respiratory status. Disposition: PCU, pending goals of care discussion with family (2) Hypoglycemia: (3) Tobacco abuse: (4) Hypertension: (5) Hyperlipidemia: (6) PAD (peripheral artery disease): (7) CHF (congestive heart failure): (8) COPD (chronic obstructive pulmonary disease): (9) Diabetes: (10) Heart failure with reduced ejection fraction: History of Present Illness Chief Complaint: Altered mental status, severe hypoglycemia Primary Care Provider: ROBBY Parra Jalyn Giles a 74-year-old female with past medical history of tobacco abuse, hypertension, hyperlipidemia, COPD, diabetes mellitus, CHF, and heart failure with reduced ejection fraction of 30-35% who presents to the emergency department by ambulance after an episode of severe hypoglycemia to 5. She has had similar episodes in the past week, and was seen in the emergency department last night for a hypoglycemic episode to the 30s which improved with dextrose administration but left AMA prior to further work-up. She is seen at bedside with her granddaughter, at time of visit patient is not able to answer questions due to altered mental status. Per patient's daughter she has been in "bad shape "for least a week. She has become extremely weak, cannot walk, and has had blood sugars frequently going down to the 30s in the evenings. Patient is on insulin detemir 43 units at night, per her family she takes this reliably in the evening and the type of insulin, lot of insulin, dose of insulin, and timing of her insulin have not changed in the past weeks. Her granddaughter also endorses that Jalyn seems to have poor appetite, is unsure if she has had weight change, and has had intermittent diarrhea. She does not think her grandmother has had any other symptoms, and to her knowledge has not had new fever, chills, cough, recent respiratory illness, or other symptoms. Remaining history limited by mental status Medical history: Reviewed in EMR Medications: Reviewed in EMR. Of note patient's granddaughter reports that Jalyn takes her insulin reliably at night, takes her inhalers regularly, but has not taken her other oral medications including amlodipine, atorvastatin, metoprolol, and Lasix for several weeks. Surgical history: Reviewed Allergies: No known drug allergies Social: Jalyn lives at her home with her son. Per her granddaughter her decision maker would probably be her daughter who is coming in the hospital to see her, although she does not have a formal medical power of technology advisor. Granddaughter reports that she does not drink alcohol, or use recreational drugs. Granddaughter reports that she smokes at least a pack a day, but stopped smoking about a week ago. CODE STATUS: Conditional code. Per patient's daughter/granddaughter Jalyn would not want intubation for any reason including in code context or for declining respiratory status. Would want trial of CPR, shock, and ACLS medications. Allergies Allergy/AdvReac Type Severity Reaction Status Date / Time No Known Allergies Allergy Unverified 07/26/19 03:38 Home Medications Home Medications Medication Instructions Recorded Confirmed Type insulin syringe-needle U-100 0.5 See Rx Instructions .ROUTE 03/04/19 07/26/19 Rx mL 31 gauge x 5/16" .COMPLEX #90 unspecified amlodipine 5 mg tablet 5 mg PO DAILY #30 tab 06/15/19 07/26/19 Rx furosemide 40 mg tablet 20 mg PO DAILY #15 tab 06/15/19 07/26/19 Rx ipratropium 20 mcg-albuterol 100 1 puffs INH QID #4 gm MDD 6 06/15/19 07/26/19 Rx mcg/actuation mist for inhalation puffs/day metoprolol succinate 50 mg 50 mg PO DAILY #30 tab 06/15/19 07/26/19 Rx tablet,extended release 24 hr potassium chloride 10 mEq 10 meq PO BID #60 cap 06/15/19 07/26/19 Rx capsule,extended release albuterol sulfate 1 - 2 puff INHALATION DIRECTED 07/25/19 07/26/19 History PRN atorvastatin 40 mg PO DAILY 07/25/19 07/26/19 History insulin detemir U-100 [Levemir 43 unit SUBCUT DAILY 07/26/19 07/26/19 History U-100 Insulin] Past Med/Surg History Medical History Leg ulcer Tobacco abuse (Acute) Surgical History No history of previous surgery Family History Other No history of previous surgery Social History Preferred Language: Korean Communication Ability: Impaired Line Up Examiner Required: No Beliefs That Will Affect Care: None Current Living Situation: Family Current Living Situation Comment: lives with son sandi Other Information That Helps Us Care for You: No Feels Safe at Home: Yes Safety Concerns: Feels Safe At This Time Smoking Status: Current every day smoker Tobacco Type: cigarettes ; Do You Dip or Chew Tobacco: No ; Second Hand Exposure: Yes ; Tobacco Cessation Education Requested by Patient: No Hx Alcohol Use: No Hx Substance Use: No Review of Systems Review of Systems: Unobtainable due to cognitive status Physical Exam Physical Exam: General: Appears critically ill. Withdraws to noxious stimuli. Does not respond or follow commands. HEENT: Pupils minimally reactive to light. Does not track movement. Pulm: Lungs globally diminished, poor air movement. No overt wheezes or rales appreciated. Mild increased work of breathing. Cardiac: Tachycardic, -mrg. Radial pulses intact and symmetrical. Abdominal: Softly distended, low right pelvic mass appreciated. Extremities: No pitting edema in lower extremities. Bilateral toes cyanotic with mottling. Results & Data Results & Data ([facility]) Vital Signs (Past 12 Hours) Vital Signs Temp Pulse Pulse Resp BP BP Pulse Ox 07/26/19 06:12 117 H 28 H 191/134 H 96 07/26/19 04:56 104 H 26 H 193/112 H 99 07/26/19 03:36 104 H 35 H 98 07/26/19 03:23 36.4 C L 116 H 28 H 162/109 H 90 Supervising Physician Co-Signing Physician Notes Patient seen and examined, chart reviewed, case discussed with Dr. Phillips and I agree with his assessment and plan as documented above. Briefly, patient is a 74yo C female with history of DM on insulin therapy, CHF, absent from care for years. She presents with AMS and hypoglycemia with a BSG of 5. On exam she is afebrile, HD stable, minimally responsive. Not following commands or responding verbally HEENT - Pupils sluggishly reactive, dry MM Heart - +S1/S2, regular Lungs - CTA Abd - +BS, soft, NT/ND Ext - no edema, chronic skin changes Labs and images reviewed. Large intraabdominal mass suspicious for malignancy discovered. Evidence of metastatic disease Assessment/Plan: -Admit to PCU -D5 drip, frequent blood sugar monitoring -Pulmonary consultation re: thoracentesis. Suspect malignant source -Palliative Care consulatation re: goals of care -Patient presently conditional code - no intubation or mechanical ventilation. Family is aware of severity of patient's condition and poor prognosis. They are to return to the hospital shortly for a more detailed conversation re: goals of care -Remainder of plan as above (1) COPD (chronic obstructive pulmonary disease) COPD type: unspecified COPD Qualified Code(s): J44.9 - Chronic obstructive pulmonary disease, unspecified (2) Hypertension Hypertension type: essential hypertension Qualified Code(s): I10 - Essential (primary) hypertension
[2019-07-26] MEDS ORDERED: DEXTROSE 5% 1,000 ML IV SCH (06:30)
--- NOTE | 2019-07-26 06:41 | CT Scan Report ---
CT head/brain wo con CLINICAL HISTORY: Acute change in mental status COMPARISON STUDY: No previous studies for comparison. TECHNIQUE: Axial CT of the brain is performed from the vertex to the skull base. IV contrast was not administered for this examination. A dose lowering technique was utilized adhering to the principles of ALARA. CT DOSE: 3236.11 mGy.cm FINDINGS: No intra or extra-axial mass lesions are visualized. There is no CT evidence of acute cortical infarc tion. There is no evidence of midline shift. There is no acute hemorrhage. No calvarial fractures ar e visualized. There are patchy white matter hypodensities likely on a small vessel basis. There is an equivocal old left pontine infarct. There is no evidence of pathologic ventricular dilatation. There are suspected mastoid effusions.. There is motion degradation. IMPRESSION: 1. Motion degraded study 2. No acute intracranial findings ACT 112: Negative or not required by law. Electronically signed by: Alexander Fernandez M.D. 07/26/2019 6:40 AM
--- NOTE | 2019-07-26 07:32 | CT Scan Report ---
CT ANGIOGRAM OF THE CHEST CLINICAL HISTORY: Increasing shortness of breath. Possible pulmonary embolism. COMPARISON STUDY: September 19, 2016, chest x-ray dated July 25, 2019 TECHNIQUE: Following the IV administration of 118 mL of Optiray-320, CT angiogram of the thorax was p erformed from the thoracic inlet to the lung bases utilizing the pulmonary embolus protocol. Images a re reviewed in the axial, sagittal, and coronal planes. IV contrast was administered without complica tion. MIP imaging was performed. A dose lowering technique was utilized adhering to the principles o f ALARA. CT DOSE: FINDINGS: There is cholelithiasis. No pathologically enlarged axillary mediastinal or hilar lymph nodes were visualized. There is no evidence of thoracic aortic dilatation. Atheromatous changes are present within the thora cic aorta. There are coronary artery calcifications. There were no pulmonary artery filling defects to indicate acute pulmonary embolism. There are moderate bilateral pleural effusions. There are bilateral lower lobe compressive atelectatic changes. The examination is degraded due to motion artifact. IMPRESSION: 1. Motion degraded study 2. No evidence of acute pulmonary embolism 3. Moderate bilateral pleural effusions with compressive lower lobe atelectatic change 4. Cholelithiasis. ACT 112: Negative or not required by law. Electronically signed by: Alexander Fernandez M.D. 07/26/2019 7:31 AM
--- NOTE | 2019-07-26 08:20 | CT Scan Report ---
ABDOMEN AND PELVIS CT WITH IV CONTRAST HISTORY: Acute generalized abdominal distention with decreased appetite decreased appetite, abd dist ention TECHNIQUE: Multiaxial CT images of the abdomen and pelvis were performed following the IV administrat ion of 118 cc of Optiray 320, A dose lowering technique was utilized adhering to the principles of A JACINTA. COMPARISON STUDY: CTA chest of same day, CTA chest 09/19/2016 FINDINGS: Moderate left greater than right pleural effusions with dependent bibasilar consolidation suggestive of compressive atelectasis. The study is motion degraded. The study is also limited secondary to uppe r extremity positioning. Imaged inferior cardiac chambers are upper limits of normal in size with cor onary artery calcifications. Moderate to extensive pancreatic atrophy. Unremarkable spleen, adrenal g lands and liver. Cholelithiasis without CT evidence of acute cholecystitis. No biliary ductal dilatio n. Cortical thinning and parenchymal scarring of the inferior pole left kidney is noted with associated 5 mm parenchymal calcification. Bilateral renal hypodensities suggestive of cysts measure up to 2.4 c m on the left. Intermediate density indeterminate 2.1 m lesion of the superior pole right kidney, Tal nsfield unit measured at 51. The urinary bladder is compressed posteriorly from a large enhancing, pa rtially cystic and solid central pelvic mass which measures up to 10.0 x 13.2 x 14.4 cm. There are ad ditional separate enhancing lesions abutting the peritoneal reflections of the pelvis as seen on imag e 314 of series 10. The mass abuts and effaces the rectum without obstruction or intraluminal extensi on identified. Trace abdominal pelvic ascites. Enhancing tissue within the left hemipelvis may be a d isplaced uterus versus additional mass lesion. There is stranding and nodularity of the omentum with omental nodules measuring up to 4.8 x 1.9 cm on image 237 series 10. Prominent and enlarged retroperi toneal lymph nodes include a precaval 1.1 x 1.4 center lymph node on image 174 series 10. No bowel obstruction or definite bowel wall thickening. Retained enteric contrast of the right hemico porter. Mild gaseous distention of the transverse colon. The appendix is not definitively seen. Anasarca . Demineralized appearance of the bones. 25% anterior and superior endplate compression deformity of the T12 vertebral body is new from 09/19/2016 exam. Additional acute compression deformity at T10 with partially imaged acute compression deformity at T9 with moderate paravertebral edema and enhancement . IMPRESSION: 1. Large enhancing partially cystic and solid pelvic mass measuring up to 13.2 cm is compatible with neoplasm, likely ovarian in origin. 2. Omental and peritoneal carcinomatosis with enlarged retroperitoneal lymph nodes is suspicious for lymphatic metastasis. 3. Acute compression deformities at the T9 and T10 levels with moderate paravertebral edema and parav ertebral enhancing soft tissue is suspicious for osseous metastasis with pathologic fractures. Posttr aumatic or insufficiency fractures with reactive edema and enhancement is an additional differential consideration. 4. Age-indeterminate T12 compression deformity is new from 2017. 5. Cholelithiasis. 6. No bowel obstruction or bowel wall thickening. 7. Moderate pleural effusions with anasarca. ACT 112: Negative or not required by law. The above report was generated using voice recognition software. It may contain grammatical, syntax o r spelling errors. Electronically signed by: Marcel Toth M.D. 07/26/2019 8:19 AM
[2019-07-26] MEDS ORDERED: ONDANSETRON INJ 2 MG/ML 2 ML VIAL IV PRN (09:19)
[2019-07-26] MEDS ORDERED: GLUCOSE 40% GEL 15 GM TUBE PO PRN (09:19)
[2019-07-26] MEDS ORDERED: GLUCOSE 10 TABS/TUBE PO PRN (09:19)
[2019-07-26] MEDS ORDERED: CARBOHYDRATES FOR HYPOGLYCEMIA PO PRN (09:19)
[2019-07-26] MEDS ORDERED: GLUCAGON FOR INJ 1 MG VIAL SQ PRN (09:19)
[2019-07-26] MEDS ORDERED: FUROSEMIDE 20 MG in SYRINGE 0 ML IV ONE (09:45)
--- NOTE | 2019-07-26 09:45 | Communication Note ---
Date of Service: July 26, 2019 Discussed care with MATT Martínez who discussed with her brother. Given increasing hypoxia, shortness of breath and reduced consciousness. 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 She also reports they have been treating the patient for the last 2 weeks intermittently for hypoglycemic episodes using orange juice and candy etc... not reducing her insulin. Ok for trial of non-invasive ventilation including BiPAP if required. Ok to continue with active treatment for now including lab draws and IV meds. Not for intubation, thoracocentesis (even if life saving in short term). After discussion with Tanya who discussed it with her brother she is ok to make her mother not for resuscitation in the event of a cardiac arrest.
[2019-07-26] MEDS ORDERED: ALBUMIN 25% 50 ML with FUROSEMIDE 40 MG IV STA (09:56)
[2019-07-26] MEDS ORDERED: FUROSEMIDE 40 MG/4 ML VIAL IV ONE (09:58)
[2019-07-26] MEDS ORDERED: POTASSIUM CHLORIDE 20 MEQ TABCR PO SCH (10:00)
[2019-07-26 10:06] LABS: INR 1.2 (0.9-1.1); Prothrombin Time 12.1 Seconds (9.0-12.0)
[2019-07-26 10:24] LABS: iSTAT Arterial Blood Gas HCO3 33 meg/L (19-24); iSTAT Arterial Blood Gas pCO2 65 mmHg (35-46); iSTAT Arterial Blood Gas pH 7.32 (7.35-7.45); iSTAT Arterial Blood Gas pO2 71 mmHg (80-95); iSTAT Carbon Dioxide 35 mmol/L (24-31); iSTAT Sample Type Arterial
[2019-07-26 10:24] LABS: Base Excess ABG 6.2 mEq/L (-9-1.8); HCO3 ABG 32 mmol/L (19-24); Oxygen Saturation ABG 99.1 % (90-95); PCO2 ABG 54 mmHg (35-46); PO2 ABG 157 mmHg (80-95)
[2019-07-26 10:25] LABS: Allen Test Pos (Pos)
--- NOTE | 2019-07-26 10:36 | Electrocardiogram Report ---
Test Reason : Blood Pressure : / mmHG Vent. Rate : 114 BPM Atrial Rate : 114 BPM P-R Int : 144 ms QRS Dur : 072 ms QT Int : 330 ms P-R-T Axes : 093 040 067 degrees QTc Int : 454 ms Poor data quality, interpretation may be adversely affected Sinus tachycardia Septal infarct (cited on or before 25-JUL-2019) Abnormal ECG When compared with ECG of 25-JUL-2019 00:10, No significant change was found Confirmed by Rayray Kim ([id number]) on 07/26/2019 10:35:31 AM Referred By: REFERRED SELF Confirmed By:Rayray Kim
[2019-07-26] MEDS: DEXTROSE 50% 50 ML SYRINGE IV PRN ×3 (11:35→14:25)
[2019-07-26] MEDS: POTASSIUM CHLORIDE / WTR 10 MEQ/100 ML PLCT IV SCH ×4 (12:56→17:39)
--- NOTE | 2019-07-26 13:19 | Palliative Care Consultation ---
Date of Consultation July 26, 2019 Assessment & Plan (1) Goals of care, counseling/discussion: -74 year old female patient with PMH COPD, type 2 diabetes mellitus on evening insulin, CHF and heart failure with reduced ejection fraction of 30 to 35%, hyperlipidemia, hypertension who presented with a glucose of 5 and new abdominal mass found on imaging. Hypoglycemia reversed in ED. Patient apparently has had other episodes of hypoglycemia for which she has visited the ED for. Her family at bedside also reported that she has been doing poorly for the last week-- increased weakness, poor appetite, intermittent diarrhea, inability to walk, and recurrent hypoglycemia. CT abdomen shows a 10.8 x 13.9 x 11.1 cm new abdominal mass suspicious for ovarian neoplasm. Also multiple new T10-T12 vertebral compression fractures appreciated suspicious for pathologic fracture. Patient's condition quickly deteriorated-- lethargy and mottling of BLE. Granddaughter made patient conditional code and stated show would come to the hospital with her mother (patient's daughter) to further discuss goals of care. Attending physician then discussed with patient's daughter, who discussed with her brother as well, and decision was made to make patient DNR/DNI. Okay to continue current treatment and trial of Bipap. She is apparently understanding of the possible new malignancy and states that patient has not wanted to see a doctor for the last two years. She doesn't believe patient would want heroic m easures. Palliative care is consulted to further discuss goals of care. -Patient seen by palliative MD this afternoon. She is lethargic on bipap, having increased respiratory distress, extremities mottling and cool to the touch. No family at bedside. -Attending physician discussed with family this morning. Again, continue current management but no escalation in care. -Palliative care is following and will engage with family as needed to provide support in medical decision making. Will continue to reassess for improvement or decline in patient condition. -Prognosis is very poor. PPS 10%. (2) Heart failure with reduced ejection fraction: (3) Abdominal mass: (4) Hypoglycemia: Supervising Physician Co-Signing Physician Notes Chart reviewed, patient seen and examined. Collaborated with ROBBY Ayers as well as attending physician Dr. Vo. Collaborated with nursing staff. PE: Patient unresponsive to voice or touch HEENT: Unable to assess Respirations: Increased work of breathing-on BiPAP CV: Tachycardic, no edema Abdomen: Soft, no grimace on palpation Neuro: Unresponsive to voice or touch Skin: Lower extremities are warm to touch with the exception of the toes that are cool as well as significantly mottled. Agree with above note, assessment and plan as per ROBBY Ayers. Will continue to follow and provide support to patient's daughter. History of Present Illness Attending Physician: Gregory Vo MD History of Present Illness This 74 year old female patient with PMH COPD, type 2 diabetes mellitus on evening insulin, CHF and heart failure with reduced ejection fraction of 30 to 35%, hyperlipidemia, hypertension who presented with a glucose of 5 and new abdominal mass found on imaging. Hypoglycemia reversed in ED. Patient apparently has had other episodes of hypoglycemia for which she has visited the ED for. Her family at bedside also reported that she has been doing poorly for the last week-- increased weakness, poor appetite, intermittent diarrhea, inability to walk, and recurrent hypoglycemia. CT abdomen shows a 10.8 x 13.9 x 11.1 cm new abdominal mass suspicious for ovarian neoplasm. Also multiple new T10-T12 vertebral compression fractures appreciated suspicious for pathologic fracture. Patient's condition quickly deteriorated-- lethargy and mottling of BLE. Granddaughter made patient conditional code and stated show would come to the hospital with her mother (patient's daughter) to further discuss goals of care. Attending physician then discussed with patient's daughter, who discussed with her brother as well, and decision was made to make patient DNR/DNI. Okay to continue current treatment and trial of Bipap. She is apparently understanding of the possible new malignancy and states that patient has not wanted to see a doctor for the last two years. She doesn't believe patient would want heroic measures. Palliative care is consulted to further discuss goals of care. Thank you kindly for this consult. Palliative care team will follow as needed. Allergies Allergy/AdvReac Type Severity Reaction Status Date / Time No Known Allergies Allergy Unverified 07/26/19 03:38 Home Medications Home Medications Medication Instructions Recorded Confirmed Type insulin syringe-needle U-100 0.5 See Rx Instructions .ROUTE 03/04/19 07/26/19 Rx mL 31 gauge x 5/16" .COMPLEX #90 unspecified amlodipine 5 mg tablet 5 mg PO DAILY #30 tab 06/15/19 07/26/19 Rx furosemide 40 mg tablet 20 mg PO DAILY #15 tab 06/15/19 07/26/19 Rx ipratropium 20 mcg-albuterol 100 1 puffs INH QID #4 gm MDD 6 06/15/19 07/26/19 Rx mcg/actuation mist for inhalation puffs/day metoprolol succinate 50 mg 50 mg PO DAILY #30 tab 06/15/19 07/26/19 Rx tablet,extended release 24 hr potassium chloride 10 mEq 10 meq PO BID #60 cap 06/15/19 07/26/19 Rx capsule,extended release albuterol sulfate 1 - 2 puff INHALATION DIRECTED 07/25/19 07/26/19 History PRN atorvastatin 40 mg PO DAILY 07/25/19 07/26/19 History insulin detemir U-100 [Levemir 43 unit SUBCUT DAILY 07/26/19 07/26/19 History U-100 Insulin] Patient History Medical History Leg ulcer Tobacco abuse (Acute) Surgical History No history of previous surgery Family History Other No history of previous surgery Social History Preferred Language: Spanish Communication Ability: Impaired Garment Tag Stringer Required: No Beliefs That Will Affect Care: None Current Living Situation: Family Current Living Situation Comment: lives with son sandi Other Information That Helps Us Care for You: No Feels Safe at Home: Yes Safety Concerns: Feels Safe At This Time Smoking Status: Current every day smoker Tobacco Type: cigarettes ; Do You Dip or Chew Tobacco: No ; Second Hand Exposure: Yes ; Tobacco Cessation Education Requested by Patient: No Hx Alcohol Use: No Hx Substance Use: No Results & Data Vital Signs (Past 12 Hours) Vital Signs Temp Pulse Pulse Resp BP BP Pulse Ox 07/26/19 11:58 36.9 C 122 H 22 167/85 H 78 L 07/26/19 10:41 120 H 27 H 100 07/26/19 07:13 36.3 C L 115 H 24 166/102 H 99 07/26/19 06:47 110 H 32 H 176/111 H 94 07/26/19 06:12 117 H 28 H 191/134 H 96 07/26/19 04:56 104 H 26 H 193/112 H 99 07/26/19 03:36 104 H 35 H 98 07/26/19 03:23 36.4 C L 116 H 28 H 162/109 H 90 Coding Level of Care Code 35950 Inpt Consult Level 2 Diagnoses Goals of care, counseling/discussion Z71.89 Heart failure with reduced ejection fraction I50.20 Abdominal mass R19.00 Hypoglycemia E16.2 Time Spent (min) 50 Time Spent Midlevel A total of 30 minutes spent by this CUSTOMER SERVICE DRIVER in reviewing chart, speaking attending and palliative physicians regarding patient condition, goals and plan of care. Attending Total time spent 20 minutes with greater than 50% of the time spent at bedside assessing patient's current level of comfort as well as collaborating with attending physician.
[2019-07-26 13:36] LABS: BUN Creatinine Ratio 24.9 (10-20); Calcium 8.3 mg/dl (8.5-10.1); Creatinine Clr Calc Pharmacy 81.5 ml/min; Est GFR (African American) 108.6; Est GFR (Non-African American) 93.7; Potassium 3.2 mmol/L (3.5-5.1)
[2019-07-26] MEDS ORDERED: GLUCAGON FOR INJ 1 MG VIAL SQ STA (13:58)
[2019-07-26 15:14] LABS: Partial Thromboplastin Ratio 1.2; Partial Thromboplastin Time 33.6 Seconds (21.0-31.0)
[2019-07-26 17:49] LABS: Appearance Urine Cloudy (Clear); Bacteria Urine Automated 2+ (Negative); Bilirubin Urine Negative (Negative); Blood Urine 3+ (Negative); Color Urine Dark Yellow; Glucose Urine UA Negative (Negative); Ketones Urine Negative (Negative); Leukocyte Esterase Urine 2+ (Negative); Nitrite Urine Positive (Negative); Protein Urine 1+ (Negative); RBC Urine Automated >30 /hpf (0-4); Specific Gravity Urine 1.034 (1.000-1.030); Urobilinogen Urine Negative (Negative); WBC Urine Automated >30 /hpf (0-5)
[2019-07-26 18:46] LABS: Allen Test Pos (Pos); HCO3 ABG 31 mmol/L (19-24); Oxygen Saturation ABG 95.6 % (90-95); PCO2 ABG 42 mmHg (35-46); PO2 ABG 74 mmHg (80-95); pH ABG 7.49 (7.35-7.45)
[2019-07-26 19:11] LABS: BUN Creatinine Ratio 23.9 (10-20); Calcium 7.6 mg/dl (8.5-10.1); Creatinine Clr Calc Pharmacy 77.3 ml/min; Est GFR (African American) 106.7; Est GFR (Non-African American) 92.1; Troponin I 0.111 ng/ml (0-0.045)
[2019-07-26 19:17] LABS: Potassium 4.1 mmol/L (3.5-5.1)
[2019-07-26] MEDS ORDERED: ASPIRIN 300 MG SUPP PR ONE (19:38)
[2019-07-26] MEDS ORDERED: VANCOMYCIN CONSULT ACTIVE PRN (19:40)
[2019-07-26] MEDS ORDERED: ACETAMINOPHEN 1,000 MG/100 ML VIAL IV PRN (19:44)
[2019-07-26] MEDS ORDERED: cefTRIAXone SODIUM 2,000 MG in DEXTROSE 5% 50 ML IV SCH (19:45)
[2019-07-26] MEDS ORDERED: VANCOMYCIN HCL 1,500 MG in SODIUM CHLORIDE 0.9% 500 ML IV ONE (20:00)
[2019-07-26] MEDS: CEFEPIME 2,000 MG in SYRINGE 7.5 ML IV SCH (20:03)
--- NOTE | 2019-07-26 20:04 | Communication Note ---
Date of Service: July 26, 2019 Patient remained encephalopathic without a good explanation throughout the day other than fluctuating glucose levels. Since this started acutely after coming out of CT concern this morning that she was lying flat during CT causing redistribution of her pleural effusions making her hypoxic. Patient now febrile with grossly positive UA for infection, WBC WNL. Meets criteria for sepsis. Blood cultures x2 stat now. Start cefepime then vancomycin. MRSA nasal swab and procalcitonin to assess for PNA given significant atelectasis associated with pleural effusions, repeat CXR in AM. Troponin elevation likely due to demand-ischemia. Not for intervention given current life threatening illness. Will give DC ASA 300mg ONE and trend troponin. Repeat EKG in AM. Given good PaO2 and PaCO2 levels and now with alternate cause of continuing encephalopathy, ok to hold BiPAP and switch to oxymask overnight with continuous pulse ox. Updated daughter Tanya over the phone and all questions answered. Handed over to overnight physician and resident.
[2019-07-26] MEDS: HEPARIN SOD 5,000 UNIT/0.5 ML VIAL SQ SCH (20:10)
[2019-07-26] MEDS: ALBUMIN 25% 50 ML with FUROSEMIDE 40 MG IV SCH (20:35)
[2019-07-26] MEDS ORDERED: FUROSEMIDE 40 MG in SYRINGE 0 ML IV SCH (21:00)
--- NOTE | 2019-07-26 22:31 | Pharmacy Report ---
Pharmacy Abx Initial Consult - Date of Service July 26, 2019 - Pharmacy Dosing Scope Date of Consult: 07/26/19 Consultation requested by: Dr. Vo Pharmacy is consulted to initiate Vancomycin IV dosing therapy, order appropriate labs and adjust drug dose/frequency. - Subjective The patient is a 74 year old F admitted on 07/26/19 06:47. - Objective Height: 5 ft Weight: 71.4 kg Vital Signs (Past 12hrs): Vital Signs Temp Pulse Pulse Resp BP Pulse Ox 07/26/19 21:38 37.9 C H 07/26/19 20:25 39.2 C H 125 H 22 132/66 96 07/26/19 19:22 123 H 29 H 96 07/26/19 15:20 37.6 C H 125 H 20 119/65 96 07/26/19 15:10 120 H 26 H 96 07/26/19 11:58 36.9 C 122 H 22 167/85 H 78 L 07/26/19 10:41 120 H 27 H 100 Lab Results (24hrs): Laboratory Tests (24 Hours) 07/26/19 07/26/19 07/26/19 19:54 18:34 12:51 WBC Neut # (Auto) Creatinine 0.58 L 0.55 L Est Cr Clr Drug Dosing 77.3 81.5 Procalcitonin 0.46 07/26/19 07/26/19 03:35 03:35 WBC 8.79 Neut # (Auto) 7.44 H Creatinine 0.48 L Est Cr Clr Drug Dosing 94.0 Procalcitonin Micro Results: 07/26/19 19:54 Aerobic Blood Culture - Pending Blood Anaerobic Blood Culture - Pending 07/26/19 19:56 Aerobic Blood Culture - Pending Blood Anaerobic Blood Culture - Pending 07/26/19 17:30 Urine Culture - Pending Urine,Straight Cath - Assessment & Plan Assessment 74 year old F presenting with abdominal mass and severe hypoglycemia. Patient has positive UA and fever. Urine culture and blood culture x 2 pending. Plan Vancomycin for treatment of Empiric sepsis Vancomycin IV * Estimated PK Parameters: Vd 0.64 L/kg, Siva 0.069 hr-1, t1/2 10 hr * Loading dose: 1500 mg (21 mg/kg) * Maintenance dose: 1000 mg IV (14 mg/kg) every 12 hours * Goal trough level for Empiric: 15 mcg/mL * Trough level ordered for 07/28/19 at 0730 Patient also started on Cefepime 2gm IV q8 Pharmacy will continue to follow and will adjust dose/frequency as necessary. Thank you.
[2019-07-27] MEDS: CEFEPIME 2,000 MG in SYRINGE 7.5 ML IV SCH ×2 (03:42→11:34)
[2019-07-27 05:48] LABS: Estimated Average Glucose 91 mg/dl; Hemoglobin A1C 4.8 % (4.5-5.6)
[2019-07-27 06:24] LABS: Eosinophils # (auto) 0.01 K/uL (0-0.5); Eosinophils % (auto) 0.1 %; Hemoglobin 11.4 g/dL (12.0-16.0); Immature Granulocytes # (auto) 0.03 K/uL (0.00-0.02); Immature Granulocytes % (auto) 0.3 %; Lymphocytes # (auto) 0.53 K/uL (1.2-3.4); Lymphocytes % (auto) 5.9 %; Mean Corpuscular Hemoglobin 29.4 pg (25-34); Mean Corpuscular Hgb Conc 31.7 g/dL (32-36); Mean Corpuscular Volume 92.8 fL (80-100); Mean Platelet Volume 9.1 fL (7.4-10.4); Monocytes # (auto) 1.13 K/uL (0.11-0.59); Monocytes % (auto) 12.7 %; Neutrophils # (auto) 7.23 K/uL (1.4-6.5); Platelet Count 246 K/uL (130-400); RDW Coefficient of Variation 16.8 % (11.5-14.5); RDW Standard Deviation 55.1 fL (36.4-46.3); Red Blood Count 3.88 M/uL (4.2-5.4); White Blood Count 8.93 K/uL (4.8-10.8)
[2019-07-27 06:56] LABS: Albumin Level 2.2 gm/dl (3.4-5.0); BUN Creatinine Ratio 30.1 (10-20); Calcium 8.1 mg/dl (8.5-10.1); Creatinine Clr Calc Pharmacy 84.4 ml/min; Est GFR (African American) 109.9; Est GFR (Non-African American) 94.9; Potassium 3.5 mmol/L (3.5-5.1)
[2019-07-27 07:03] LABS: Albumin Globulin Ratio 0.5 (0.9-2); Bilirubin,Total 1.5 mg/dl (0.2-1); Globulin 4.4 gm/dl (2.5-4.0); Phosphorus 2.6 mg/dl (2.5-4.9); Total Protein 6.6 gm/dl (6.4-8.2); Troponin I 0.072 ng/ml (0-0.045)
--- NOTE | 2019-07-27 07:23 | XRay Report ---
XR chest 1V portable HISTORY: shortness of breath COMPARISON: Chest 07/25/2019. FINDINGS: Small bilateral pleural effusions and bibasilar densities persist. There is mild asymmetric pulmonary vascular congestion. No pneumothorax. The heart remains normal in size. IMPRESSION: No change in the pulmonary vascular congestion and small bilateral pleural effusions. ACT 112: Negative or not required by law. Electronically signed by: Alvarado Moyer M.D. 07/27/2019 7:22 AM
[2019-07-27] MEDS ORDERED: VANCOMYCIN HCL 1,000 MG in SODIUM CHLORIDE 0.9% 250 ML IV SCH (08:00)
[2019-07-27] MEDS: HEPARIN SOD 5,000 UNIT/0.5 ML VIAL SQ SCH (08:55)
[2019-07-27] MEDS: ALBUMIN 25% 50 ML with FUROSEMIDE 40 MG IV SCH (09:35)
[2019-07-27 10:37] LABS: Base Excess ABG 5.6 mEq/L (-9-1.8); HCO3 ABG 32 mmol/L (19-24); Oxygen Saturation ABG 98.3 % (90-95); PCO2 ABG 59 mmHg (35-46); PO2 ABG 122 mmHg (80-95); pH ABG 7.36 (7.35-7.45)
[2019-07-27 10:38] LABS: Allen Test Pos (Pos)
--- NOTE | 2019-07-27 12:41 | Hospitalist Progress Note ---
Date of Service July 27, 2019 Assessment & Plan (1) Goals of care, counseling/discussion: Discussed care with daughter Tanya over the phone and in person with Dr Hagen. Given patient lack of improvement this morning and more gasping for breath with metastatic neoplasm of unknown primary and lack of reversible acute causes for her encephalopathy at this stage all in agreement that the patient would have wanted to be just made comfortable. Morphine ordered by Dr Souza for patient's excessive shortness of breath. Goal is for comfort only. Will avoid further lab draws or unnecessary medications. (2) Abdominal mass: (3) Hypoglycemia: (4) Tobacco abuse: (5) Hypertension: (6) Hyperlipidemia: (7) PAD (peripheral artery disease): (8) CHF (congestive heart failure): (9) COPD (chronic obstructive pulmonary disease): (10) Diabetes: (11) Heart failure with reduced ejection fraction: Admission and Anticipated Discharge Date Admission Date: July 26, 2019 Subjective Patient having abnormal breathing pattern this morning with slowed breathing and prolonged expiratory phase with labored breathing. No witnessed apnea. Unable to wake to voice or noxious stimuli. Intermittent groaning. Discussed with her daughter (Tanya) who came to see patient at bedside. Expressed wish for comfort care at this time. ABG this morning shows no real reversible lung or metabolic cause for her continued encephalopathy. 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 Discussed care with Dr Hagen at bedside who placed orders for morphine for current respiratory distress. Review of Systems Review of Systems: Unobtainable due to reduced consciousness Physical Exam Constitutional: + acute distress and + cachectic Respiratory: + respiratory distress, + labored breathing, + retractions and + uses accessory muscles Auscultation: + rhonchi (b/l) Cardiovascular: Rate/Rhythm: regular rhythm and + tachycardic Heart Sounds: no murmur Extremities: normal capillary refill Gastrointestinal (Abdomen): Inspection/Auscultation: + abdomen distended Percussion/Palpation: abdomen soft Skin: no rashes, warm and dry Neurologic: + not awake Psychiatric: Orientation: + not alert Results & Data Results & Data ([facility]) Vital Signs (Past 12 Hours) Vital Signs Temp Pulse Pulse Resp BP Pulse Ox 07/27/19 10:48 36.5 C 108 H 25 H 156/80 H 100 07/27/19 07:19 36.7 C 110 H 24 154/83 H 100 07/27/19 07:00 107 H 07/27/19 04:38 36.7 C 107 H 20 160/81 H 98 PG Care Time/CCT Total # of Minutes Spent Total Time Spent: 65 Total Time Spent with Patient: Total time spent is greater than 50% in coordination of care (as documented) at patient's floor/unit and/or counseling patient: Coding Level of Care Code 80475 Subseq Hosp Care Lvl 3 Diagnoses Goals of care, counseling/discussion Z71.89 Abdominal mass R19.00 Hypoglycemia E16.2 Tobacco abuse Z72.0 Hypertension I10 Hypertension type: essential hypertension Hyperlipidemia E78.5 PAD (peripheral artery disease) I73.9 CHF (congestive heart failure) I50.9 COPD (chronic obstructive pulmonary disease) J44.9 COPD type: unspecified COPD Diabetes E11.9 Heart failure with reduced ejection fraction I50.20 (1) COPD (chronic obstructive pulmonary disease) COPD type: unspecified COPD Qualified Code(s): J44.9 - Chronic obstructive pulmonary disease, unspecified (2) Hypertension Hypertension type: essential hypertension Qualified Code(s): I10 - Essential (primary) hypertension
[2019-07-27] MEDS ORDERED: MoRPHine SULFATE 2 MG/ML CARP ONE (12:49)
--- NOTE | 2019-07-27 13:31 | Electrocardiogram Report ---
Test Reason : Blood Pressure : / mmHG Vent. Rate : 108 BPM Atrial Rate : 108 BPM P-R Int : 174 ms QRS Dur : 072 ms QT Int : 338 ms P-R-T Axes : 047 041 064 degrees QTc Int : 452 ms Sinus tachycardia Nonspecific ST and T wave abnormality Abnormal ECG When compared with ECG of 26-JUL-2019 03:19, Criteria for Septal infarct are no longer Present Confirmed by Rayray Kim ([id number]) on 07/27/2019 1:30:51 PM Referred By: REFERRED SELF Confirmed By:Rayray Kim
--- NOTE | 2019-07-27 14:59 | Palliative Care Progress Note ---
Date of Service July 27, 2019 Assessment & Plan (1) Goals of care, counseling/discussion: -74 year old female patient with PMH COPD, type 2 diabetes mellitus on evening insulin, CHF and heart failure with reduced ejection fraction of 30 to 35%, hyperlipidemia, hypertension who presented with a glucose of 5 and new abdominal mass found on imaging. Hypoglycemia reversed in ED. Patient apparently has had other episodes of hypoglycemia for which she has visited the ED for. Her family at bedside also reported that she has been doing poorly for the last week-- increased weakness, poor appetite, intermittent diarrhea, inability to walk, and recurrent hypoglycemia. CT abdomen shows a 10.8 x 13.9 x 11.1 cm new abdominal mass suspicious for ovarian neoplasm. Also multiple new T10-T12 vertebral compression fractures appreciated suspicious for pathologic fracture. Patient's condition quickly deteriorated-- lethargy and mottling of BLE. Granddaughter made patient conditional code and stated show would come to the hospital with her mother (patient's daughter) to further discuss goals of care. Attending physician then discussed with patient's daughter, who discussed with her brother as well, and decision was made to make patient DNR/DNI. Palliative care is consulted to further discuss goals of care. -Patient seen this afternoon, patient's daughter at bedside. Patient's son will be in to visit later this afternoon. She is unresponsive, on bipap, having increased work of breathing-no significant change with IV morphine. -Family wishes to continue current management but no escalation in care. -Palliative care is following and will engage with family as needed to provide support in medical decision making. Will continue to reassess for improvement or decline in patient condition. -Prognosis is very poor. PPS 10%. (2) Heart failure with reduced ejection fraction: (3) Abdominal mass: (4) Hypoglycemia: Subjective Patient seen and examined, patient's daughter at bedside. Patient's family allowed to visit due to patient being end-of-life. Patient on BiPAP with increased work of breathing-gave a single dose of IV morphine at 2 mg-did not affect her respiration or work of breathing to any significant extent. Spoke with daughter at length at bedside-provided support, answered questions and addressed her concerns. Patient not mottled this a.m., both feet warm and bilateral feet are reddish in coloration Review of Systems Review of Systems: Unobtainable due to cognitive status Physical Exam Physical Exam: PE: Patient unresponsive to voice or touch Respirations: Increased respiratory rate and work of breathing, no grimace or signs of discomfort CV: Tachycardic, no edema Abdomen: Soft, no grimace with palpation Skin: Warm to touch, feet no reddish in coloration Neuro: Unresponsive. Results & Data Vital Signs (Past 12 Hours) Vital Signs Temp Pulse Pulse Resp BP Pulse Ox 07/27/19 10:48 97.7 F 108 H 25 H 156/80 H 100 07/27/19 07:19 98.1 F 110 H 24 154/83 H 100 07/27/19 07:00 107 H 07/27/19 04:38 98.1 F 107 H 20 160/81 H 98 PG Care Time/CCT Total # of Minutes Spent Total Time Spent with Patient: Total time spent 45 minutes with greater than 50% of the time spent at bedside assessing patient's current comfort level assessing response to morphine as well as discussing end-of-life issues at length with daughter at bedside. Coding Level of Care Code 86274 Subseq Hosp Care Lvl 3 Diagnoses Goals of care, counseling/discussion Z71.89 Heart failure with reduced ejection fraction I50.20 Abdominal mass R19.00 Hypoglycemia E16.2 Time Spent (min) 45
[2019-07-27] MEDS: MoRPHine SULFATE 2 MG/ML CARP IV PRN ×3 (15:31→21:54)
[2019-07-27] MEDS ORDERED: LORazepam 0.5 MG/1 ML VIAL IV PRN (21:04)
[2019-07-27] MEDS ORDERED: ACETAMINOPHEN 650 MG SUPP PR PRN (21:04)
[2019-07-27] MEDS ORDERED: ONDANSETRON INJ 2 MG/ML 2 ML VIAL IV PRN (21:04)
[2019-07-27] MEDS ORDERED: ONDANSETRON 4 MG OD TAB SL PRN (21:04)
[2019-07-27] MEDS ORDERED: LORazepam 0.5 MG TAB PO PRN (21:04)
[2019-07-27] MEDS ORDERED: ATROPINE SULFATE 1% OP SOLN 2 ML BTL SL PRN (21:04)
[2019-07-28] MEDS: MoRPHine SULFATE 2 MG/ML CARP IV PRN ×2 (02:16→09:24)
[2019-07-28] MEDS ORDERED: VANCOMYCIN TROUGH ONE (07:30)
[2019-07-28] MEDS ORDERED: ALBUMIN 25% 50 ML with FUROSEMIDE 40 MG IV SCH (09:00)
--- NOTE | 2019-07-28 13:28 | Death Pronouncement Note ---
Date of Service July 28, 2019 Pronouncement Note Admission Date Admission Date: July 26, 2019 Date and Time of Date of : 07/28/19 Time of : 13:12 PCOD Preliminary cause of : Metastatic malignant neoplasm of unknown primary site Contributing Factors (1) Goals of care, counseling/discussion: (2) Abdominal mass: (3) Hypoglycemia: (4) Tobacco abuse: (5) Hypertension: (6) Hyperlipidemia: (7) PAD (peripheral artery disease): (8) CHF (congestive heart failure): (9) COPD (chronic obstructive pulmonary disease): (10) Diabetes: (11) Heart failure with reduced ejection fraction: Hospital Course Hospital Course: Admission for hypoglycemia but encephalopathic since admission and diagnosed with metastatic malignant neoplasm of unknown primary. Made for comfort care after lack of response to reversible causes. Summary Additional details: Patient on comfort care due to Metastatic malignant neoplasm of unknown primary, consistent with patient's prior wishes. Additional Data Confirmation of : no pulse, no respirations, no heart sounds and pupils fixed and dilated Family: contacted (Tanya contacted by RN) Attending/PCP notified?: Yes Attending physician: Gregory Vo MD Was code activated?: No Autopsy requested?: No deportation examiner notified?: No Organ bank notified?: No Advance directives: No Coding Level of Care Code D/C Day Management >30 mins Diagnoses Goals of care, counseling/discussion Z71.89 Abdominal mass R19.00 Hypoglycemia E16.2 Tobacco abuse Z72.0 Hypertension I10 Hypertension type: essential hypertension Hyperlipidemia E78.5 PAD (peripheral artery disease) I73.9 CHF (congestive heart failure) I50.9 COPD (chronic obstructive pulmonary disease) J44.9 COPD type: unspecified COPD Diabetes E11.9 Heart failure with reduced ejection fraction I50.20
--- NOTE | 2019-07-28 13:31 | Hospitalist Progress Note ---
Date of Service July 28, 2019 Assessment & Plan (1) Goals of care, counseling/discussion: Continue comfort care. Morphine for respiratory distress, Lorazepam for agitation, atropine for upper airway secretions (2) Abdominal mass: (3) Hypoglycemia: (4) Tobacco abuse: (5) Hypertension: (6) Hyperlipidemia: (7) PAD (peripheral artery disease): (8) CHF (congestive heart failure): (9) COPD (chronic obstructive pulmonary disease): (10) Diabetes: (11) Heart failure with reduced ejection fraction: Admission and Anticipated Discharge Date Admission Date: July 26, 2019 Subjective Patient on comfort care measures. No respiratory distress or agitation. No current upper airway sounds. Unresponsive to voice. Review of Systems Review of Systems: Unobtainable due to reduced consciousness Physical Exam Constitutional: + cachectic; no acute distress Respiratory: no respiratory distress Cardiovascular: Extremities: + edema (abdomen and back) Gastrointestinal (Abdomen): Inspection/Auscultation: + abdomen distended Percussion/Palpation: abdomen soft Neurologic: + not awake Psychiatric: Orientation: + not alert PG Care Time/CCT Total # of Minutes Spent Total Time Spent with Patient: Total time spent is greater than 50% in coordination of care (as documented) at patient's floor/unit and/or counseling patient: Coding Level of Care Code 92383 Subseq Hosp Care Lvl 1 Diagnoses Goals of care, counseling/discussion Z71.89 Abdominal mass R19.00 Hypoglycemia E16.2 Tobacco abuse Z72.0 Hypertension I10 Hypertension type: essential hypertension Hyperlipidemia E78.5 PAD (peripheral artery disease) I73.9 CHF (congestive heart failure) I50.9 COPD (chronic obstructive pulmonary disease) J44.9 COPD type: unspecified COPD Diabetes E11.9 Heart failure with reduced ejection fraction I50.20 (1) Hypertension Hypertension type: essential hypertension Qualified Code(s): I10 - Essential (primary) hypertension (2) COPD (chronic obstructive pulmonary disease) COPD type: unspecified COPD Qualified Code(s): J44.9 - Chronic obstructive pulmonary disease, unspecified
--- NOTE | 2019-07-28 14:41 | Discharge Summary ---
Date of Service July 28, 2019 Admission HPI Per Admitting Provider Jalyn Giles a 74-year-old female with past medical history of tobacco abuse, hypertension, hyperlipidemia, COPD, diabetes mellitus, CHF, and heart failure with reduced ejection fraction of 30-35% who presents to the emergency department by ambulance after an episode of severe hypoglycemia to 5. She has had similar episodes in the past week, and was seen in the emergency department last night for a hypoglycemic episode to the 30s which improved with dextrose administration but left AMA prior to further work-up. She is seen at bedside with her granddaughter, at time of visit patient is not able to answer questions due to altered mental status. Per patient's daughter she has been in "bad shape "for least a week. She has become extremely weak, cannot walk, and has had blood sugars frequently going down to the 30s in the evenings. Patient is on insulin detemir 43 units at night, per her family she takes this reliably in the evening and the type of insulin, lot of insulin, dose of insulin, and timing of her insulin have not changed in the past weeks. Her granddaughter also endorses that Jalyn seems to have poor appetite, is unsure if she has had weight change, and has had intermittent diarrhea. She does not think her grandmother has had any other symptoms, and to her knowledge has not had new fever, chills, cough, recent respiratory illness, or other symptoms. Remaining history limited by mental status Medical history: Reviewed in EMR Medications: Reviewed in EMR. Of note patient's granddaughter reports that Jalyn takes her insulin reliably at night, takes her inhalers regularly, but has not taken her other oral medications including amlodipine, atorvastatin, metoprolol, and Lasix for several weeks. Surgical history: Reviewed Allergies: No known drug allergies Social: Jalyn lives at her home with her son. Per her granddaughter her decision maker would probably be her daughter who is coming in the hospital to see her, although she does not have a formal medical power of erisa attorney. Granddaughter reports that she does not drink alcohol, or use recreational drugs. Granddaughter reports that she smokes at least a pack a day, but stopped smoking about a week ago. CODE STATUS: Conditional code. Per patient's daughter/granddaughter Jalyn would not want intubation for any reason including in code context or for declining respiratory status. Would want trial of CPR, shock, and ACLS medications. Principal Diagnosis Metastatic malignant neoplasm of unknown primary site Discharge Exam see progress note from July 27 Discharge Data Allergies Allergy/AdvReac Type Severity Reaction Status Date / Time No Known Allergies Allergy Unverified 07/26/19 03:38 Consultations 07/26/19 06:54 ED Decision to Admit Stat 07/26/19 09:19 Consult Palliative Care Routine 07/27/19 21:04 Consult Case Management - Discharge Planning Routine Ordered Studies 07/26/19 03:27 CT angio chest PE protocol Urgent CT head/brain wo con Urgent 07/26/19 04:38 CT abd pelvis IV con only Urgent Hospital Course (1) Goals of care, counseling/discussion: Jalyn Giles is a 74 year old female admission to [facility] for hypoglycemia and toxic-metabolic encephalopathy. Unfortunately she was diagnosed with a large abdominal mass with peritoneal carcinomatosis and concern for vertebral metastatic disease. Given lack of improvement with antibiotics for possible infection and patient's prior wishes she was transitioned to comfort care measures as per family wishes. She on July 28 2019. (2) Abdominal mass: (3) Hypoglycemia: (4) Tobacco abuse: (5) Hypertension: (6) Hyperlipidemia: (7) PAD (peripheral artery disease): (8) CHF (congestive heart failure): (9) COPD (chronic obstructive pulmonary disease): (10) Diabetes: (11) Heart failure with reduced ejection fraction: Total Time Total Time Spent Total Time Spent (In Minutes): 15 Discharge Plan Discharge Items Patient Disposition: Reason For Visit: Hypoglycemia Discharge Diagnosis: Metastatic malignant neoplasm of unknown primary site Follow-up/Referrals: Ekta Gray CRNP [Primary Care Provider] - Addtl Attending Provider Instructions: Stand-Alone Forms: My [facility] Admission Data Admit Date/Time: 07/26/19 06:47 Other DC Date/Time DO NOT enter until pt leaves facility: 07/28/19 15:06 Coding Level of Care Code D/C Day Management <30 mins Diagnoses Goals of care, counseling/discussion Z71.89 Abdominal mass R19.00 Hypoglycemia E16.2 Tobacco abuse Z72.0 Hypertension I10 Hypertension type: essential hypertension Hyperlipidemia E78.5 PAD (peripheral artery disease) I73.9 CHF (congestive heart failure) I50.9 COPD (chronic obstructive pulmonary disease) J44.9 COPD type: unspecified COPD Diabetes E11.9 Heart failure with reduced ejection fraction I50.20
--- NOTE | 2019-08-02 08:01 | Coding Query ---
CODING QUERY To promote full compliance with coding requirements relating to patient care, provider participation is requested in all cases of medical records coder uncertainty. Please assist us with the question(s) below: Coding Question: Both Toxic and Metabolic Encephalopathy were dictated on the Discharge Summary, per coding guidelines, they cannot be coded together. Please specify if the patient has Metabolic or Toxic Encephalopathy to the best of your knowledge. Thank you so much for your help on this! Have a great day! ( ) Toxic encephalopathy, POA (X) Metabolic encephalopathy, POA ( ) Other, explain Thank you! Roxann Ellison Principal Diagnosis: "that condition established after study, to be chiefly responsible for occasioning the admission of the patient to the hospital for care." Co-Existing Principal Diagnosis: "when two or more diagnoses equally meet the criteria for principal diagnosis as determined by the circumstances of admission, diagnostic work up, and/or therapy provided, and the Alphabetic Index, Tabular List, or another coding guideline does not provide sequencing direction, any one of the diagnoses may be sequenced first." "When the physician has documented what appears to be a current diagnosis in the body of the record, but has not included the diagnosis in the final diagnostic statement, the physician should be asked whether the diagnosis should be added." (Source [facility] 2 QTR90. p3-4) JOZEFD
--- NOTE | 2019-08-02 08:05 | Coding Query ---
CONGESTIVE HEART FAILURE To Promote full compliance with coding requirements relating to patient care, physician participation is requested in all cases of labor supervisor uncertainty. Please assist us with the following questions. Coding Question: A diagnosis of Congestive Heart Failure is documented in the patient's medical record. To accurately code this diagnosis and to compare patient severity, we ask that you specify the type of heart failure by placing an X within the parenthesis (x). Thanks again for your help on this! Have a great day! SYSTOLIC HEART FAILURE, POA ( ) Acute ( ) Chronic (X) Acute on Chronic ( ) Rheumatic ( ) Unknown DIASTOLIC HEART FAILURE, POA ( ) Acute ( ) Chronic ( ) Acute on Chronic ( ) Rheumatic ( ) Unknown COMBINED SYSTOLIC AND DIASTOLIC HEART FAILURE, POA ( ) Acute ( ) Chronic ( ) Acute on Chronic ( ) Rheumatic ( ) Unknown Thank you! Roxann JARAMILLO
--- NOTE | 2019-08-02 20:10 | Billing Data ---
Date of Service July 26, 2019 Coding Level of Care Code 46102 Initial Inpt Care Lvl 3
== END 2019-07-28 15:06 | disposition expired | DRG 843 ==
LOC: ED 03:09 → 2S 06:47 → SUATTDRO 06:47 → 2S 07:00 → 2W 07-27 21:45